=== PATIENT | female | born 1955 | race Caucasian/White ===

== ENCOUNTER 2019-03-22 17:15 | Emergency (ER) | payer BC, MEDICARE, SELFPAY ==
[2019-03-22 17:29] VITALS: BP 179/90; PULSE 58; RESP 16; TEMP 36.7; O2SAT 97; BMI 28.9
--- NOTE | 2019-03-22 18:26 | CTR_ITS ---
PROCEDURE INFORMATION: Exam: CT Abdomen And Pelvis With Contrast Exam date and time: 03/22/2019 6:50 PM Age: 63 years old Clinical indication: Other: Diarrhea; Abdominal pain; Localized; Left; Prior surgery; Surgery type: Hysto; Additional info: L lower abdominal pain/back pain TECHNIQUE: Imaging protocol: Computed tomography of the abdomen and pelvis with intravenous contrast. Total DLP: 792.51 mGy-cm Radiation optimization: All CT scans at this facility use at least one of these dose optimization techniques: automated exposure control; mA and/or kV adjustment per patient size (includes targeted exams where dose is matched to clinical indication); or iterative reconstruction. Contrast material: OMNI 300; Contrast volume: 95 ml; Contrast route: IV; COMPARISON: CT Abdomen/Pelvis Renal [id number] 04/25/2012 5:27 PM FINDINGS: Lungs: There is subpleural atelectasis of the dependent portions of the lungs. Liver: Unremarkable.No mass. Gallbladder and bile ducts: The gallbladder is contracted. Pancreas: Normal. No ductal dilation. Spleen: Normal. No splenomegaly. Adrenals: Normal. No mass. Kidneys and ureters: There is no evidence of hydronephrosis. There is no evidence of renal calcifications. Stomach and bowel: Extensive diverticulosis is present in the distal colon. The wall of the descending and sigmoid colon appears mildly thickened but is also collapsed and the appearance is very similar to the prior exam. This appearance may reflect lack of distention or less likely mild colitis since there is no adjacent inflammatory change or induration of the adjacent fat. No focal diverticulitis. The loops of small bowel have an appropriate appearance. Appendix: A normal appendix is identified. Intraperitoneal space: Unremarkable. No free air. No significant fluid collection. Vasculature: The aorta demonstrates moderate atherosclerotic calcification. Lymph nodes: Unremarkable.No enlarged lymph nodes. Bladder: There is nonspecific bladder wall thickening. This may be related to incomplete distention. Reproductive: Unremarkable as visualized. Bones/joints: Moderate degenerative changes are noted in the spine. No acute bony abnormality. Soft tissues: Unremarkable. CT/CT abdomen pelvis w con* [id number] IMPRESSION: Extensive diverticulosis. The wall of the descending and sigmoid colon appears mildly thickened. This appearance may reflect mild colitis or lack of distention similar to the prior exam. Otherwise, no acute abnormality. Radiation Dose CTDIVOL = (mGy): DLP = 792.51 (mGy-cm)
[2019-03-22 18:42] LABS: Basophils # 0.1 10^3/uL (0.0-0.1); Basophils % 0.9 %; Eosinophils # 0.3 10^3/uL (0.0-0.8); Hematocrit 35.3 % (37.0-47.0); Hemoglobin 11.6 g/dL (11.5-15.3); Lymphocytes % 46.4 %; Mean Corpuscular HGB Conc 32.9 g/dL (30.0-36.0); Mean Corpuscular Hemoglobin 29.8 pg (28.0-34.0); Mean Corpuscular Volume 90.7 fL (81-99); Mean Platelet Volume 10.3 fL (7.4-10.4); Monocytes # 0.4 10^3/uL (0.2-0.9); Monocytes % 6.1 %; Neutrophils # 2.7 10^3/uL (1.8-7.7); Neutrophils % 41.4 %; Nucleated Red Blood Cells % 0 %; Platelet Count 190 10^3/cmm (130-400); Red Blood Count 3.89 10^6/uL (4.1-5.3); Red Cell Distribution Width 12.6 % (12.1-15.1); White Blood Count 6.4 10^3/uL (4.0-10.0)
[2019-03-22 19:01] LABS: Alanine Aminotransferase 11 U/L (0-33); Albumin Level 4.3 g/dL (3.5-5.2); Alkaline Phosphatase 81 IU/L (35-105); Anion Gap 14.8 (5-19); Aspartate Amino Transferase 19 U/L (0-32); Blood Urea Nitrogen 12 mg/dL (8-23); Calcium 9.1 mg/dL (8.5-10.5); Carbon Dioxide 29 mmol/L (22-29); Chloride 101 mmol/L (98-107); Globulin 2.7 g/dL (1.3-4.6); Glucose 123 mg/dL (65-115); Potassium 3.8 mmol/L (3.5-5.1); Sodium 141 mmol/L (136-145); Total Bilirubin 0.2 mg/dL (0.15-1.2)
[2019-03-22 19:32] LABS: Add Urine Microscopic? NO
[2019-03-22] MEDS: iohexol 300 mg/mL 100 mL Btl 95 ML IV (19:39)
[2019-03-22 19:40] LABS: Bilirubin Urine Neg (NEGATIVE); Blood Urine Neg (Negative); Glucose Urine UA Norm (Normal); Ketones Urine Negative (Negative); Leukocyte Esterase Urine Negative (Negative); Nitrate Urine Negative (Negative); Protein Urine Neg (Negative); Specific Gravity, Urine 1.015 (1.005-1.030); Urine Appearance Clear (CLEAR); Urine Color Yellow (Yellow); Urobilinogen Urine Norm (Negative); pH Urine 6.5 (5-7)
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
[2019-03-22 20:50] VITALS: BP 114/65; PULSE 65; RESP 18; O2SAT 98
== END 2019-03-22 20:51 | disposition home or self-care (01) ==
PROVIDERS: Emergency Provider Physician Assistant; Family Provider Nurse Practitioner; PCP Nurse Practitioner
DX: K57.90 Diverticulosis of intestine, part unspecified, without perforation or abscess without bleeding (principal); K52.9 Noninfective gastroenteritis and colitis, unspecified; I10 Essential (primary) hypertension; Z87.891 Personal history of nicotine dependence
CPT/HCPCS: 74177; 80053; 81003; 85025; 99281; 99283; A9270; Q9967

== ENCOUNTER → 2019-04-01 10:39 | Outpatient (BNVA) | payer BC, MEDICARE, SELFPAY | PROVIDERS: Family Provider Nurse Practitioner; PCP Nurse Practitioner; Visit Provider Nurse Practitioner | DX: I10 Essential (primary) hypertension (principal); E03.8 Other specified hypothyroidism | CPT/HCPCS: 80061; 84443 ==

== ENCOUNTER → 2019-08-21 13:41 | Outpatient (BNVA) | payer BC, MEDICARE, SELFPAY | PROVIDERS: Family Provider Nurse Practitioner; PCP Nurse Practitioner; Visit Provider Nurse Practitioner Family | DX: R53.83 Other fatigue (principal); R07.9 Chest pain, unspecified; E78.2 Mixed hyperlipidemia; G47.33 Obstructive sleep apnea (adult) (pediatric); F41.9 Anxiety disorder, unspecified; F32.9 Major depressive disorder, single episode, unspecified; E03.8 Other specified hypothyroidism | CPT/HCPCS: 80053; 82550; 84443; 84484; 85025 ==

== ENCOUNTER 2019-09-03 14:13 | Emergency (ER) | payer BC, MEDICARE, SELFPAY ==
[2019-09-03 14:26] VITALS: BP 141/91; PULSE 69; RESP 16; TEMP 36.8; O2SAT 96; BMI 27.9
[2019-09-03 14:48] VITALS: BP 123/100; PULSE 61; RESP 16; O2SAT 98
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
--- NOTE | 2019-09-03 14:50 | CT_ITS ---
WS: [id number] CT ABDOMEN AND PELVIS WITH CONTRAST HISTORY: RIGHT lower quadrant pain. TECHNIQUE: Imaging performed of the abdomen and pelvis with IV contrast. Single phase imaging of the abdomen. Coronal and sagittal reformats are submitted. All CT scans at [facility] use at least one of these dose optimization techniques: automated exposure control; mA and/or kV adjustment per patient size (includes targeted exams where dose is matched to clinical indication); or iterativ e reconstruction. IV CONTRAST: Omnipaque 300; 95 mL IV. Oral contrast: No DLP: 638.09 mGy.cm COMPARISON: 03/22/2019 Lower thorax: Lung bases are clear. Mild cardiomegaly. Small hiatal hernia. Liver/biliary system: Normal size with no intrahepatic dilatation. Gallbladder: Normal. No gallstones or wall thickening. No pericholecystic fluid. Pancreas: Normal. Spleen: Normal. Adrenal glands: Normal. Right kidney: Normal size kidney. There are multiple small hypodensities scattered throughout the cor albin. No solid mass identified. No obstruction. Left kidney: A few scattered cortical hypodensities similar to the prior study. No obstruction or elena id mass. Aorta: Extensive moderate atherosclerosis. No aneurysm. Lymphadenopathy: None. Free fluid: None. GI tract: The appendix is normal and contains air. No hyperemia or wall thickening. Numerous divertic varinder in the sigmoid and descending colon. There is mild chronic wall thickening without evidence for a cute diverticulitis. No GI tract obstruction. Very mild mucosal thickening involving the hepatic flex ure and transverse colon. Abdominal wall: Unremarkable abdominal wall. No hernia. Pelvis: No free fluid or adenopathy. Urinary bladder is negative. Bones: Mild degenerative disc disease at L2-3. CT/CT abdomen pelvis w con* [id number] IMPRESSION: 1. Normal appendix. 2. Numerous diverticula in the descending and sigmoid colon without evidence f or acute diverticulitis. 3. Suspect very minimal colitis involving the hepatic flexure and transverse c olon. 4. No ascites or adenopathy.
[2019-09-03 14:56] LABS: Bilirubin Urine Neg (NEGATIVE); Blood Urine Neg (Negative); Glucose Urine UA Norm (Normal); Ketones Urine Negative (Negative); Nitrate Urine Negative (Negative); Protein Urine Neg (Negative); Specific Gravity, Urine 1.005 (1.005-1.030); Urine Appearance Clear (CLEAR); Urine Color Yellow (Yellow); pH Urine 7 (5-7)
[2019-09-03 14:57] LABS: Leukocyte Esterase Urine Negative (Negative); Urobilinogen Urine Neg (Negative)
[2019-09-03 14:59] LABS: Add Urine Culture? No; Bacteria Urine TRACE; RBC Urine 0-4 /hpf (0-2); Squamous Epithelial Cell Urine 0-4 (0-5)
[2019-09-03 15:03] LABS: Basophils # 0.1 10^3/uL (0.0-0.1); Basophils % 0.9 %; Eosinophils # 0.1 10^3/uL (0.0-0.8); Eosinophils % 1.8 %; Hematocrit 37.4 % (37.0-47.0); Lymphocytes # 1.8 10^3/uL (0.8-4.8); Mean Corpuscular HGB Conc 32.1 g/dL (30.0-36.0); Mean Corpuscular Hemoglobin 30.7 pg (28.0-34.0); Mean Corpuscular Volume 95.7 fL (81-99); Mean Platelet Volume 10.2 fL (7.4-10.4); Monocytes # 0.3 10^3/uL (0.2-0.9); Monocytes % 5.8 %; Neutrophils # 3.23 10^3/uL (1.8-7.7); Neutrophils % 58.3 %; Nucleated Red Blood Cells % 0 %; Platelet Count 215 10^3/cmm (130-400); Red Blood Count 3.91 10^6/uL (4.1-5.3); White Blood Count 5.5 10^3/uL (4.0-10.0)
[2019-09-03] MEDS: iohexol 300 mg/mL 100 mL Btl IV (15:14)
[2019-09-03 15:20] LABS: Alanine Aminotransferase 13 U/L (0-33); Albumin Level 4.5 g/dL (3.5-5.2); Alkaline Phosphatase 80 IU/L (35-105); Anion Gap 14.9 (5-19); Aspartate Amino Transferase 21 U/L (0-32); Blood Urea Nitrogen 10 mg/dL (8-23); Calcium 8.9 mg/dL (8.5-10.5); Carbon Dioxide 25 mmol/L (22-29); Chloride 103 mmol/L (98-107); Globulin 2.6 g/dL (1.3-4.6); Glucose 145 mg/dL (65-115); Lipase 29 U/L (13-60); Osmolality Calculated 287 mOsm/kg (285-295); Potassium 3.9 mmol/L (3.5-5.1); Sodium 139 mmol/L (136-145); Total Bilirubin 0.2 mg/dL (0.15-1.2); Total Protein 7.1 g/dL (6.6-8.7)
[2019-09-03 16:01] VITALS: BP 137/81; PULSE 54; PULSE 55; RESP 17; O2SAT 96; O2SAT 97
== END 2019-09-03 16:08 | disposition home or self-care (01) ==
PROVIDERS: Emergency Medicine; Emergency Provider Nurse Practitioner Family; PCP Nurse Practitioner
DX: R10.31 Right lower quadrant pain (principal); I10 Essential (primary) hypertension; Z87.891 Personal history of nicotine dependence
CPT/HCPCS: 12345; 74177; 80053; 81001; 83690; 85025; 99282; 99283; Q9967

== ENCOUNTER → 2019-09-10 17:27 | Outpatient (BNVA) | payer BC, MEDICARE, SELFPAY | PROVIDERS: PCP Nurse Practitioner; Visit Provider Nurse Practitioner | DX: R73.9 Hyperglycemia, unspecified (principal); E03.8 Other specified hypothyroidism; G47.00 Insomnia, unspecified; F41.1 Generalized anxiety disorder | CPT/HCPCS: 83036 ==

== ENCOUNTER → 2019-09-26 14:17 | Outpatient (BNVA) | payer BC, MEDICARE, SELFPAY | PROVIDERS: PCP Nurse Practitioner; Visit Provider Internal Medicine | DX: E89.0 Postprocedural hypothyroidism (principal); G47.33 Obstructive sleep apnea (adult) (pediatric); R07.9 Chest pain, unspecified; E78.49 Other hyperlipidemia; R32 Unspecified urinary incontinence; E55.9 Vitamin D deficiency, unspecified; R73.03 Prediabetes | CPT/HCPCS: 99204 ==

== ENCOUNTER → 2019-10-28 14:09 | Outpatient (BNVA) | payer BC, MEDICARE, SELFPAY | PROVIDERS: PCP Nurse Practitioner; Visit Provider Internal Medicine | DX: E55.9 Vitamin D deficiency, unspecified (principal); E78.49 Other hyperlipidemia; E89.0 Postprocedural hypothyroidism; G47.33 Obstructive sleep apnea (adult) (pediatric); R73.03 Prediabetes | CPT/HCPCS: 99214 ==

== ENCOUNTER → 2019-11-04 12:27 | Outpatient (BNVA) | payer BC, MEDICARE, SELFPAY | PROVIDERS: PCP Nurse Practitioner; Visit Provider Nurse Practitioner | DX: M79.7 Fibromyalgia (principal); E55.9 Vitamin D deficiency, unspecified | CPT/HCPCS: 82306; 84439; 84443; 85025 ==

== ENCOUNTER → 2020-01-27 17:47 | Outpatient (BNVA) | payer BC, MEDICARE, SELFPAY | PROVIDERS: PCP Nurse Practitioner; Visit Provider Nurse Practitioner Family | DX: Z20.828 Contact with and (suspected) exposure to other viral communicable diseases (principal) | CPT/HCPCS: 87635 ==

== ENCOUNTER → 2020-02-10 15:40 | Outpatient (BNVA) | payer BC, MEDICARE, SELFPAY | PROVIDERS: PCP Nurse Practitioner; Visit Provider Internal Medicine | DX: E55.9 Vitamin D deficiency, unspecified (principal); E78.49 Other hyperlipidemia; E89.0 Postprocedural hypothyroidism; G47.33 Obstructive sleep apnea (adult) (pediatric); R73.03 Prediabetes | CPT/HCPCS: 99214 ==

== ENCOUNTER → 2020-02-18 12:23 | Outpatient (BNVA) | payer BC, MEDICARE, SELFPAY | PROVIDERS: PCP Nurse Practitioner; Visit Provider Nurse Practitioner | DX: Z20.828 Contact with and (suspected) exposure to other viral communicable diseases (principal) | CPT/HCPCS: 87635 ==

== ENCOUNTER → 2020-03-19 14:55 | Outpatient (BNVA) | payer BC, MEDICARE, SELFPAY | PROVIDERS: PCP Nurse Practitioner; Visit Provider Nurse Practitioner Family | DX: Z20.828 Contact with and (suspected) exposure to other viral communicable diseases (principal); J02.9 Acute pharyngitis, unspecified; J45.909 Unspecified asthma, uncomplicated | CPT/HCPCS: 87071; 87635; 87880 ==

== ENCOUNTER → 2020-05-05 15:48 | Outpatient (BNVA) | payer BC, MEDICARE, SELFPAY | PROVIDERS: PCP Nurse Practitioner; Visit Provider Nurse Practitioner | DX: E55.9 Vitamin D deficiency, unspecified (principal); E78.49 Other hyperlipidemia; E89.0 Postprocedural hypothyroidism; F41.1 Generalized anxiety disorder; H61.21 Impacted cerumen, right ear; R32 Unspecified urinary incontinence; G47.00 Insomnia, unspecified | CPT/HCPCS: 80061; 82306; 83721; 84439; 84443 ==

== ENCOUNTER 2020-06-03 06:00 | Outpatient (RCR) | payer BC, MEDICARE, SELFPAY | END 2020-06-12 23:59 | disposition home or self-care (01) | LOC: TPT 06:00 | PROVIDERS: PCP Nurse Practitioner; Referring Provider Nurse Practitioner Family; Visit Provider Nurse Practitioner Family | DX: M54.2 Cervicalgia (principal); G89.29 Other chronic pain | CPT/HCPCS: 97110; 97140; 97161 ==

== ENCOUNTER 2020-06-13 06:00 | Outpatient (RCR) | payer MEDICARE, BC, SELFPAY | END 2020-07-13 23:59 | disposition home or self-care (01) | LOC: TPT 06:00 | PROVIDERS: PCP Nurse Practitioner; Referring Provider Nurse Practitioner Family; Visit Provider Nurse Practitioner Family | DX: M54.2 Cervicalgia (principal); G89.29 Other chronic pain | CPT/HCPCS: 97110; 97140 ==

== ENCOUNTER → 2020-08-04 15:08 | Outpatient (BNVA) | payer MEDICARE, BC, SELFPAY | PROVIDERS: PCP Nurse Practitioner; Visit Provider Nurse Practitioner | DX: E03.8 Other specified hypothyroidism (principal); I10 Essential (primary) hypertension; J45.20 Mild intermittent asthma, uncomplicated; Z78.0 Asymptomatic menopausal state | CPT/HCPCS: 80053; 80061; 83721; 84439; 84443; 84481; 85025 ==

== ENCOUNTER → 2020-08-07 10:02 | Outpatient (BNVA) | payer MEDICARE, BC, SELFPAY | PROVIDERS: PCP Nurse Practitioner; Visit Provider Nurse Practitioner | DX: Z20.822 Contact with and (suspected) exposure to COVID-19 (principal) | CPT/HCPCS: 87635 ==

== ENCOUNTER 2020-10-10 10:02 | Outpatient (CLI) | payer MEDICARE, BC, SELFPAY ==
[2020-10-10 10:17] VITALS: BP 161/79; PULSE 57; RESP 20; TEMP 36.7; O2SAT 96; BMI 29.2
[2020-10-10 11:15] VITALS: BP 148/76; PULSE 58; RESP 20; TEMP 37.4; O2SAT 95
[2020-10-10 12:12] VITALS: BP 155/78; PULSE 58; RESP 16; TEMP 37.1; O2SAT 92
== END 2020-10-10 12:12 | disposition home or self-care (01) ==
PROVIDERS: PCP Nurse Practitioner; Visit Provider Nurse Practitioner Family
DX: U07.1 COVID-19 (principal)
CPT/HCPCS: 96365

== ENCOUNTER → 2020-12-17 14:05 | Outpatient (BNVA) | payer BC, MEDICARE, SELFPAY | PROVIDERS: PCP Nurse Practitioner; Visit Provider Nurse Practitioner | DX: E03.8 Other specified hypothyroidism (principal); E78.5 Hyperlipidemia, unspecified | CPT/HCPCS: 80053; 80061; 84443 ==

== ENCOUNTER → 2021-04-12 15:28 | Outpatient (BNVA) | payer BC, MEDICARE, SELFPAY | PROVIDERS: PCP Nurse Practitioner; Visit Provider Nurse Practitioner | DX: I10 Essential (primary) hypertension (principal); B00.9 Herpesviral infection, unspecified; L57.8 Other skin changes due to chronic exposure to nonionizing radiation | CPT/HCPCS: 81003 ==

== ENCOUNTER → 2021-10-19 11:59 | Outpatient (BNVA) | payer BC, MEDICARE, SELFPAY | PROVIDERS: PCP Nurse Practitioner; Visit Provider Nurse Practitioner | DX: E55.9 Vitamin D deficiency, unspecified (principal); R53.83 Other fatigue; E03.8 Other specified hypothyroidism; G47.00 Insomnia, unspecified; I10 Essential (primary) hypertension; R32 Unspecified urinary incontinence | CPT/HCPCS: 80053; 82306; 82607; 84443; 85025 ==

== ENCOUNTER → 2022-02-03 09:12 | Outpatient (BNVA) | payer BC, MEDICARE, SELFPAY | PROVIDERS: PCP Nurse Practitioner; Visit Provider Nurse Practitioner | DX: I10 Essential (primary) hypertension (principal) | CPT/HCPCS: 80053; 80061; 84443 ==

== ENCOUNTER → 2022-07-04 14:29 | Outpatient (BNVA) | payer BC, MEDICARE, SELFPAY | PROVIDERS: PCP Nurse Practitioner; Visit Provider Nurse Practitioner | DX: E55.9 Vitamin D deficiency, unspecified (principal); J45.909 Unspecified asthma, uncomplicated; E03.8 Other specified hypothyroidism; I10 Essential (primary) hypertension | CPT/HCPCS: 80053; 80061; 82306; 84443 ==

== ENCOUNTER → 2022-08-24 13:47 | Outpatient (BNVA) | payer BC, MEDICARE, SELFPAY | PROVIDERS: PCP Nurse Practitioner; Visit Provider Nurse Practitioner | DX: E03.8 Other specified hypothyroidism (principal) | CPT/HCPCS: 80053; 84439; 84443; 84481; 85025 ==

== ENCOUNTER → 2022-09-26 16:03 | Outpatient (BNVA) | payer BC, MEDICARE, SELFPAY | PROVIDERS: PCP Nurse Practitioner; Visit Provider Internal Medicine Cardiovascular Disease | DX: I47.1 Supraventricular tachycardia (principal); E03.8 Other specified hypothyroidism; R73.9 Hyperglycemia, unspecified; R94.31 Abnormal electrocardiogram [ECG] [EKG] | CPT/HCPCS: 83036; 84443; 93005 ==

== ENCOUNTER → 2022-10-04 14:58 | Outpatient (BNVA) | payer BC, MEDICARE, SELFPAY | PROVIDERS: PCP Nurse Practitioner; Visit Provider Nurse Practitioner | DX: R05.9 Cough, unspecified (principal) | CPT/HCPCS: 71046 ==

== ENCOUNTER → 2022-11-10 10:56 | Outpatient (BNVA) | payer BC, MEDICARE, SELFPAY | PROVIDERS: PCP Nurse Practitioner; Visit Provider Nurse Practitioner | DX: E03.8 Other specified hypothyroidism (principal) | CPT/HCPCS: 84439; 84443; 84481 ==

== ENCOUNTER → 2022-12-07 13:37 | Outpatient (BNVA) | payer BC, MEDICARE, SELFPAY | PROVIDERS: PCP Nurse Practitioner; Visit Provider Nurse Practitioner | DX: E03.8 Other specified hypothyroidism (principal) | CPT/HCPCS: 84439; 84443; 84481 ==

== ENCOUNTER 2022-12-24 21:26 | Observation (INO) | payer BC, MEDICARE, SELFPAY ==
--- NOTE | 2022-12-24 21:26 | ECG_ITS ---
[facility] Test Date: 2022-12-24 Pat Name: Simran Pendleton Department: Room: Gender: Female Film Masker: : 1955 Requested By: Lester Farmer Order Number: [id number] Angelito MD: Martita Jordan M.D. Measurements Intervals Fleming Rate: 76 P: 53 CT: 160 QRS: 38 QRSD: 89 T: 10 QT: 315 QTc: 354 Interpretive Statements SINUS RHYTHM WITH OCCASIONAL VENTRICULAR PREMATURE COMPLEXES NONSPECIFIC T-WAVE ABNORMALITY Compared to ECG 09/26/2022 16:07:23 Possible ischemia no longer present T-wave abnormality still present Electronically Signed On 12-25-2022 8:28:56 MANAGER OF CREATIVE SERVICES by Martita Jordan M.D. [email or web address]/[id number] f
[2022-12-24 21:27] VITALS: BP 175/103; PULSE 76; RESP 16; TEMP 36.5; O2SAT 95
--- NOTE | 2022-12-24 21:45 | XRR_ITS ---
PROCEDURE INFORMATION: Exam: XR Chest Exam date and time: 12/24/2022 10:05 PM Age: 67 years old Clinical indication: Chest pressure; Patient HX: Sudden onset chest pain; No previous cardiac HX TECHNIQUE: Imaging protocol: Radiologic exam of the chest. Views: 1 view. COMPARISON: CR XR chest 2V* [id number] 10/04/2022 2:59 PM FINDINGS: Lungs: Unremarkable. No consolidation. Pleural spaces: Unremarkable. No pleural effusion. No pneumothorax. Heart/Mediastinum: Unremarkable. No cardiomegaly. Bones/joints: Unremarkable. XR/XR chest 1V portable [id number] IMPRESSION: No acute findings.
[2022-12-24 22:10] LABS: Basophils % 0.7 %; Eosinophils # 0.1 10^3/uL (0.0-0.8); Eosinophils % 1.7 %; Hematocrit 37.8 % (36-47); Lymphocytes # 1.8 10^3/uL (0.8-4.8); Lymphocytes % 30.8 %; Mean Corpuscular HGB Conc 32.5 g/dL (30-55); Mean Corpuscular Hemoglobin 30.2 pg (27-33); Mean Corpuscular Volume 92.9 fl (85-98); Mean Platelet Volume 9.4 fL (7.4-10.4); Monocytes # 0.4 10^3/uL (0.2-0.9); Monocytes % 7.4 %; Neutrophils # 3.53 10^3/uL (1.8-7.7); Neutrophils % 58.9 %; Nucleated Red Blood Cells % 0 %; Platelet Count 196 10^3/cmm (157-399); Red Blood Count 4.07 10^6/uL (3.85-5.65); White Blood Count 5.98 10^3/uL (3.29-11.43)
[2022-12-24] MEDS: ondansetron 2 mg/ML SDV 2 mL 4 MG IVP (22:15)
[2022-12-24] MEDS: lidocaine 2% viscous 15 ML, aluminum-mag hydrox-simethicon 30 ML, sucralfate oral liq 1 GM PO (22:15)
[2022-12-24] MEDS: morphine 4 mg/mL SDV 1 mL IVP (22:15)
[2022-12-24 22:28] LABS: Troponin(5th) Baseline 9 ng/L (0-10)
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
[2022-12-24 22:45] LABS: Alanine Aminotransferase 15 U/L (0-33); Albumin Level 4.3 g/dL (3.5-5.2); Alkaline Phosphatase 87 U/L (35-105); Anion Gap 17.6 (5-19); Aspartate Amino Transferase 16 U/L (0-32); Blood Urea Nitrogen 16 mg/dL (8-23); Calcium 8.5 mg/dL (8.5-10.5); Carbon Dioxide 23 mmol/L (22-29); Chloride 102 mmol/L (98-107); Creatine Phosphokinase 56 U/L (26-192); Globulin 2.2 g/dL (1.3-4.6); Glomerular Filtration Rate 62.3 mL/min (90-130); Glucose 168 mg/dL (65-115); NT Pro B Type Natriuretic Pept 198 pg/mL (0-125); Osmolality Calculated 293 mOsm/kg (285-295); Potassium 3.6 mmol/L (3.5-5.1); Sodium 139 mmol/L (136-145); Total Bilirubin 0.2 mg/dL (0.15-1.2); Total Protein 6.5 g/dL (6.6-8.7)
[2022-12-25] VITALS (28 sets, daily range): BP systolic 111–167; BP diastolic 66–98; PULSE 62–89; RESP 10–25; TEMP 36.5–36.9; O2SAT 94–100
[2022-12-25] MEDS: ketorolac 30 mg/mL INJ IVP (00:08)
[2022-12-25 00:20] LABS: Troponin 5 2HR 34.93 ng/L (0-10)
[2022-12-25 00:25] LABS: Troponin 5 2HR Delta 25.93 ABS# (0-10)
[2022-12-25] MEDS: nitroglycerin 1 gm/inch oint Pkt 1 INCH TOPICAL (00:48)
[2022-12-25] MEDS: clopidogrel 300 mg Tablet PO (00:48)
[2022-12-25] MEDS: enoxaparin 80 mg/0.8 mL Syringe SUBCUT ×2 (01:54→15:00)
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
[2022-12-25] MEDS: famotidine 20 mg/2 mL INJ IVP (03:22)
--- NOTE | 2022-12-25 03:23 | USCV_ITS ---
Simran Pendleton Age: 67 Gender: F : 1955 Exam Date: 12/25/2022 06:22 Ordering Phys: Brendan Sharif MD Technologist: Dusty Woods Exam Location: [facility] Indication: nstemi BP: 133 / 98 HR: 70 Rhythm: Sinus Technical Quality: Adequate MEASUREMENTS (Male / Female) Normal Values 2D ECHO LVOT Diameter 2.0 cm LV Ejection Fraction MOD 2C 74.8 % LV Ejection Fraction 2C AL 75.2 % LA Diameter 3.5 cm LA Width 3.5 cm LA Height 4.1 cm RA Width 2.8 cm RA Height 4.1 cm Aorta at Sinotubular Diameter 2.5 cm M-MODE Aortic Annulus Diameter 2.7 cm LA Ao Ratio MM 1.3 MV E Point Septal Separation 0.6 cm DOPPLER AV Peak Velocity 118.0 cm/s LVOT Peak Velocity 87.0 cm/s AV Area Cont Eq vti 2.2 cm squared AV Area Cont Eq pk 2.3 cm squared MV Peak Velocity 93.0 cm/s MV Area PHT 5.0 cm squared Mitral E to A Ratio 0.8 MV E' Velocity 30.0 cm/s Mitral E to MV E' Ratio 7.9 Mitral E to LV E' Lateral Ratio 8.6 Mitral E to LV E' Septal Ratio 7.5 TR Peak Velocity 149.6 cm/s TR Peak Gradient 9.0 mmHg TR Mean Velocity 105.0 cm/s TR Mean Gradient 4.9 mmHg TR Velocity Time Integral 34.5 cm Right Atrial Pressure 8.0 mmHg Pulmonary Artery Systolic Pressu 17.0 mmHg PV Peak Velocity 90.7 cm/s RV Acceleration Time 0.1 s RV Ejection Time 0.3 s RV AcT/ET 0.5 FINDINGS Left Ventricle Normal left ventricular size, systolic function and wall thickness, with no regional wall motion abnormalities. Normal left ventricular wall thickness. Stage I diastolic dysfunction Right Ventricle The right ventricle is normal in size and function. Right Atrium The right atrium is normal in size. Left Atrium The left atrium is normal in size. Mitral Valve Structurally normal mitral valve without significant stenosis or prolapse. There is no mitral regurgitation. Aortic Valve Structurally normal aortic valve without significant sclerosis or stenosis. There is no aortic regurgitation. Tricuspid Valve Structurally normal tricuspid valve without significant stenosis. There is trace regurgitation. Pulmonary artery systolic pressure is normal. Pulmonic Valve Structurally normal pulmonic valve without significant stenosis. There is no pulmonic regurgitation. Pericardium Normal pericardium without effusion. Aorta Normal ascending aorta dimension. IVC The inferior vena cava appears normal. CONCLUSIONS Tri Smith MD (Electronically Signed) Final Date: 25 December 2022 11:03 S
--- NOTE | 2022-12-25 03:45 | ECG_ITS ---
[facility] Test Date: 2022-12-25 Pat Name: Simran Pendleton Department: Room: 102 Gender: Female Leather Carver: : 1955 Requested By: Lester Farmer Order Number: [id number] Angelito MD: Martita Jordan M.D. Measurements Intervals [place] Rate: 62 P: 14 [place]: 176 QRS: 16 QRSD: 87 T: -34 QT: 433 QTc: 443 Interpretive Statements SINUS RHYTHM MODERATE T-WAVE ABNORMALITY, CONSIDER ANTERIOR ISCHEMIA [-0.1+ mV T-WAVE IN V3/V4] Compared to ECG 12/24/2022 21:26:57 Possible ischemia now present Ventricular premature complex(es) no longer present T-wave abnormality still present Electronically Signed On 12-25-2022 8:33:59 FURNACE COMBUSTION TESTER by Martita Jordan M.D. [id number]
[2022-12-25 04:32] LABS: Troponin 5 6HR 142.5 ng/L (0-10); Troponin 5 6HR Delta 133.5 ng/L (0-12)
[2022-12-25] MEDS: budesonide 0.5 mg/2 mL Neb INHALATION ×2 (08:29→20:24)
[2022-12-25] MEDS: albuterol 2.5 mg/3 mL Neb INHALATION ×4 (08:30→20:24)
--- NOTE | 2022-12-25 08:30 | PC.NURSE ---
pt stated she has left neck pain radiating to her left shoulder pain and left upper chest area. Rated at 8/10 per pain scale. EKG taken. Notified die machine operator.
[2022-12-25] MEDS: isosorbide mononitrate ER 30 mg Tablet PO (09:18)
[2022-12-25] MEDS: aspirin 325 mg Tablet PO (09:18)
[2022-12-25] MEDS: thyroid 60 mg Tablet PO (09:18)
--- NOTE | 2022-12-25 10:03 | ECG_ITS ---
[facility] Test Date: 2022-12-25 Pat Name: Simran Pendleton Department: Room: 102 Gender: Female Graduate Assistant: : 1955 Requested By: Darian Robbins Order Number: [id number] Angelito MD: Martita Jordan M.D. Measurements Intervals [place] Rate: 71 P: 7 [place]: 177 QRS: 18 QRSD: 90 T: 78 QT: 412 QTc: 449 Interpretive Statements SINUS RHYTHM ST DEVIATION AND MODERATE T-WAVE ABNORMALITY, CONSIDER ANTERIOR ISCHEMIA [-0.1+ mV T-WAVE IN V3/V4] INTERPRETATION BASED ON A DEFAULT AGE OF 40 YEARS Compared to ECG 12/25/2022 03:58:10 No significant changes Electronically Signed On 12-26-2022 8:10:04 STORAGE AND BACKUP ADMINISTRATOR by Martita Jordan M.D. [id number] f
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
[2022-12-25] MEDS: nitroglycerin 0.4 mg sublingual Tablet SUBLINGUAL ×5 (11:05→16:59)
--- NOTE | 2022-12-25 11:35 | PC.NURSE ---
chest pain and left shoulder pain is down from 4/10 to 2/10 per pain scale by nitro sl x3 doses. Pt now complains of leg and feet pain from her fibromyalgia and takes hydrocodone for it. Shipping Receiving Manager notified in person of her pain is down to 2 after 3 doses of nitro sl.
[2022-12-25] MEDS: HYDROcodone-acetaminophen 7.5-325 mg Tablet 1 TAB PO (11:45)
--- NOTE | 2022-12-25 12:23 | PC.NURSE ---
per military education coordinator patient can eat soft diet only and order for one time troponin and monitor for further recurrent chest pains.
[2022-12-25 13:28] LABS: Troponin T (5th) Once 185 ng/L (0-10)
--- NOTE | 2022-12-25 13:33 | PC.NURSE ---
Pt denies any chest pain or Left shoulder pain at this time when asked. She stated, none. She was asking for a sweet tea. Educated pt that if she started to have a recurrent chest pain to let is know immediately. Notified ip architect for her one time troponin which is increased to 185.
--- NOTE | 2022-12-25 15:14 | PC.NURSE ---
pt denies any chest pain at this time she said, i'm doing good so far.
--- NOTE | 2022-12-25 16:43 | XACV_ITS ---
Exam Room: 2 Ht: 165 cm Wt: 83 kg BSA: 1.98 m2 Gender: Female : 1955 Any Known Allergies: Other Exam Priority: Routine Procedure(s): Procedure Description: Diagnostic procedure Procedure Description: PCI procedure Procedure Description: Left Heart Catheterization Procedure Description: Left ventriculography Procedure Description: Drug Eluting Coronary Stent Procedure Description: PTCA Procedure Description: Coronary Angiography Diagnostic Cath Status: Urgent Diagnostic Findings * Left main was normal. Left circumflex artery showed 80% stenosis in the midportion. Left anterior descending artery showed 50% diffuse lesion in the midportion. Right coronary artery showed minor luminal irregularities dominant vessel. LV gram revealed normal LV function with EF about 60%. PCI Status: Urgent Interventional Findings * Left circumflex artery lesion was revascularized using 3.5 x 26 mm drug-eluting Angelia with excellent results. Conclusions 1. Patient to continue her dual antiplatelet aspirin and Plavix. Post Op Diagnosis: Description: PCI to the left circumflex artery was performed using EBU 3.5 guiding catheter and cougar wire. 3.5 x 26 drug-eluting stent was placed with good results. Patient received Lovenox about 3 hours prior to the procedure Aggrastat bolus was given. Patient also had a loading dose of Plavix in the emergency room yesterday and received 1 Plavix 75 mg today. Right femoral artery was closed using Angio-Seal device. No complications Ventriculography Ejection Fraction: 60.0 % Pressures Phase:Rest AO : 174 / 79 ( 115 ) @ 12:33:42 PM 187 / 84 ( 117 ) @ 12:33:43 PM 166 / 92 ( 123 ) @ 12:33:43 PM 170 / 60 ( 72 ) @ 12:33:43 PM 216 / 82 ( 134 ) @ 12:33:43 PM LV : 208 / -18 / 15 @ 12:33:43 PM 214 / -16 / 24 @ 12:33:43 PM Clinical Evaluation EBL: 5mL-10mL Procedural Details Pre-Procedure Time Out. Identified patient by full name and date of as verbalized by the patient/guarantor. Does the consent match the physician's order: Yes. Accurate & Complete Informed Consent: Yes. Inpatient/Outpatient History & Physical on Chart: Yes. If H&P is completed, is and addenduem needed: No; If yes, is the addendum complete: N/A. Visualize and Verify Site with Patient/Guarantor: N/A. Relevant Radiology Images available: N/A. Pre-op teaching completed and patient verbalized understanding. The risks, benefits, and alternatives of sedation and/or procedure were discussed by physician. The patient agrees to continue. Procedure started. [facility] Clinical Fraility Score: 3: Managing Well. Limnologist Indications: Worsening Angina. Chest Pain Symptom Assessment: Typical Angina Symptoms. Correct patient, site and procedure confirmed by cath team. Current diagnosis: NSTEMI. PERRLA. Strong, equal hand trade specialist bilaterally. Lungs clear x 5 lobes. IV Site on Arrival: 20 gauge in the left anticubital. IV Fluids: 0.9% NaCl at KVO. 50 mL infused prior to stores laborer. Physician arrived. Physician notified. Pre Procedural Pulses: bilateral radial was 1+. Pre Procedural Pulses: bilateral dorsalis pedis was Doppled. Pre Procedural Pulses: bilateral posterior tibial was Doppled. Oxygen started at 2liters/min via nasal canula. right radial was prepped with chloroprep then draped in the usual sterile fashion. right groin was prepped with chloroprep then draped in the usual sterile fashion. Baseline sample Acquired. HR: 69 BPM. Admit Source: In Patient. Physician scrubbed in. Immediate Pre-Procedure Time Out. Correct Patient: Yes; Correct Procedure: Yes; Correct Site: Yes; Correct Patient Position: Yes; Correct Supplies: Yes; Dried Flammable Prep: Yes; Blood Products Available: No;. Lidocaine 1% infiltrated to the right radial. Ultrasound obtained to assist with radial artery access. An attempt to gain access to the right radial artery was unsuccessful. Manual pressure was held as needed to stop the bleeding. TR band placed. Hemostasis obtained. Unable to obtain radial access. MD attempting to gain access in the Femoral artery. Lidocaine 1% infiltrated to the right groin. Arterial access obtained with micropuncture set. A 5 swiss JL4 catheter in over wire. Multiple views taken of left coronary artery. Catheter removed over the exchange wire. A 5 swiss JR4 catheter in over wire. Multiple views taken of right coronary artery. Catheter removed over the standard wire. PCI Indication: NSTE. 6 swiss XB 3.5 guide catheter was inserted over the wire. [place] guidewire was advanced through the guide catheter to lesion in the mid Circ. Guidewire advanced across lesion. Stent inserted to lesion in the mid Circ. Inflation Number : 1 Jorge Luis Banerjee ANGELIA 3.5X26 BETHANY -Lot Number#[id number] EXP 05-28-2023 was prepped and advanced across the Mid CX. The stent was deployed at 14 LORAINE for 0:13 seconds. Stent balloon out over wire. Results checked. Wire out. Guide catheter out. A 5 swiss Angled Pig catheter in over wire. EDP Sample taken: LV 208/-19,15; HR: 76 BPM; SpO2: 98%. LV gram performed in SPARKS @ 10 mL/second for a total of 30 mL. EDP Sample taken: LV 214/-17,24; HR: 70 BPM; SpO2: 98%. Pullback taken: LV Off; AO Off; Mean: , Peak to Peak: , SEP: ; HR: 72 BPM; SpO2: 98%. A Right femoral angiogram was performed to determine safe placement of closure device. A Angio-Seal VIP (St. Ortega) was successful obtaining hemostatsis at the Right Femoral artery insertion site. LOT # [id number] EXP 05-14-2023. Post Procedure: Pulses reassessed and unchanged. PERRLA. Strong, equal hand trade specialist bilaterally. No VTE prophylaxis required. Medication's Wasted: Heparin = 1000 unit. Medication's Wasted: Other = Fentanyl 25mcg. Medication's Wasted: Nitro = 49.8 mg. Medication's Wasted: Other = Aggrastat 58 mL. Total IV fluids: 67 mL. Complications: None. Estimated blood loss: 5mL-10mL. Responsiveness - Normal response to verbal stimuli; alert and oriented, PERRLA. Airway - Unaffected, no intervention required; spontaneous ventilation. Post-op diagnosis: Severe mid left circumflex stenosis, status post PCI placement of 1 stent. Pino flow 3 pre and post. Circulation: W/N/L, pulses unchanged. Nausea/Vomiting: No. Procedure completed. Patient transferred by bed to 1st floor. An attempt to gain access to the right radial artery was unsuccessful. Manual pressure was held as needed to stop the bleeding. Results checked. Vital chart was stopped. Access Site Site: Right Femoral artery Sheath Size: 6 Fr Hemostasis Method: Angio-Seal VIP ([place]. Ortega) Hemostasis Success: Successful Procedure Medications Start: 5:36 PM Stop: 5:36 PM Medication: Versed Amount: 1 mg Route: I.V. Start: 5:37 PM Stop: 5:37 PM Medication: Fentanyl Amount: 50 mcg Route: I.V. Start: 5:37 PM Stop: 5:37 PM Medication: Benadryl Amount: 50 mg Route: I.V. Start: 6:12 PM Stop: 6:12 PM Medication: Aggrastat 12.5 mg/250 mL Amount: 42 ml Route: I.V. bolus Start: 6:13 PM Stop: 6:13 PM Medication: Versed Amount: 1 mg Route: I.V. Start: 6:14 PM Stop: 6:14 PM Medication: Nitrogylcerin Amount: 200 mcg Route: I.C. Start: 6:20 PM Stop: 6:20 PM Medication: Hydralazine Amount: 10 mg Route: I.V. Start: 6:21 PM Stop: 6:21 PM Medication: Fentanyl Amount: 25 mcg Route: I.V. Start: 6:21 PM Stop: 6:21 PM Medication: Hydralazine Amount: 10 mg Route: I.V. Start: 6:32 PM Stop: 6:32 PM Medication: Plavix Amount: 75 mg I, the attending physician, have reviewed and verified all procedure medications. Yes, all medications given per verbal order History/Risk Factors Hypertension: Yes Dyslipidemia: Yes Peripheral Arterial Disease (PAD): No Myocardial Infarction (VT): No Obesity: No Renal Disease: No Tobacco Use: Former Prior Interventions PCI: No CABG: No Valve Surgery: No Report Signatures Finalized by Tri Smith MD on 12/25/2022 06:41 PM
[2022-12-25] MEDS: acetaminophen 325 mg Tablet 650 MG PO (16:55)
[2022-12-25] MEDS: sodium chloride 0.9% 1,000 ML 50 ML IV (17:12)
--- NOTE | 2022-12-25 17:29 | PC.NURSE ---
taken to landscape laborer
--- NOTE | 2022-12-25 17:29 | PC.NURSE ---
1640 pm- chest tightness and neck pain pt stated she had a neck pain rated at 7/10 per pain scale. offerred her a tylenol which she is ok w/it. nurse came back w/med and she then started of chest tightness. clinical resource director called and telephone orders to call greenskeeper laborer team and give her a nitro SL. pt stated her chest tightness is not as bad as her neck pain right now. 2 doses of Nitro SL given w/c relieve her chest tigtness and took her tylenol. pt stated she just had a breathing treatment for her asthma given by RT.
[2022-12-25] MEDS: morphine 4 mg/mL SDV 1 mL 2 MG IVP ×2 (20:10→23:58)
[2022-12-25] MEDS: quetiapine 100 mg Tablet PO (20:25)
[2022-12-25] MEDS: atorvastatin 40 mg Tablet 80 MG PO (20:25)
[2022-12-25] MEDS: quetiapine 300 mg Tablet PO (20:26)
[2022-12-25] MEDS: duloxetine 30 mg Capsule PO (21:57)
[2022-12-26] VITALS (9 sets, daily range): BP systolic 150–163; BP diastolic 82–100; PULSE 75–86; RESP 14–18; TEMP 36.9; O2SAT 94–97
[2022-12-26] MEDS: morphine 4 mg/mL SDV 1 mL 2 MG IVP (04:12)
[2022-12-26 05:29] LABS: Basophils % 0.7 %; Eosinophils # 0.2 10^3/uL (0.0-0.8); Eosinophils % 2.7 %; Hematocrit 35.2 % (36-47); Lymphocytes # 1.9 10^3/uL (0.8-4.8); Lymphocytes % 34.8 %; Mean Corpuscular HGB Conc 31.8 g/dL (30-55); Mean Corpuscular Hemoglobin 29.9 pg (27-33); Mean Corpuscular Volume 94.1 fl (85-98); Mean Platelet Volume 9.4 fL (7.4-10.4); Monocytes # 0.4 10^3/uL (0.2-0.9); Neutrophils # 2.96 10^3/uL (1.8-7.7); Neutrophils % 53.6 %; Nucleated Red Blood Cells % 0 %; Platelet Count 180 10^3/cmm (157-399); Red Blood Count 3.74 10^6/uL (3.85-5.65); Red Cell Distribution Width 15.7 % (12.1-15.1); White Blood Count 5.52 10^3/uL (3.29-11.43)
[2022-12-26 05:53] LABS: Anion Gap 11.7 (5-19); Blood Urea Nitrogen 9 mg/dL (8-23); Carbon Dioxide 26 mmol/L (22-29); Chloride 108 mmol/L (98-107); Creatinine Clr Calc Pharmacy 71.6155; Glomerular Filtration Rate 71.3 mL/min (90-130); Glucose 102 mg/dL (65-115); Osmolality Calculated 293 mOsm/kg (285-295); Potassium 3.7 mmol/L (3.5-5.1); Sodium 142 mmol/L (136-145)
--- NOTE | 2022-12-26 08:04 | P.PN_ITS ---
Subjective Subjective: Luis Felipe was admitted 2 days ago with chest discomfort. Her troponin increased to 142. There were nonspecific changes on her EKG. She has a history of hypertension. She underwent angiography yesterday where a stent was placed to the mid circumflex. The procedure was uncomplicated. This morning she is slightly confused upon awakening. When I asked her if she was having pain she said yes pointing to her chest. I asked her if this was the same kind of chest pain that she had when she came in and she said she was not having chest pain that it was her left arm where the blood pressure cuff is. Ultimately, she states the chest pain is no longer happening. She states she thinks she just needs to wake up. Vitals/I&O/Wt Last Vital Signs Temp 98.5 F 12/26/22 07:21 Pulse 77 12/26/22 07:21 Resp 14 12/26/22 07:21 BP 150/92 12/26/22 07:21 Pulse Ox 95 12/26/22 07:21 O2 Del Method Room Air 12/26/22 07:21 12/25/22 12/26/22 12/26/22 22:59 06:59 14:59 Intake Total 480 / 840 240 / 1080 Balance 480 / 840 240 / 1080 Weight last 48 hrs Weight 183 lb Physical Exam Narrative: GENERAL: In general she is slightly groggy but otherwise in no distress HEENT: Exam within normal limits. NECK: Supple without jugular vein distention. The carotid upstroke is normal without bruits. BACK: Exam normal. LUNGS: Clear. HEART: Regular rate and rhythm. ABDOMEN: Benign without organomegaly or tenderness. EXTREMITIES: No edema. The right radial artery area is flat, dry without radha shane or bleeding. NEUROLOGIC: Exam normal. SKIN: Unremarkable. Data 12/26/22 05:19 12/26/22 05:19 A&P Assessment and plan (1) Non-ST elevated myocardial infarction (non-STEMI): (2) Chest pain: (3) History of smoking: (4) Obstructive sleep apnea: (5) Fibromyalgia: Plan She may be discharged today. She should go home on aspirin, Plavix, statin. I note she is on verapamil. She states she takes this for hypertension. I would change this over to metoprolol and discontinue the verapamil. I also note that she is on long-acting nitrate which she does not need anymore. She tells me she takes that for high blood pressure. She should see the nurse practitioner in the office in a week to 10 days for radial artery check and chemistry panel. Attestations Medical Necessity Statement*: May be discharged today. Coding Level of Care Code Acute Code for g Fwd Diagnoses Non-ST elevated myocardial infarction (non-STEMI) I21.4 Chest pain R07.9 History of smoking Z87.891 Obstructive sleep apnea G47.33 Fibromyalgia M79.7
[2022-12-26] MEDS: thyroid 60 mg Tablet PO (08:54)
[2022-12-26] MEDS: isosorbide mononitrate ER 30 mg Tablet PO (08:54)
[2022-12-26] MEDS: clopidogrel 75 mg Tablet PO (08:54)
[2022-12-26] MEDS: aspirin 81 mg EC Tablet PO (08:54)
--- NOTE | 2022-12-26 11:16 | P.DS_ITS ---
Discharge Providers Date of Admission: 12/25/22 01:49 Date of Discharge: December 26, 2022 Attending Provider at Admission: Brendan Sharif Attending Provider at Discharge: Kevin Sauer MD Primary Care Provider: ADRIEN Archer Diagnoses at Discharge Discharge Diagnosis (1) Non-ST elevated myocardial infarction (non-STEMI): Status: Acute (2) Chest pain: Status: Acute (3) History of smoking: Status: Chronic (4) Obstructive sleep apnea: Status: Chronic (5) Fibromyalgia: Status: Chronic Reason for Visit Reason for Visit: CHEST PAIN Hospital Course Hospital Course 67-year-old female who was admitted for management evaluation of unstable angina,, cardiology was consulted, underwent coronary angiogram 12/25 stent was placed mid circumflex, no complications after procedure. For hypertension she will get amlodipine 5 mg along with lisinopril 20 mg daily and metoprolol. We will discontinue verapamil. We will add dual antiplatelet therapy and high-dose statins. She will have close follow-up with cardiology clinic. Echo shows preserved ejection fraction with grade 1 diastolic dysfunction. Physical Exam Narrative: Awake and alert Pleasant and cooperative GCS 15 Abdomen soft Currently on room air S1, S2 Discharge Data Studies Completed and Pending Completed Studies During Hospitalization Category Date Time Status TIRE REPAIRER request for service Routine Exams 12/25/22 16:43 Completed XR chest 1V portable [id number] Stat Exams 12/24/22 21:45 Completed CV. echo complete* [id number] Routine Ultrasound 12/25/22 03:23 Completed Pending at discharge Category Date Time Status Basic Metabolic Panel AM LABS Lab 12/27/22 04:00 Ordered Basic Metabolic Panel AM LABS Lab 12/28/22 04:00 Ordered Complete Blood Count w/Auto AM LABS Lab 12/27/22 04:00 Ordered Complete Blood Count w/Auto AM LABS Lab 12/28/22 04:00 Ordered Radiology Impressions Chest X-Ray 12/24/22 21:45 IMPRESSION: No acute findings. Laboratory Results WBC 5.52 10^3/uL (3.29-11.43) 12/26/22 05:19 RBC 3.74 10^6/uL (3.85-5.65) L 12/26/22 05:19 Hgb 11.20 g/dL (11.27-16.99) L 12/26/22 05:19 Hct 35.2 % (36-47) L 12/26/22 05:19 MCV 94.1 fl (85-98) 12/26/22 05:19 MCH 29.9 pg (27-33) 12/26/22 05:19 MCHC 31.8 g/dL (30-55) 12/26/22 05:19 RDW 15.7 % (12.1-15.1) H 12/26/22 05:19 Plt Count 180 10^3/cmm (157-399) 12/26/22 05:19 MPV 9.4 fL (7.4-10.4) 12/26/22 05:19 Neut % (Auto) 53.6 % 12/26/22 05:19 Lymph % (Auto) 34.8 % 12/26/22 05:19 [place] % (Auto) 8.0 % 12/26/22 05:19 Eos % (Auto) 2.7 % 12/26/22 05:19 Baso % (Auto) 0.7 % 12/26/22 05:19 Neut # (Auto) 2.96 10^3/uL (1.8-7.7) 12/26/22 05:19 Lymph # (Auto) 1.9 10^3/uL (0.8-4.8) 12/26/22 05:19 [place] # (Auto) 0.4 10^3/uL (0.2-0.9) 12/26/22 05:19 Eos # (Auto) 0.2 10^3/uL (0.0-0.8) 12/26/22 05:19 Baso # (Auto) 0.0 10^3/uL (0.0-0.1) 12/26/22 05:19 Nucleated RBC % (auto) 0 % 12/26/22 05:19 Nucleated RBCs # 0.0 /100WBC 12/26/22 05:19 Sodium 142 mmol/L (136-145) 12/26/22 05:19 Potassium 3.7 mmol/L (3.5-5.1) 12/26/22 05:19 Chloride 108 mmol/L (98-107) H 12/26/22 05:19 Carbon Dioxide 26 mmol/L (22-29) 12/26/22 05:19 Anion Gap 11.7 (5-19) 12/26/22 05:19 BUN 9 mg/dL (8-23) 12/26/22 05:19 Creatinine 0.8 mg/dL (0.5-0.9) 12/26/22 05:19 GFR Calculation 71.3 mL/min (90-130) L 12/26/22 05:19 Glucose 102 mg/dL (65-115) 12/26/22 05:19 Calculated Osmolality 293 mOsm/kg (285-295) 12/26/22 05:19 Calcium 8.0 mg/dL (8.5-10.5) L 12/26/22 05:19 Total Bilirubin 0.2 mg/dL (0.15-1.2) 12/24/22 22:04 AST 16 U/L (0-32) 12/24/22 22:04 ALT 15 U/L (0-33) 12/24/22 22:04 Alkaline Phosphatase 87 U/L (35-105) 12/24/22 22:04 Creatine Kinase 56 U/L (26-192) 12/24/22 22:04 Troponin T Gen 5 ng/L 185 ng/L (0-10) H* 12/25/22 12:33 Troponin T Baseline 9 ng/L (0-10) 12/24/22 22:04 Troponin T 120 Minute 34.93 ng/L (0-10) H 12/24/22 23:53 Delta Troponin T 25.93 ABS# (0-10) H* 12/24/22 23:53 Troponin T Hi Sens 6Hr 142.5 ng/L (0-10) H 12/25/22 03:45 Troponin T Hi Sens 6Hr Delta 133.5 ng/L (0-12) H* 12/25/22 03:45 NT-Pro-B Natriuret Pep 198 pg/mL (0-125) H 12/24/22 22:04 Total Protein 6.5 g/dL (6.6-8.7) L 12/24/22 22:04 Albumin 4.3 g/dL (3.5-5.2) 12/24/22 22:04 Globulin 2.2 g/dL (1.3-4.6) 12/24/22 22:04 Vitals Last Vital Signs Temp 98.5 F 12/26/22 07:21 Pulse 77 12/26/22 07:21 Resp 14 12/26/22 07:21 BP 150/92 12/26/22 07:21 Pulse Ox 95 12/26/22 07:21 O2 Del Method Room Air 12/26/22 07:21 Discharge Plan Discharge Patient Disposition: Home Condition: Stable Prescriptions: New aspirin 81 mg Tablet,Delayed Release (Dr/Ec) 81 mg PO DAILY Qty: 90 3RF clopidogrel 75 mg Tablet 75 mg PO DAILY Qty: 90 3RF amlodipine 5 mg tablet 5 mg PO DAILY Qty: 30 0RF metoprolol tartrate 25 mg tablet 25 mg PO BID Qty: 60 3RF atorvastatin 40 mg Tablet 80 mg PO BEDTIME Qty: 90 3RF lisinopril 20 mg tablet 20 mg PO DAILY Qty: 120 3RF Continued thyroid (pork) [Clements Thyroid] 60 mg tablet 60 mg PO DAILY Qty: 30 0RF triamcinolone acetonide 0.1 % ointment 1 applic topical TID PRN (Reason: Itching) hydrocodone-acetaminophen 7.5-325 mg tablet 1 tab PO Q8H PRN (Reason: Pain, Moderate) diclofenac sodium [Arthritis Pain (diclofenac)] 1 % gel 2 g topical QID PRN (Reason: Pain) Rx Instructions: apply to single elbow, wrist or hand; for hand includes palm/fingers/back of hand isosorbide mononitrate 30 mg tablet extended release 24 hr 30 mg PO DAILY Qty: 90 1RF albuterol sulfate [ProAir HFA] 90 mcg/actuation HFA aerosol inhaler 2 puff INHALATION Q6H PRN (Reason: shortness of breath or wheezing) 30 Days Qty: 6.7 5RF quetiapine 200 mg tablet 400 mg PO .at bedtime Qty: 180 1RF duloxetine 30 mg capsule,delayed release(DR/EC) 30 mg PO BEDTIME Breyna 80-4.5 mcg/actuation HFA aerosol inhaler 2 puff INHALATION Q12H Discontinued verapamil 120 mg capsule,ext rel. pellets 24 hr 120 mg PO DAILY Discharge Orders: Discharge Order (Routine); Ordered 12/26/22 Ordered By: Kevin Sauer Referrals: Bonnie Amador, RECORD PRESS TENDER-C [Primary Care Provider] - 12/29/22 3:20 am Shruthi Figueroa FNP [Nurse Practitioner] - 01/02/23 8:45 am Discharge Diet: Cardiac Discharge Activity: Increase activity as tolerated Patient Instructions: Chest Pain (DC), Coronary Angioplasty (DC), Opioid Safety, Post Angiogram Home Care Instructions, Pain Management Activity Restrictions/Additional Instructions: For your blood pressure you will get metoprolol, amlodipine and lisinopril, in case her blood pressure is below 110/90 mmHg please do not take all 3 medications, you can continue lisinopril 20 mg daily if blood pressure stays around 110 to 130 mmHg systolic, Discharge Attestations Time Spent in Discharge Care*: greater than 30 min Quality Metrics Clinical Quality Measures [ No reported AMI, CVA or VTE this stay] Coding Level of Care Code Acute Code for g Fwd Diagnoses Non-ST elevated myocardial infarction (non-STEMI) I21.4 Chest pain R07.9 History of smoking Z87.891 Obstructive sleep apnea G47.33 Fibromyalgia M79.7
[2022-12-26] MEDS: albuterol 2.5 mg/3 mL Neb INHALATION (11:24)
--- NOTE | 2022-12-26 12:35 | PC.NURSE ---
Discharge Note Patient discharged to [home] via [w/c to POV] accompanied by [spouse]. Discharge instructions reviewed with patient and/or event representative. Mobile pharmacy medications and/or prescriptions provided. Belongings/home medications returned.
== END 2022-12-26 12:36 | disposition home or self-care (01) ==
LOC: ER 12-25 00:54 → CSU 12-25 02:18
PROVIDERS: Specialist; Admitting Provider Internal Medicine; Emergency Provider Emergency Medicine; PCP Nurse Practitioner; Visit Provider Internal Medicine
DX: I21.4 Non-ST elevation (NSTEMI) myocardial infarction (principal); R07.9 Chest pain, unspecified; Z87.891 Personal history of nicotine dependence; G47.33 Obstructive sleep apnea (adult) (pediatric); M79.7 Fibromyalgia; I10 Essential (primary) hypertension; E78.5 Hyperlipidemia, unspecified; E66.9 Obesity, unspecified; Z68.30 Body mass index [BMI] 30.0-30.9, adult
CPT/HCPCS: 36415; 71045; 80048; 80053; 82550; 83880; 84484; 85025; 93005; 93306; 93458; 94640; 96367; 96372; 96374; 96375; 96376; 99152; 99153; 99285; C1760; C1769; C1874; C1887; C1894; C9600; G0378; J0360; J1200; J1644; J1650; J1885; J2250; J2270; J2405; J3010; J3490; J7030; J7613; J7626; Q9967

== ENCOUNTER → 2023-01-02 16:27 | Outpatient (BNVA) | payer BC, MEDICARE, SELFPAY | PROVIDERS: PCP Nurse Practitioner; Visit Provider Nurse Practitioner Family | DX: I25.10 Atherosclerotic heart disease of native coronary artery without angina pectoris (principal) | CPT/HCPCS: 36415; 80048 ==

== ENCOUNTER 2023-01-31 15:08 | Outpatient (CLI) | payer BC, MEDICARE, SELFPAY ==
--- NOTE | 2023-01-31 15:00 | MM_ITS ---
WS: [id number] BILATERAL 3D TOMOSYNTHESIS DIGITAL SCREENING MAMMOGRAPHY WITH CAD CLINICAL INFORMATION: Z12.31 - Encounter for screening mammogram for malignant ... HISTORY: Screening mammogram. No current complaints. COMPARISON: 2017 TECHNIQUE: Bilateral CC and MLO views. FINDINGS: The breasts are composed of heterogeneous fibroglandular density tissue, which can limit the detectio n of small underlying mass lesions. No suspicious mass, asymmetry, calcifications, or architectural d istortion. No evidence of malignancy. Vascular calcification. Punctate and lucent centered calcificat ions. IMPRESSION: MM/[place] [id number] BI-RADS: 2-Benign FOLLOW UP: 1 Year Follow-up Recommend return to annual screening mammography.
== END 2023-01-31 15:09 | disposition home or self-care (01) ==
LOC: MOBLMAM 15:19
PROVIDERS: PCP Nurse Practitioner; Visit Provider Nurse Practitioner
DX: Z12.31 Encounter for screening mammogram for malignant neoplasm of breast (principal)
CPT/HCPCS: 77063; 77067

== ENCOUNTER 2023-05-01 15:53 | Outpatient (CLI) | payer BC, MEDICARE, SELFPAY ==
[2023-05-01 17:55] LABS: Thyroid Stimulating Hormone 0.25 uIU/mL (0.27-4.20)
[2023-05-01 21:37] LABS: Free T4 Free Thyroxine 1.07 ng/dL (0.82-1.77)
== END 2023-05-01 15:54 | disposition home or self-care (01) ==
LOC: LAB 15:59
PROVIDERS: PCP Nurse Practitioner; Visit Provider Internal Medicine
DX: E03.8 Other specified hypothyroidism (principal)
CPT/HCPCS: 36415; 84439; 84443

== ENCOUNTER 2023-05-11 15:08 | Outpatient (CLI) | payer BC, MEDICARE, SELFPAY ==
[2023-05-11 16:22] LABS: Free T4 Free Thyroxine 1.03 ng/dL (0.82-1.77); Thyroid Stimulating Hormone 0.66 uIU/mL (0.27-4.20)
== END 2023-05-11 15:09 | disposition home or self-care (01) ==
LOC: LAB 15:11
PROVIDERS: PCP Nurse Practitioner; Visit Provider Internal Medicine
DX: E03.8 Other specified hypothyroidism (principal)
CPT/HCPCS: 36415; 84439; 84443

== ENCOUNTER 2023-05-23 15:42 | Outpatient (CLI) | payer BC, MEDICARE, SELFPAY ==
[2023-05-23 21:00] LABS: Free T4 Free Thyroxine 1.12 ng/dL (0.82-1.77); Thyroid Stimulating Hormone 0.39 uIU/mL (0.27-4.20)
[2023-05-25 09:09] LABS: T3 Total 73 ng/dL (76-181)
== END 2023-05-23 15:43 | disposition home or self-care (01) ==
LOC: LAB 15:44
PROVIDERS: PCP Nurse Practitioner; Visit Provider Internal Medicine
DX: E03.8 Other specified hypothyroidism (principal)
CPT/HCPCS: 36415; 84439; 84443; 84480

== ENCOUNTER → 2023-05-29 13:51 | Outpatient (BNVA) | payer BC, MEDICARE, SELFPAY | PROVIDERS: PCP Nurse Practitioner; Visit Provider Nurse Practitioner | DX: E78.2 Mixed hyperlipidemia (principal); J45.20 Mild intermittent asthma, uncomplicated | CPT/HCPCS: 80053; 80061; 83721 ==

== ENCOUNTER → 2023-09-07 16:31 | Outpatient (BNVA) | payer BC, MEDICARE, SELFPAY | PROVIDERS: PCP Nurse Practitioner; Visit Provider Internal Medicine | DX: I10 Essential (primary) hypertension (principal); I25.10 Atherosclerotic heart disease of native coronary artery without angina pectoris; R79.89 Other specified abnormal findings of blood chemistry | CPT/HCPCS: 36415; 80048; 83880; 84439; 84443 ==

== ENCOUNTER 2023-10-03 12:07 | Outpatient (CLI) | payer MEDICARE, BC, SELFPAY ==
--- NOTE | 2023-10-03 12:00 | USCV_ITS ---
Simran Pendleton Age: 68 Gender: F : 1955 Exam Date: 10/03/2023 12:21 Ordering Phys: Rocky Canada M.D ([email or web address]) Technologist: [place] [facility] [place]: cp/sob BP: 144 / 78 HR: 53 Rhythm: Sinus Technical Quality: Adequate MEASUREMENTS (Male / Female) Normal Values 2D ECHO LVOT Diameter 2.0 cm LV Ejection Fraction MOD 4C 55.3 % LV Ejection Fraction MOD 2C 63.2 % LV Ejection Fraction 2C AL 63.5 % LA Diameter 3.7 cm RA Systolic Volume 4C AL 48.6 ml RA Systolic Volume 4C MOD 44.9 ml LA Sys Volume AL 66.4 cm cubed LA Sys Volume Index AL 32.6 cm cubed/m squared Aorta at Sinotubular Diameter 2.5 cm M-MODE LA Ao Ratio MM 1.3 AV Cusp Separation MM 2.0 cm DOPPLER AV Peak Velocity 105.0 cm/s LVOT Peak Velocity 93.0 cm/s AV Area Cont Eq vti 2.6 cm squared AV Area Cont Eq pk 2.8 cm squared MV Peak Velocity 92.0 cm/s MV Area PHT 3.7 cm squared Mitral E to A Ratio 0.8 TV Peak Velocity 178.0 cm/s TR Peak Velocity 232.0 cm/s TR Peak Gradient 21.5 mmHg TV Peak E Velocity 72.0 cm/s Right Atrial Pressure 3.0 mmHg Pulmonary Artery Systolic Pressu 24.5 mmHg PV Peak Velocity 84.5 cm/s FINDINGS Left Ventricle Left ventricle is normal in size. LV systolic function is normal with EF 55 to 60%. No regional wall motion abnormalities are seen. Grade 1 diastolic dysfunction Right Ventricle Normal in size and function Right Atrium Normal in size Left Atrium Dilated Mitral Valve Structurally normal mitral valve. Mild mitral regurgitation. Aortic Valve Structurally normal aortic valve. No significant stenosis. Trace aortic regurgitation. Tricuspid Valve Mild tricuspid regurgitation. Pulmonary artery systolic pressure is normal. Pulmonic Valve Not well visualized Pericardium Normal Aorta Normal in size IVC Appears to be normal CONCLUSIONS LV systolic function is normal with EF of 55-60% Grade 1 diastolic dysfunction Left atrial dilation Mild mitral regurgitation Mild tricuspid regurgitation Trace aortic regurgitation Rocky Canada MD (Electronically Signed) Final Date: 07 October 2023 12:05 S
== END 2023-10-03 12:08 | disposition home or self-care (01) ==
LOC: RAD 12:08
PROVIDERS: PCP Nurse Practitioner; Visit Provider Internal Medicine
DX: I50.30 Unspecified diastolic (congestive) heart failure (principal); I51.7 Cardiomegaly; R07.9 Chest pain, unspecified; R06.02 Shortness of breath
CPT/HCPCS: 93306

== ENCOUNTER → 2023-11-06 14:33 | Outpatient (BNVA) | payer BC, MEDICARE, SELFPAY | PROVIDERS: PCP Nurse Practitioner; Visit Provider Nurse Practitioner | DX: E03.8 Other specified hypothyroidism (principal); I25.10 Atherosclerotic heart disease of native coronary artery without angina pectoris | CPT/HCPCS: 80061; 83721; 84439; 84443; 84480 ==

== ENCOUNTER → 2024-03-07 10:22 | Outpatient (BNVA) | payer MEDICARE, SELFPAY | PROVIDERS: PCP Nurse Practitioner; Visit Provider Internal Medicine | DX: E03.8 Other specified hypothyroidism (principal); I25.10 Atherosclerotic heart disease of native coronary artery without angina pectoris; F51.04 Psychophysiologic insomnia; E78.49 Other hyperlipidemia | CPT/HCPCS: 36415; 80053; 80061; 84439; 84443; 84480; 99214 ==

== ENCOUNTER → 2024-03-11 10:32 | Outpatient (BNVA) | payer MEDICARE, SELFPAY | PROVIDERS: PCP Nurse Practitioner; Visit Provider Nurse Practitioner | DX: R05.9 Cough, unspecified (principal); R32 Unspecified urinary incontinence | CPT/HCPCS: 71046; 80061; 81000; 83721; 84439; 84443; 85025; 87400; 87426 ==

== ENCOUNTER 2024-05-31 09:50 | Outpatient (CLI) | payer MEDICARE, OTHER, SELFPAY ==
[2024-05-31 10:30] LABS: Estmated Average Glucose 111; Hemoglobin A1C 5.5 % (4.0-6.0)
[2024-05-31 10:41] LABS: Alanine Aminotransferase 15 U/L (0-33); Albumin Level 4.3 g/dL (3.5-5.2); Alkaline Phosphatase 81 U/L (35-105); Aspartate Amino Transferase 23 U/L (0-32); Blood Urea Nitrogen 14 mg/dL (8-23); Calcium 8.9 mg/dL (8.5-10.5); Carbon Dioxide 22 mmol/L (22-29); Chloride 105 mmol/L (98-107); Cholesterol 235 mg/dL (0-200); Globulin 2.6 g/dL (1.3-4.6); Glomerular Filtration Rate 82.7 mL/min (90-130); Glucose 109 mg/dL (65-115); HDL Cholesterol 50 mg/dL (60-100); LDL Cholesterol Calculated 112 mg/dL (50-129); Osmolality Calculated 295 mOsm/kg (285-295); Sodium 142 mmol/L (136-145); Total Bilirubin 0.3 mg/dL (0.15-1.2); Total Protein 6.9 g/dL (6.6-8.7); Triglycerides 367 mg/dL (0-150); VLDL Cholestrol Calculation 73 mg/dL (0-30)
[2024-05-31 10:43] LABS: Anion Gap 18.7 (5-19); Potassium 3.7 mmol/L (3.5-5.1)
== END 2024-05-31 09:51 | disposition home or self-care (01) ==
LOC: LAB 09:51
PROVIDERS: PCP Nurse Practitioner; Visit Provider Nurse Practitioner
DX: R73.03 Prediabetes (principal); E78.2 Mixed hyperlipidemia
CPT/HCPCS: 36415; 80053; 80061; 83036

== ENCOUNTER 2024-06-04 15:08 | Outpatient (CLI) | payer MEDICARE, OTHER, SELFPAY ==
--- NOTE | 2024-06-04 15:00 | USCV_ITS ---
Simran Pendleton Age: 69 Gender: F : 1955 Exam Date: 06/04/2024 15:16 Ordering Phys: Rocky Canada M.D ([email or web address]) Technologist: HERO Exam Location: [facility] [place] Indication: HTN BP: 140 / 84 HR: 70 Rhythm: Sinus Technical Quality: Adequate MEASUREMENTS (Male / Female) Normal Values 2D ECHO LV Diastolic Diameter PLAX 5.3 cm 4.2 - 5.9 / 3.9 - 5.3 cm IVS Diastolic Thickness 0.9 cm 0.6 - 1.0 / 0.6 - 0.9 cm IVS Systolic Thickness 1.6 cm LVPW Diastolic Thickness 0.9 cm 0.6 - 1.0 / 0.6 - 0.9 cm LVPW Systolic Thickness 1.0 cm LVOT Diameter 2.0 cm LV Ejection Fraction 2D Teich 69.3 % LV Ejection Fraction MOD 4C 64.3 % LV Ejection Fraction MOD 2C 68.6 % LV Ejection Fraction 2C AL 72.3 % LA Diameter 3.5 cm RA Systolic Volume 4C AL 22.6 ml RA Systolic Volume 4C MOD 21.8 ml LA Sys Volume AL 23.5 cm cubed LA Sys Volume Index AL 11.4 cm cubed/m squared Aorta at Sinotubular Diameter 3.0 cm M-MODE LA Ao Ratio MM 1.1 AV Cusp Separation MM 1.6 cm DOPPLER AV Peak Velocity 139.0 cm/s LVOT Peak Velocity 103.0 cm/s AV Area Cont Eq vti 2.7 cm squared AV Area Cont Eq pk 2.3 cm squared MV Peak Velocity 95.0 cm/s MV Area PHT 3.6 cm squared Mitral E to A Ratio 0.9 TR Peak Velocity 88.0 cm/s TR Peak Gradient 3.1 mmHg TV Peak E Velocity 69.0 cm/s PV Peak Velocity 82.0 cm/s FINDINGS Left Ventricle Technically limited quality echocardiogram because of poor ultrasonic windows. LV systolic function is grossly normal. Right Ventricle Grossly normal Right Atrium Normal in size Left Atrium Normal in size Mitral Valve Grossly normal. Trace mitral regurgitation. Aortic Valve Not well-visualized. No significant stenosis or regurgitation. Tricuspid Valve Insufficient TR jet to calculate RVPS Pulmonic Valve Not well visualized Pericardium Normal Aorta Normal in size IVC Not well visualized CONCLUSIONS Technically limited quality echocardiogram because of poor ultrasonic windows. LV systolic function is grossly normal. Trace mitral regurgitation. Rocky Canada MD (Electronically Signed) Final Date: 16 Jun 2024 15:03 S
== END 2024-06-04 15:09 | disposition home or self-care (01) ==
LOC: RAD 15:08
PROVIDERS: PCP Nurse Practitioner; Visit Provider Internal Medicine
DX: I10 Essential (primary) hypertension (principal)
CPT/HCPCS: 93306

== ENCOUNTER 2024-08-28 16:36 | Outpatient (CLI) | payer MEDICARE, OTHER, SELFPAY ==
--- NOTE | 2024-08-28 16:26 | MR_ITS ---
WS: [id number] MRI LUMBAR SPINE NONCONTRAST HISTORY: RADICULOPATHY COMPARISON: 11/06/2018 TECHNIQUE: Sagittal and axial multisequence imaging is submitted. Mild straightening of the normal cervical lordosis. C4 anterolisthesis by 2 mm. L2 and L3 retrolisthesis. Most significant retrolisthesis at L3 by 4.6 mm. Small amount of reactive marrow edema along the endplates of L3 and L4. No compression fractures. Mild disc space narrowing and desiccation. Conus terminates normally at L1-2 disc level. L1-L2: Mild bilateral facet arthritis and LEFT foraminal stenosis similar to the prior study. Asymmetric facet joint arthropathy, greater on the LEFT. L2-L3: Diffuse annular disc bulging, osteophytic ridging and mild facet arthritis. Mild narrowing of the subarticular recesses and mild bilateral foraminal stenosis. No change. L3-L4: Marked annular disc bulging with ligamentum flavum and facet arthritis. Progression of central stenosis since the prior study. Complete effacement of ventral CSF. There is disc contacting the traversing L4 nerve roots in the subarticular recesses. Moderate central, bilateral subarticular recess and moderate to severe bilateral foraminal stenosis. There is additional disc contact on the exiting L3 nerve roots. L4-L5: Diffuse annular disc bulging with mild ligamentum flavum and facet arthritis. Mild disc contact on the traversing L5 nerve roots. Mild central, bilateral subarticular recess and moderate foraminal stenosis. Additional contact on the exiting L4 nerve roots. L5-S1: Mild annular disc bulging with mild facet and ligamentum flavum hypertrophy. Moderate LEFT and mild RIGHT foraminal stenosis. Greater disc osteophyte contact on the LEFT exiting L5 nerve root. Minimal effacement of ventral CSF. Paravertebral soft tissues are negative. MR/MR lumbar spine wo con* [id number] IMPRESSION: 1. Mild retrolisthesis of L2 and L3. 2. No acute compression fractures. 3. L3-4: Progression of stenosis since the prior examination. There is now mod erate central, bilateral subarticular recess with moderate to severe foraminal stenosis. There is contact on both the L3 and L4 nerve roots by disc and osteop hyte disease. 4. L4-5: Mild central, bilateral subarticular recess and moderate foraminal st enosis. Contact on the exiting L4 nerve roots. 5. L5-S1: Moderate LEFT and mild RIGHT foraminal stenosis. Mild progression si nce the prior study. 6. L2-3: Mild subarticular recess and foraminal stenosis. No change.
== END 2024-08-28 16:37 | disposition home or self-care (01) ==
LOC: RAD 16:37
PROVIDERS: PCP Nurse Practitioner
DX: M54.17 Radiculopathy, lumbosacral region (principal); M47.817 Spondylosis without myelopathy or radiculopathy, lumbosacral region; G89.4 Chronic pain syndrome; M54.2 Cervicalgia; Z79.891 Long term (current) use of opiate analgesic; M43.16 Spondylolisthesis, lumbar region; M48.062 Spinal stenosis, lumbar region with neurogenic claudication; M25.78 Osteophyte, vertebrae; M99.63 Osseous and subluxation stenosis of intervertebral foramina of lumbar region; M54.16 Radiculopathy, lumbar region; M48.07 Spinal stenosis, lumbosacral region
CPT/HCPCS: 72148

== ENCOUNTER 2024-09-01 20:05 | Emergency (ER) | payer MEDICARE, OTHER, SELFPAY ==
--- OUTSIDE RECORDS SUMMARY | 2024-07-22 06:30 | XMS_ITS ---
Author Organization [facility] Address [address] [place] [address] Care Team Providers Care Aerodynamic Consultant Name Role Phone William Treviño Primary Care Provider Kwadwo Bales [phone] REASON FOR VISIT Screening Recall Encounters Encounter Location Date Provider Diagnosis [facility] [address] [place] [address] 07/22/2024 Kwdawo Bales Essential hypertension I10 and Family history of colon cancer in mother Z80.0 Assessments Encounter Date Diagnosis (ICD Code) Assessment Notes Treatment Notes Treatment Clinical Notes Section Notes 07/22/2024 Essential hypertension (ICD-10 - I10) 07/22/2024 Family history of colon cancer in mother (ICD-10 - Z80.0) Plan Of Treatment Next Appt Details Provider Name:Nina shepherd, 09/10/2024 03:00:00 PM, [address] [place], [address], Progress Notes * TOSIN PENDLETONANNAB:1955 ( 69 yo F)Acc No.[id number]:07/22/2024 Progress Notes Patient: MARLINE TOLLIVER Provider: Raheem Bales APRN QUITLINE COUNSELOR-BC :1955 A ge:69 Y S ex:Female Date:07/22/2024 Address:[address] [place] [phone] Pcp:William Treviño Subjective: * Chief Complaints: * S creening Recall Assessment: * Assessment: 1. E ssential hypertension - I10 (Primary) 2 . F amily history of colon cancer in mother - Z80.0 Billing Information: * Visit Code: 03201 Office Visit, Est Pt., Level 4. * Procedure Codes: Care Plan Details* * Electronic signature of FLAKITA Ortega on 09/01/2024 at 08:16 PM CDT Sign off status: Pending * Provider: Raheem Bales APRN QUITLINE COUNSELOR-BC Date: 0 07/22/2024 Generated for Therese navarro/Scott/Willa on: 0 09/01/2024 08:16 PM CDT
--- OUTSIDE RECORDS SUMMARY | 2024-07-31 10:15 | XMS_ITS ---
Author Organization [facility] Address [address] [place] [address] Care Team Providers Care Cancer Program Coordinator Name Role Phone William Treviño Primary Care Provider Kwadwo Bales Unavailable [phone] Nina Ordoñez Unavailable [phone] REASON FOR VISIT Screening Recall Encounters Encounter Location Date Provider Diagnosis [facility] [address] [place] [address] 07/31/2024 Nina Ordoñez Plan Of Treatment Next Appt Details Provider Name:Nina shepherd, 09/10/2024 03:00:00 PM, [address] [place], [address], Progress Notes * TOSIN PENDLETONANNAB:1955 ( 69 yo F)Acc No.[id number]:07/31/2024 Progress Notes Patient: MARLINE TOLLIVER Provider: Jorge Luis Ordoñez APRN :1955 A ge:69 Y S ex:Female Date:07/31/2024 Address:[address] [place], [place] [phone] Pcp:William Treviño Subjective: * Chief Complaints: * S creening Recall Billing Information: * Procedure Codes: Care Plan Details* * Electronic signature of Gerardo Fierro APRN on 09/01/2024 at 08:15 PM CDT Sign off status: Pending * Provider: Jorge Luis Ordoñez APRN Date: 0 07/31/2024 Generated for Therese navarro/Scott/Estuardoitting on: 0 09/01/2024 08:15 PM CDT
--- OUTSIDE RECORDS SUMMARY | 2024-08-27 08:00 | XMS_ITS ---
Author Organization [facility] Address [address] [place] [address] Care Team Providers Care Event Security Officer Name Role Phone William Treviño Primary Care Provider Kwadwo Bales Unavailable [phone] Nina Ordoñez Unavailable [phone] REASON FOR VISIT Screening Recall Medications Medication SIG (Take, Route, Frequency, Duration) Notes Start Date End Date Status Amlodipine *Reorder from [facility] for eRx and Interaction Alerts* Active Ambien *Pick strength-form from [facility] for eRX* Active Garlic *Pick strength-form from [facility] for eRX* Active Vitamin D3 *Pick strength-form from [facility] for eRX* Active Probiotic *Pick strength-form from [facility] for eRX* Active Hydrocodone Bitartrate 30 MG Capsule ER 12 Hour Abuse-Deterrent as directed Orally Active HYDROcodone-Acetamin ophen 7.5-325 MG Tablet 1 tablet as needed Orally every 6 hrs Active Synthroid 112 MCG Tablet 1 tablet in the morning on an empty stomach Orally Once a day Active QUEtiapine Fumarate 25 MG Tablet 2 tablet at bedtime Orally Once a day Active Losartan Potassium 50 MG Tablet 1 tablet Orally Once a day; Duration: 30 day(s) 09/07/2022 Active Nitroglycerin 0.3 MG Tablet Sublingual as directed Sublingual as needed Active MiraLax 17 GM/SCOOP Powder 1 scoop mixed with 8 ounces of fluid Orally Once a day Active Isosorbide Mononitrate 10 MG Tablet 1 tablet Orally Twice a day Active Hydrocil 95 % Packet 1 packet with 8 ounces of liquid as needed Orally Once a day Not-Taking Encounters Encounter Location Date Provider Diagnosis [facility] [address] [place] [address] 08/27/2024 Nina Ordoñez Plan Of Treatment Next Appt Details Provider Name:Nina shepherd, 09/10/2024 03:00:00 PM, [address], [place], [address], Progress Notes * CLAUDE PENDLETONB:1955 ( 69 yo F)Acc No.[id number]:08/27/2024 Progress Notes Patient: MARLINE TOLLIVER Provider: Jorge Luis Ordoñez APRN :1955 A ge:69 Y S ex:Female Date:08/27/2024 Address:[address] [place], [place] [phone] Pcp:William Treviño Subjective: * Chief Complaints: * S creening Recall * Medications: T Martina , Notes to Pharmacist: *[facility] for [facility]*Amlodipine , Notes to Pharmacist: *Reorder from [facility] for eRx and Interaction Alerts*Garlic , Notes to Pharmacist: *[facility]*Hydrocodone Bitartrate 30 MG Capsule ER 12 Hour Abuse-Deterrent as directed Orally HYDROcodone-Acetaminophen 7.5-325 MG Tablet 1 tablet as needed Orally every 6 hrs Isosorbide Mononitrate 10 MG Tablet 1 tablet Orally Twice a day Losartan Potassium 50 MG Tablet 1 tablet Orally Once a day MiraLax 17 GM/SCOOP Powder 1 scoop mixed with 8 ounces of fluid Orally Once a day Nitroglycerin 0.3 MG Tablet Sublingual as directed Sublingual as needed Probiotic , Notes to Pharmacist: *[facility]*QUEtiapine Fumarate 25 MG Tablet 2 tablet at bedtime Orally Once a day Synthroid 112 MCG Tablet 1 tablet in the morning on an empty stomach Orally Once a day Vitamin D3 , Notes to Pharmacist: *[facility]*Taking Ambien , Notes to Pharmacist: *[facility]*Taking Amlodipine , Notes to Pharmacist: *Reorder from [facility] for eRx and Interaction Alerts*Taking Garlic , Notes to Pharmacist: *Pick strength-form from [facility] for eRX*Taking Hydrocodone Bitartrate 30 MG Capsule ER 12 Hour Abuse-Deterrent as directed Orally Taking HYDROcodone-Acetaminophen 7.5-325 MG Tablet 1 tablet as needed Orally every 6 hrs Taking Isosorbide Mononitrate 10 MG Tablet 1 tablet Orally Twice a day Taking Losartan Potassium 50 MG Tablet 1 tablet Orally Once a day Taking MiraLax 17 GM/SCOOP Powder 1 scoop mixed with 8 ounces of fluid Orally Once a day Taking Nitroglycerin 0.3 MG Tablet Sublingual as directed Sublingual as needed Taking Probiotic , Notes to Pharmacist: *Pick strength-form from [facility] for eRX*Taking QUEtiapine Fumarate 25 MG Tablet 2 tablet at bedtime Orally Once a day Taking Synthroid 112 MCG Tablet 1 tablet in the morning on an empty stomach Orally Once a day Taking Vitamin D3 , Notes to Pharmacist: *Pick strength-form from [facility] for eRX*Not-TakingHydrocil 95 % Packet 1 packet with 8 ounces of liquid as needed Orally Once a day Not-Taking Hydrocil 95 % Packet 1 packet with 8 ounces of liquid as needed Orally Once a day Billing Information: * Procedure Codes: Care Plan Details* * Electronic signature of Gerardo Fierro APRN on 09/01/2024 at 08:17 PM CDT Sign off status: Pending * Provider: Jorge Luis Ordoñez APRN Date: 08/27/2024 Generated for Therese navarro/Scott/Willa on: 09/01/2024 08:17 PM CDT
[2024-09-01 20:07] VITALS: BP 157/75; PULSE 62; RESP 16; TEMP 36.7; O2SAT 96; BMI 33.3
--- NOTE | 2024-09-01 20:14 | ECG_ITS ---
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 Measurements Intervals [place] Rate: 55 P: 35 WI: 151 QRS: 17 QRSD: 82 T: -58 QT: 432 QTc: 415 Interpretive Statements SINUS BRADYCARDIA WITH MARKED SINUS ARRHYTHMIA LOW QRS VOLTAGE IN PRECORDIAL LEADS [QRS DEFLECTION < 1.0 mV IN CHEST LEADS] ST DEVIATION AND MODERATE T-WAVE ABNORMALITY, CONSIDER ANTEROLATERAL ISCHEMIA [-0.1+ mV T-WAVE IN V3-V6] Diffuse nonspecific T wave changes Compared to ECG 12/25/2022 10:12:08 Low QRS voltage now present Sinus rhythm no longer present T-wave abnormality still present Possible ischemia still present Electronically Signed On 09-02-2024 17:04:18 CDT by Hansel Alfaro M.D. [email or web address]
--- OUTSIDE RECORDS SUMMARY | 2024-09-01 20:16 | XMS_ITS | Patient Health Record ---
Author Organization [facility] Address [address] [place] [address] Care Team Providers Care Director Of Accounts Payable Name Role Phone William Treviño Primary Care Provider Kwadwo Bales Unavailable [phone] Migration, Provider Unavailable Unavailable Nina Ordoñez Unavailable [phone] Allergies Allergen (clinical drug ingredient) Drug/Non Drug Allergy documented on EMR Reaction Allergy Type Onset Date Status Substance with sulfonamide structure and antibacterial mechanism of action (substance) SULFA (SULFONAMIDE ANTIBIOTICS) (uncoded) Itch Allergy Active venlafaxine Effexor XR Itch, Rash Drug Allergy Act isma metronidazole Flagyl Itch, Rash Drug Allergy Ac tive escitalopram Escitalopram Unknown Drug Allergy A ctive Latex Latex Unknown Allergy Active Penicillin Unknown Drug Allergy Active Substance with sulfonamide structure and antibacterial mechanism of action (substance) Sulfa Antibiotics Unknown Drug Allergy Active tramadol Tramadol Unknown Drug Allergy Active tramadol Tramadol , Drug Allergy Active Reason For Referral No Information Medications Medication SIG (Take, Route, Frequency, Duration) Notes Start Date End Date Status Nitroglycerin 0.3 MG Tablet Sublingual as directed Sublingual as needed Active Amlodipine *Reorder from [facility] for eRx and Interaction Alerts* Active Hydrocodone Bitartrate 30 MG Capsule ER 12 Hour Abuse-Deterrent as directed Orally Active HYDROcodone-Acetamin ophen 7.5-325 MG Tablet 1 tablet as needed Orally every 6 hrs Active Synthroid 112 MCG Tablet 1 tablet in the morning on an empty stomach Orally Once a day Active QUEtiapine Fumarate 25 MG Tablet 2 tablet at bedtime Orally Once a day Active MiraLax 17 GM/SCOOP Powder 1 scoop mixed with 8 ounces of fluid Orally Once a day Active Ambien *Pick strength-form from [facility] for eRX* Active Garlic *Pick strength-form from [facility] for eRX* Active Vitamin D3 *[facility]* Active Losartan Potassium 50 MG Tablet 1 tablet Orally Once a day; Duration: 30 day(s) 09/07/2022 Active Isosorbide Mononitrate 10 MG Tablet 1 tablet Orally Twice a day Active Hydrocil 95 % Packet 1 packet with 8 ounces of liquid as needed Orally Once a day Not-Taking Probiotic *Pick strength-form from [facility] for eRX* Active Immunizations Vaccine Route Administration Date Status Comme nts Influenza (whole), CPT 16892 Inactive Unknown 02/13/2011 Administered Influenza (whole), CPT 24169 Inactive Unknown 03/06/2018 Administered Social History Tobacco Use: Social History Observation Description Date Details (start date - stop date) Former Smoker NA - NA Social History Drugs/Alcohol: Social Info Question Answer Notes Alcohol Screen (Audit-C) Did you have a drink containing alcohol in the past year? No Points 0 Interpretation Negative Drugs Have you used drugs other than those for medical reasons in the past 12 months? No Caffeine Intake: 1-2 cups per day Coffee, Tea Tobacco Use: Social Info Question Answer Notes xTobacco Use/Smoking Are you a former smoker Are you a former smoker How long has it been since you last smoked? > 10 years How long has it been since you last smoked? > 10 years Additional Details Category Social Info Options Details Drugs/Alcohol: Do you smoke marijuana? De nies Do you drink alcohol? No Migrated Social History Migrated Social History Alcoholic beverages? - No, Are you or is there a chance you could be - No, Currently on disability? - No, Drug or substance abuse? - No, Involved in any legal proceedings or lawsuits? - No, Marital Status - , Nonprescription drug use? - No, Participation in detoxification or rehabilitation - No, Smoking - No, Smoking status (MU) - Never smoker, Working currently? - No zzMigrated Social History Migrated Social History Smoking Status:Tobacco smoking consumption unknown (finding) Problems Problem Type SNOMED Code ICD Code Onset Dates Problem Status W/U Status Risk Notes Problem Fibromyalgia (161547946) Fibromyalgia (M79.7) Active confirmed Problem Epigastric pain (49700726) Epigastric pain (R10.13) Active confirmed Problem Irritable bowel syndrome characterized by constipation (606037603) Irritable bowel syndrome with constipation (K58.1) Active confirmed Problem Drug-induced constipation (83762975) Drug induced constipation (K59.03) Active confirmed Problem Essential hypertension (57034848) Essential hypertension (I10) Active confirmed Problem Anxiety (03910306) Anxiety (F41.9) Active confirmed Problem Family History of Cancer of Colon (Situation) (934105153) Family history of colon cancer (Z80.0) Active confirmed Problem Hypothyroidism (44042254) Hypothyroidism (acquired) (E03.9) Active confirmed Problem History of urinary tract infection (5340327569787) History of UTI (Z87.440) Active confirmed Problem Disorder of urinary bladder (43988487) Bladder wall thickening (N32.89) Active confirmed Problem Renal cyst (264107151) Bilateral renal cysts (N28.1) Active confirmed Problem Bladder mass (362788021) Bladder mass (N32.89) Active confirmed Problem Chronic depression (787472992) Chronic depression (F32.A) Active confirmed Problem Primary osteoarthritis (020734918) Primary osteoarthritis involving multiple joints (M15.9) Active confirmed Encounters Encounter Location Date Provider Diagnosis Migrated_Facility 0 0 12/09/2023 Provider Migration Migrated_Facility 0 0 12/10/2023 Provider Migration Plan Of Treatment Next Appt Details Provider Name:Nina Sirena shepherd, 09/10/2024 03:00:00 PM, [address] [place], [address], Insurance Providers Payer Name Payer Address Payer Phone Subscriber Number Group Number Insured Name Patient Relationship to Insured Coverage Start Date Coverage End Date [place] [address] [place] [phone] [id number] MARLINE PENDLETON Self - patient is the insured [employer] Supplemental Benefits [address] [place] [phone] will bring cards MARLINE PENDLETON Self - patient is the insured Medical (General) History Medical History History ICD Code both legs crushed and reconstructed Problem:Anxiety (finding) , Status :: Ac tive undefined Problem:Chronic depression (disorder) , Status :: Active Problem:Diverticular disease (disorder) , Status :: Active Problem:Fibromyalgia (disorder) , Status :: Active Problem:History of - Deep Ve in Thrombosis (context-dependent category) , Status :: Active Problem:Hyperlipidemia (disorder) , Stat us :: Active Problem:Hypertensive disorde r, systemic arterial (disorder) , Status :: Active Problem:Hypothyroidism (disorder) , Stat us :: Active Problem:Irritable colon (disorder) , Sta tus :: Active Problem:Osteoarthritis (disorder) , Stat us :: Active Problem:Sleep apnea (finding) , Status : : Active Surgical History Surgery Date(Month/Year) hysterectomy thyroidectomy, complete hysterectomy thyroidectomy left knee replacement legs both knees replaced right knee replacement Knee replacement surgery Leg surgery Hospitalization History Reason Date(Month/Year) [facility] For abdominal pain and vomit ing 10/2022
--- OUTSIDE RECORDS SUMMARY | 2024-09-01 20:16 | XMS_ITS | Encounter Summary ---
Author Organization [employer] [facility] Address [address] [place] [address] Care Team Providers Care Equipment Operator [employer] Name Role Phone Bonnie Amador NP Primary Care Provider [phone] Encounter Details Date Type Department Care Team (Late st Contact Info) Description 02/04/2008 Outpatient Historical [facility] John Peck (Arthur)MD [address] [place] [address] Thoracic or Lumbosacral Neuritis or Radiculitis, Unspecified Social History Tobacco Use Types Packs/Day Years Used Date Smoking Tobacco: Former Cigarettes Q uit: 02/13/1979 Alcohol Use Standard Drinks/Week Comments No 0 (1 standard drink = 0.6 oz pur e alcohol) Comments No Sex and Gender Information Value Date Recorded Sex Assigned at Not on file Legal Sex Female 3:29 AM [employer] PRODUCT DEVELOPMENT MANAGER Gender Identity Not on file Sexual Orientation Not on file documented as of this encounter Plan of Treatment Not on file documented as of this encounter Visit Diagnoses Diagnosis Thoracic or lumbosacral neuritis or radiculitis, unspecified documented in this encounter Care Teams Equipment Operator [employer] Relationship Specialty Start Date End Date Bonnie Amador NP [address] [place] [phone] PCP - General NURSE PRACTITIONER 04/24/17 documented as of this encounter
--- OUTSIDE RECORDS SUMMARY | 2024-09-01 20:16 | XMS_ITS | Encounter Summary ---
Author Organization [email or web address] Address [address] [place] [address] Care Team Providers Care Form Raiser Name Role Phone Bonnie Amador EXECUTIVE ADVISOR Primary Care Provider [phone] Encounter Details Date Type Department Care Team (Late st Contact Info) Description 01/24/2008 Emergency [facility] Er, Authorized P NO ADDRESS ON FILE Sudhakar Dickey MD [facility] [place] [address] Social History Tobacco Use Types Packs/Day Years Used Date Smoking Tobacco: Former Cigarettes Q uit: 02/13/1979 Alcohol Use Standard Drinks/Week Comments No 0 (1 standard drink = 0.6 oz pur e alcohol) Comments No Sex and Gender Information Value Date Recorded Sex Assigned at Not on file Legal Sex Female 3:29 AM BUSINESS PLANNING DIRECTOR Gender Identity Not on file Sexual Orientation Not on file documented as of this encounter Plan of Treatment Not on file documented as of this encounter Procedures Procedure Name Priority Date/Time Associated Diagnosis Comments XR CHEST PA AND LATERAL 2 VW Stat 01/24/2008 7:05 PM BUSINESS PLANNING DIRECTOR TROPONIN (W/REFLEX CKMB/CK) Stat 01/24/2008 6:36 PM BUSINESS PLANNING DIRECTOR CBC WITH DIFFERENTIAL Stat 01/24/2008 6:36 PM BUSINESS PLANNING DIRECTOR TSH Stat 01/24/2008 6:36 PM BUSINESS PLANNING DIRECTOR COMPREHENSIVE METABOLIC PANEL Stat 01/24/2008 6:36 PM BUSINESS PLANNING DIRECTOR documented in this encounter Results * XR CHEST PA AND LATERAL (01/24/2008 7:05 PM BUSINESS PLANNING DIRECTOR) Anatomical Region Laterality Modality Chest Other 01/24/2008 7:05 PM BUSINESS PLANNING DIRECTOR Narrative 01/24/2008 7:27 PM BUSINESS PLANNING DIRECTOR [address] [address] Admit Date: 01/24/2008 SIMRAN PENDLETON Sex: F Admit Prov: ER, AUTHORIZED P Date: 1955 Primary Care Prov: FERDINAND REGAN CMRN: [id number] [id number] IM[facility] Ordering Prov: N/A Accession Number: [id number] Interpretation Exam: Chest x-ray PA and lateral. History: A chest pain. The heart, mediastinum and great vessels are within normal limits. Lungs are clear. The bony thorax is intact. Impression: Negative chest.. . Dictated by: GREG QUEEN 01/24/2008 19:25 Electronically signed by: GREG QUEEN 01/24/2008 19:25 Procedure Note Greg Queen - 01/24/[address] [address] Admit Date: 01/24/2008 DEVANTOSIN LORAA Can Sex: F Admit Prov: ER, AUTHORIZED P Date: 1955 Primary Care Prov: FERDINAND REGAN ABDUL CMRN: [id number] [facility] SS[facility] [id number] IMAGING SERVICES Ordering Prov: N/A Interpretation Exam: Chest x-ray PA and lateral. History: A chest pain. The heart, mediastinum and great vessels are within normal limits.Lungs are clear. The bony thorax is intact. Impression: Negative chest.. . Dictated by: GREG QUEEN 01/24/2008 19:25 Electronically signed by: GREG QUEEN 01/24/2008 19:25 us Sudhakar Dickey MD DIAGNOSTIC IMAGING ORDERABLES Fi nal Result * (ABNORMAL) COMPREHENSIVE METABOLIC PANEL (01/24/2008 6:36 PM BUSINESS PLANNING DIRECTOR) CREATININE 0.65 0.51 - 0.95 mg/dL [facility] SODIUM 140 135 - 145 mmol/L [facility] ALT 40(H) 0 - 31 U/L [facility] ALKALINE PHOSPHATASE 115(H) 35 - 104 U/L [facility] BILIRUBIN TOTAL 0.3 0.2 - 1.0 mg/dL [facility] CO2 25 22 - 30 mmol/L [facility] TOTAL PROTEIN 7.3 6.3 - 8.6 g/dL [facility] POTASSIUM 4.0 3.5 - 4.9 mmol/L [facility] GLUCOSE 120(H) 65 - 99 mg/dL [facility] AST 33(H) 12 - 32 U/L [facility] BUN 11 6 - 20 mg/dL [facility] CALCIUM 9.2 8.6 - 10.2 mg/dL [facility] CHLORIDE 105 96 - 108 mmol/L [facility] ALBUMIN 4.5 3.4 - 4.8 g/dL [facility] GFR, >60 >=60 mL/min/1. 7 sq meter [facility] GFR >60 >=60 mL/min/1. 7 sq meter [facility] Comment: Modification of Diet in Renal Disease (MDRD) study formula. Estimated GFR rate interpretative information for both Americans and non- Americans is available on the [facility] Intranet at: [email or web address] Select: Lab Policies and Procedures Select: Reference Ranges - GFR Blood specimen (specimen) 01/24/2008 6:36 PM BUSINESS PLANNING DIRECTOR 01/24/2008 6:45 PM BUSINESS PLANNING DIRECTOR Sudhakar Dickey MD CHEMISTRY ORDERABLES Edited Performing Organization Address [facility] Phone Number INTERFACE SYSTEM Refer to clinic/hospital department [facility] CLIA# [id number] [address] [place] [address] * TROPONIN (W/REFLEX CKMB/CK) (01/24/2008 6:36 PM BUSINESS PLANNING DIRECTOR) Pathologist [facility] TROPONIN T <0.01 <=0.03 ng/mL [facility] TROPONIN T INTERP Negative [facility] Blood specimen (specimen) 01/24/2008 6:36 PM BUSINESS PLANNING DIRECTOR 01/24/2008 6:45 PM BUSINESS PLANNING DIRECTOR Sudhakar Dickey MD CHEMISTRY ORDERABLES Edited Performing Organization Address [facility] de Phone Number INTERFACE SYSTEM Refer to clinic/hospital department [facility] CLIA# [id number] [address] [place] [address] * CBC WITH DIFFERENTIAL (01/24/2008 6:36 PM BUSINESS PLANNING DIRECTOR) Pathologist [facility] MCV 88.4 82.0 - 99.0 fL [facility] PLATELETS 253 140 - 350 K/uL [facility] HEMOGLOBIN 13.7 11.8 - 14.8 g/dL [facility] RDW 13.2 11.5 - 14.5 % [facility] WBC 5.4 4.0 - 9.8 K/uL [facility] MCH 30.1 27.2 - 32.6 pg [facility] MPV 10.4 9.3 - 12.4 fL [facility] HEMATOCRIT 40.2 35.5 - 44.0 % [facility] RDW-STDEV 42.6 37.1 - 48.7 fL [facility] RBC 4.55 3.90 - 4.90 M/uL [facility] MCHC 34.1 31.5 - 35.5 % [facility] LYMPHOCYTE ABSOLUTE 2.39 0.70 - 4.50 K/uL [facility] BASOPHILS 0 0 - 2 % [facility] BASOPHILS ABSOLUTE 0.02 0.00 - 0.20 K/uL [facility] MONOCYTES 7 3 - 13 % [facility] MONOCYTE ABSOLUTE 0.37 0.10 - 1.30 K/uL [facility] NEUTROPHILS 46 45 - 70 % [facility] NEUTROPHIL ABSOLUTE 2.50 1.90 - 7.00 K/uL [facility] EOSINOPHILS 3 0 - 7 % [facility] EOSINOPHIL ABSOLUTE 0.15 0.00 - 0.70 K/uL [facility] LYMPHOCYTES 44 16 - 45 % [facility] Blood specimen (specimen) 01/24/2008 6:36 PM BUSINESS PLANNING DIRECTOR 01/24/2008 6:45 PM BUSINESS PLANNING DIRECTOR us Sudhakar Dickey MD HEMATOLOGY ORDERABLES Edited INTERFACE SYSTEM Refer to clinic/hospital department [facility] CLIA# [id number] [address] [place] [address] * TSH (01/24/2008 6:36 PM BUSINESS PLANNING DIRECTOR) TSH 0.39 0.27 - 4.20 uU/mL [facility] Blood specimen (specimen) 01/24/2008 6:36 PM BUSINESS PLANNING DIRECTOR 01/24/2008 6:45 PM BUSINESS PLANNING DIRECTOR Sudhakar Dickey MD CHEMISTRY ORDERABLES Final Resul t INTERFACE SYSTEM Refer to clinic/hospital department [facility] CLIA# [id number] [address] [place] [address] documented in this encounter Visit Diagnoses Not on filedocumented in this encounter Care Teams Form Raiser Relationship Specialty Start Date End Date Bonnie Amador, KIM [address] [place] [phone] PCP - General NURSE PRACTITIONER 04/24/17 documented as of this encounter
--- OUTSIDE RECORDS SUMMARY | 2024-09-01 20:16 | XMS_ITS | Encounter Summary ---
Author Organization [employer] [facility] Address [address] [place] [address] Care Team Providers Care Foreign Car Mechanic Name Role Phone Bonnie Amador ACUTE SPECIALIST Primary Care Provider [phone]- [phone] Encounter Details Date Type Department Care Team (Late st Contact Info) Description 01/09/2008 Emergency [facility] Er, Authorized P NO ADDRESS ON FILE William Florez MD NO ADDRESS ON FILE Social History Tobacco Use Types Packs/Day Years Used Date Smoking Tobacco: Former Cigarettes Q uit: 02/13/1979 Alcohol Use Standard Drinks/Week Comments No 0 (1 standard drink = 0.6 oz pur e alcohol) Comments No Sex and Gender Information Value Date Recorded Sex Assigned at Not on file Legal Sex Female 3:29 AM TENNIS RACKET REPAIRER Gender Identity Not on file Sexual Orientation Not on file documented as of this encounter Plan of Treatment Not on file documented as of this encounter Procedures Procedure Name Priority Date/Time Associated Diagnosis Comments CBC WITH DIFFERENTIAL Stat 01/09/2008 6:05 PM TENNIS RACKET REPAIRER XR CHEST PA AND LATERAL 2 VW Routine 01/09/2008 6:05 PM TENNIS RACKET REPAIRER D-DIMER Stat 01/09/2008 6:05 PM TENNIS RACKET REPAIRER COMPREHENSIVE METABOLIC PANEL Stat 01/09/2008 6:05 PM TENNIS RACKET REPAIRER documented in this encounter Results * D-DIMER (01/09/2008 6:05 PM TENNIS RACKET REPAIRER) D-DIMER QUANT 0.30 <=0.42 ug/mL [facility] Comment: DVT Screen reference range <0.45 ug/mL FEU D. Dimer Interpretation: The reference range is not clearly established in uncomplicated pregnancies. Values above the upper limit of the reference range are common from the 31st to 40th week of . High negative predictive values for DVT have been reported with the current methodology, as part of a comprehensive medical examination, including risk stratification. Blood specimen (specimen) 01/09/2008 6:05 PM TENNIS RACKET REPAIRER 01/09/2008 6:18 PM TENNIS RACKET REPAIRER us William Florez MD HEMATOLOGY ORDERABLES F inal Result INTERFACE SYSTEM Refer to clinic/hospital department [facility] CLIA# [id number] [address] [place], [place] [address] * (ABNORMAL) COMPREHENSIVE METABOLIC PANEL (01/09/2008 6:05 PM TENNIS RACKET REPAIRER) CALCIUM 9.4 8.6 - 10.2 mg/dL [facility] ALBUMIN 4.8 3.4 - 4.8 g/dL [facility] CHLORIDE 101 96 - 108 mmol/L [facility] CREATININE 0.67 0.51 - 0.95 mg/dL [facility] ALT 30 0 - 31 U/L [facility] SODIUM 139 135 - 145 mmol/L [facility] ALKALINE PHOSPHATASE 112(H) 35 - 104 U/L [facility] CO2 25 22 - 30 mmol/L [facility] BILIRUBIN TOTAL 0.3 0.2 - 1.0 mg/dL [facility] POTASSIUM 3.7 3.5 - 4.9 mmol/L [facility] TOTAL PROTEIN 7.6 6.3 - 8.6 g/dL [facility] GLUCOSE 110(H) 65 - 99 mg/dL [facility] AST 29 12 - 32 U/L [facility] BUN 14 6 - 20 mg/dL [facility] GFR, >60 >=60 mL/min/1. 7 sq meter [facility] GFR >60 >=60 mL/min/1. 7 sq meter [facility] Comment: Modification of Diet in Renal Disease (MDRD) study formula. Estimated GFR rate interpretative information for both Americans and non- Americans is available on the [facility] Intranet at: [email or web address] Select: Lab Policies and Procedures Select: Reference Ranges - GFR Blood specimen (specimen) 01/09/2008 6:05 PM TENNIS RACKET REPAIRER 01/09/2008 6:18 PM TENNIS RACKET REPAIRER William Florez MD CHEMISTRY ORDERABLES Ed ited INTERFACE SYSTEM Refer to clinic/hospital department [facility] CLIA# [id number] [address] [facility] [place] [address] * CBC WITH DIFFERENTIAL (01/09/2008 6:05 PM TENNIS RACKET REPAIRER) WBC 6.4 4.0 - 9.8 K/uL [facility] MCH 30.1 27.2 - 32.6 pg [facility] MPV 10.9 9.3 - 12.4 fL [facility] HEMATOCRIT 40.9 35.5 - 44.0 % [facility] RDW-STDEV 43.6 37.1 - 48.7 fL [facility] RBC 4.65 3.90 - 4.90 M/uL [facility] MCHC 34.2 31.5 - 35.5 % [facility] MCV 88.0 82.0 - 99.0 fL [facility] PLATELETS 202 140 - 350 K/uL [facility] HEMOGLOBIN 14.0 11.8 - 14.8 g/dL [facility] RDW 13.7 11.5 - 14.5 % [facility] NEUTROPHIL ABSOLUTE 3.29 1.90 - 7.00 K/uL [facility] EOSINOPHILS 2 0 - 7 % [facility] EOSINOPHIL ABSOLUTE 0.14 0.00 - 0.70 K/uL [facility] LYMPHOCYTES 38 16 - 45 % [facility] LYMPHOCYTE ABSOLUTE 2.43 0.70 - 4.50 K/uL [facility] BASOPHILS 0 0 - 2 % [facility] BASOPHILS ABSOLUTE 0.02 0.00 - 0.20 K/uL [facility] MONOCYTES 8 3 - 13 % [facility] MONOCYTE ABSOLUTE 0.53 0.10 - 1.30 K/uL [facility] NEUTROPHILS 51 45 - 70 % [facility] Blood specimen (specimen) 01/09/2008 6:05 PM TENNIS RACKET REPAIRER 01/09/2008 6:18 PM TENNIS RACKET REPAIRER us William Florez MD HEMATOLOGY ORDERABLES E dited Performing Organization Address City/State/[facility] Co de Phone Number INTERFACE SYSTEM Refer to clinic/hospital department [facility] CLIA# [id number] [address] [place] [address] * XR CHEST PA AND LATERAL (01/09/2008 6:05 PM TENNIS RACKET REPAIRER) Anatomical Region Laterality Modality Chest Other 01/09/2008 6:05 PM TENNIS RACKET REPAIRER Narrative 01/09/2008 6:19 PM TENNIS RACKET REPAIRER [facility] [address] [place] [address] Admit Date: 01/09/2008 SIMRAN PENDLETON Sex: F Admit Prov: ER, AUTHORIZED P Date: 1955 Primary Care Prov: FERDINAND REGAN CMRN: [id number] [id number] IM[facility]ING [facility] Ordering Prov: N/A Accession Number: [id number] Interpretation Exam: Chest x-ray PA and lateral. History: Chest pressure. The heart, mediastinum and great vessels are within normal limits. Lungs are clear. The bony thorax is intact. Impression: Negative chest.. . Dictated by: RAN QUEEN 01/09/2008 18:17 Electronically signed by: RAN QUEEN 01/09/2008 18:17 Procedure Note Ran Queen - 01/09/[address] [address] Admit Date: 01/09/2008 DEVAN SIMRAN G Sex: F Admit Prov: ER, AUTHORIZED P Date: 1955 Primary Care Prov: FERDINAND REGAN CMRN: [id number] [facility]: [facility]: [address] [place] [address] IMAGING SERVICES Ordering Prov: N/A Interpretation Exam: Chest x-ray PA and lateral. History: Chest pressure. The heart, mediastinum and great vessels are within normal limits.Lungs are clear. The bony thorax is intact. Impression: Negative chest.. . Dictated by: RAN QUEEN 01/09/2008 18:17 Electronically signed by: RAN QUEEN 01/09/2008 18:17 Wililam Florez MD DIAGNOSTIC IMAGING VERITO CARRANZA Final Result documented in this encounter Visit Diagnoses Not on filedocumented in this encounter Care Teams Foreign Car Mechanic Relationship Specialty Start Date End Date Bonnie Amador NP [address] [place] [phone] PCP - General NURSE PRACTITIONER 04/24/17 documented as of this encounter
--- OUTSIDE RECORDS SUMMARY | 2024-09-01 20:16 | XMS_ITS | Clinical Summary ---
Author Organization [facility] Address [address] [place] [address] Care Team Providers Care Supervisor Electric Motor Testing Name Role Phone Bonnie Amador APPRENTICE PAINTER HAND Primary Care Provider [phone] Allergies Active Allergy Reactions Criticality Noted Date Comments Escitalopram Nausea and Vomiting Low 11/15/2007 Penicillins Rash Low 10/09/2016 Sulfa (Sulfonamide Antibiotics) Rash Low 03/2007 Tramadol Anaphylaxis High 10/09/2016 Medications AMBIEN 10 mg Oral Tab Take 10 mg by mouth nightly as needed for Insomnia. Active NORVASC 10 mg Oral Tab Take 10 mg by mouth daily. Active LEVOTHYROXINE 112 mcg Oral Tab Take 112 mcg by mouth daily. Active ESTROGENS CONJ-MEPROBAMAT E 200 mg Oral Tab Take by mouth. Activ e PREMARIN 0.625 mg/g Vaginal Crea Insert 0.5 Gram vaginally daily at bedtime. Active LORAZEPAM 1 mg Oral Tab Take 1 mg by mouth every 6 hours as needed. Active CLONAZEPAM 2 mg Oral Tab Take 2 mg by mouth daily. Active LORTAB 7.5 7.5-500 mg Oral Tab Take 1 Tab by mouth every 4 hours as needed for Pain. Active NEURONTIN 100 mg Oral Cap Take 100 mg by mouth 1 time daily as needed. Active metoprolol tartrate (LOPRESSOR) 50 mg tablet Take 50 mg by mouth daily. Active HYDROcodone-marita taminophen (NORCO) 10-325 mg Tablet Take 1 Tablet by mouth every 4 hours as needed. Active Active Problems Problem Noted Date Diagnosed Date IBS (irritable bowel syndrome) 11/18/2007 Abdominal pain, other specified site 11/18/2007 Hypertension 11/18/2007 Hypothyroidism 11/18/2007 Anxiety state 11/18/2007 Fibromyalgia syndrome 11/18/2007 Arthralgia 11/18/2007 Family History Medical History Relation Name Comments Hypertension Father Stroke Father brain stem stro ke. Cancer Mother colon cancer. Healthy Son psoriasis, sarc oidosis. Relation Name Status Comments Brother 1 Alive Brother 2 Alive Father Mother Alive Sister 1 Alive Sister 2 Alive Son Alive Social History Tobacco Use Types Packs/Day Years Used Date Smoking Tobacco: Never Smokeless Tobacco: Never Alcohol Use Standard Drinks/Week Comments No 0 (1 standard drink = 0.6 oz pur e alcohol) Comments No Sex and Gender Information Value Date Recorded Sex Assigned at Not on file Legal Sex Female 3:29 AM TECHNICAL PUBLICATIONS MANAGER Gender Identity Not on file Sexual Orientation Not on file Last Filed Vital Signs Vital Sign Reading Time Taken Comments Blood Pressure 152/74 04/24/2017 9:25 PM CDT Pulse 78 11/15/2007 4:28 PM CDT Temperature 36.8 C (98.2 F) 04/24/2017 9:25 PM CDT Respiratory Rate 16 04/24/2017 9:25 PM CDT Oxygen Saturation - - Inhaled Oxygen Concentration - - Weight 81.6 kg (180 lb) 04/24/2017 4:35 PM CDT Height 165.1 cm (5' 5 ) 04/24/2017 4:35 PM CDT Body Mass Index 29.95 04/24/2017 4:35 PM CDT Plan of Treatment Health Maintenance Due Date Last Done Comments DTAP/TDAP/TD VACCINES (1 - Tdap) 1973 FIT-DNA Q 3 years 1999 FIT/FOBT Q 1 year 1999 Flex Sig/CT Colonography Q 5 years 1999 PNEUMOCOCCAL VACCINE 50+ YEARS (1 of 1 - PCV) 04/03/19 05 ZOSTER VACCINE (1 of 2) 2004 BREAST CANCER SCREENING 07/15/2008 07/16/2007 OSTEOPOROSIS SCREENING 11/14/2008 11/14/2006 Pre-Diabetes and Diabetes Screening 11/29/201011/29 COLORECTAL SCREENING 11/15/2015 11/14/2005 Colorectal Cancer Screening 11/15/2015 INFLUENZA VACCINE (#1) 2024 RSV VACCINE (60+ or ) (1 - 1-dose 75+ series) 2029 Procedures Procedure Name Priority Date/Time Associated Diagnosis Comments HEMOGLOBIN A1C Routine 11/30/2007 5:04 PM CDT from Last 3 Months or Most Recently Relevant to Health Maintenance Results * HEMOGLOBIN A1C (11/30/2007 5:04 PM CDT) HEMOGLOBIN A1C 5.8 4.1 - 6.1 % of Hgb [facility] GLUCOSE, MEAN BLOOD 129 mg/dL [facility] Blood specimen (specimen) 11/30/2007 5:04 PM CDT 11/30/2007 9:03 PM CDT Adelaide Jaramillo MD CHEMISTRY ORDERABLES Fin al Result INTERFACE SYSTEM Refer to clinic/hospital department [facility] CLIA# [id number] [address] [place] [address] from Last 3 Months or Most Recently Relevant to Health Maintenance Insurance [facility] BLUE ACCESS/TRUE BLUE PPO Care Teams Supervisor Electric Motor Testing Relationship Specialty Start Date End Date Bonnie Amador NP [address] [place] [phone] PCP - General NURSE PRACTITIONER 04/24/17
--- OUTSIDE RECORDS SUMMARY | 2024-09-01 20:16 | XMS_ITS | Encounter Summary ---
Author Organization [facility] Address [address] [place] [address] Care Team Providers Care Social Work Manager Name Role Phone Bonnie Amador TAKE UP SUPERVISOR Primary Care Provider [phone] Encounter Details Date Type Department Care Team (Late st Contact Info) Description 02/20/2008 Outpatient Historical [facility] John Peck (Tad), [address] [place] [phone] Unspecified Backache Social History Tobacco Use Types Packs/Day Years Used Date Smoking Tobacco: Former Cigarettes Q uit: 02/13/1979 Alcohol Use Standard Drinks/Week Comments No 0 (1 standard drink = 0.6 oz pur e alcohol) Comments No Sex and Gender Information Value Date Recorded Sex Assigned at Not on file Legal Sex Female 3:29 AM TRAVEL CONSULTANT Gender Identity Not on file Sexual Orientation Not on file documented as of this encounter Plan of Treatment Not on file documented as of this encounter Visit Diagnoses Diagnosis Backache, unspecified documented in this encounter Care Teams Social Work Manager Relationship Specialty Start Date End Date Bonnie Amador NP [address] [place] [phone] PCP - General NURSE PRACTITIONER 04/24/17 documented as of this encounter
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
--- OUTSIDE RECORDS SUMMARY | 2024-09-01 20:16 | XMS_ITS | Encounter Summary ---
Author Organization [facility] Address [address] [place] [address] Care Team Providers Care Technical Operations Specialist Name Role Phone Bonnie Amador CARROTER Primary Care Provider [phone] Encounter Details Date Type Department Care Team (Late st Contact Info) Description 01/03/2008 Outpatient Historical [facility] John Peck (Tad), [address] [place] [id number] Thoracic or Lumbosacral Neuritis or Radiculitis, Unspecified Social History Tobacco Use Types Packs/Day Years Used Date Smoking Tobacco: Former Cigarettes Q uit: 02/13/1979 Alcohol Use Standard Drinks/Week Comments No 0 (1 standard drink = 0.6 oz pur e alcohol) Comments No Sex and Gender Information Value Date Recorded Sex Assigned at Not on file Legal Sex Female 3:29 AM INTERNET MANAGER Gender Identity Not on file Sexual Orientation Not on file documented as of this encounter Plan of Treatment Not on file documented as of this encounter Procedures Procedure Name Priority Date/Time Associated Diagnosis Comments XR CERVICAL SPINE 4 OR 5 VIEWS Routine 01/03/2008 3:08 PM INTERNET MANAGER documented in this encounter Results * XR CERVICAL SPINE MIN 4+ VW (01/03/2008 3:08 PM INTERNET MANAGER) Anatomical Region Laterality Modality Spine Other 01/03/2008 3:08 PM INTERNET MANAGER Narrative 01/03/2008 5:04 PM INTERNET MANAGER [facility] [address] [place], [place] [address] Admit Date: 01/03/2008 SIMRAN PENDLETON Sex: F Admit Prov: JOHN PECK Date: 1955 Primary Care Prov: FERDINAND REGAN CMRN: [id number] [facility] [address] [place] [address] IMAGING SERVICES Ordering Prov: N/A Accession Number: [id number] Interpretation EXAMINATION: CERVICAL SPINE, 5 VIEWS, 01/03/08 Clinical History: Neck pain. Findings: Examination of the cervical spine fails to demonstrate evidence of fracture or dislocation. Anterior projecting osteophyte is present in the inferior C6 endplate. There is facet sclerosis at the left C5-C6 facet. Impression: Mild degenerative changes within the cervical spine. . Dictated by: Raheem LINO 01/03/2008 16:52 Electronically signed by: Raheem LINO 01/03/2008 17:03 Transcribed: 01/03/2008 16:59 LE Procedure Note Juancarlos Lino MD - 01/03/[address] [place], [place] [address] Admit Date: 01/03/2008 SIMRAN PENDLETON Sex: F Admit Prov: JOHN PECK Date: 1955 Primary Care Prov: FERDINAND REGAN CMRN: [id number] [facility] [id number] IMAGING SERVICES Ordering Prov: N/A Interpretation EXAMINATION: CERVICAL SPINE, 5 VIEWS, 01/03/08 Clinical History: Neck pain. Findings: Examination of the cervical spine fails to demonstrateevidence of fracture or dislocation. Anterior projecting osteophyte is presentin the inferior C6 endplate. There is facet sclerosis at the left C5-U8qymvp. Impression: Mild degenerative changes within the cervical spine. . Dictated by: Raheem LINO 01/03/2008 16:52 Electronically signed by: Raheem LINO 01/03/2008 17:03 Transcribed: 01/03/2008 16:59 LE us John North (Tad) [facility] ORDERAB LES Final Result documented in this encounter Visit Diagnoses Diagnosis Thoracic or lumbosacral neuritis or radiculitis, unspecified documented in this encounter Care Teams Technical Operations Specialist Relationship Specialty Start Date End Date Bonnie Amador, CARROTER [address] [place] [phone] PCP - General NURSE PRACTITIONER 04/24/17 documented as of this encounter
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
--- OUTSIDE RECORDS SUMMARY | 2024-09-01 20:16 | XMS_ITS | Encounter Summary ---
Author Organization [employer] [facility] Address [address] [place] [address] Care Team Providers Care Senior Electronics Design Engineer Name Role Phone Bonnie Amador PASSENGER CAR CONDUCTOR Primary Care Provider [phone] Encounter Details Date Type Department Care Team (Late st Contact Info) Description 01/04/2008 Outpatient Historical [facility] Adelaide Jaramillo MD [address] [place] [phone] Functional Diarrhea Social History Tobacco Use Types Packs/Day Years Used Date Smoking Tobacco: Former Cigarettes Q uit: 02/13/1979 Alcohol Use Standard Drinks/Week Comments No 0 (1 standard drink = 0.6 oz pur e alcohol) Comments No Sex and Gender Information Value Date Recorded Sex Assigned at Not on file Legal Sex Female 3:29 AM PRODUCT FINISHER Gender Identity Not on file Sexual Orientation Not on file documented as of this encounter Plan of Treatment Not on file documented as of this encounter Procedures Procedure Name Priority Date/Time Associated Diagnosis Comments STOOL CULTURE (LA,SHIG,CAMPY,ECO1 57) Routine 01/04/2008 10:57 AM PRODUCT FINISHER C. DIFFICILE DETECTION Routine 01/04/2008 10:57 AM PRODUCT FINISHER FECAL LEUKOCYTES STAIN Routine 01/04/2008 10:57 AM PRODUCT FINISHER OVA AND PARASITE SCREEN Routine 01/04/2008 10:57 AM PRODUCT FINISHER documented in this encounter Results * CLOSTRIDIUM DIFFICILE TOXIN (01/04/2008 10:57 AM PRODUCT FINISHER) FINAL REPORT NO Clostridium difficile Toxin A or B detected by EIA. A negative result does not rule out C. difficile associated diarrhea or colitis. [facility] Stool specimen (specimen) 01/04/2008 10:57 AM PRODUCT FINISHER 01/04/2008 3:00 PM PRODUCT FINISHER Adelaide Jaramillo MD MICROBIOLOGY - GENERAL O RDERABLES Final Result Performing Organization Address [facility] de Phone Number INTERFACE SYSTEM Refer to clinic/hospital department [facility] CLIA# [id number] [address] [place] [address] * OVA AND PARASITE SCREEN (01/04/2008 10:57 AM PRODUCT FINISHER) PRELIMINARY REPORT Pending [facility] FINAL REPORT Concentration : No ova or parasites seen. Trichrome: No ova or parasites seen. [facility] Stool specimen (specimen) 01/04/2008 10:57 AM PRODUCT FINISHER 01/04/2008 3:00 PM PRODUCT FINISHER Narrative INTERFACE SYSTEM - 01/07/2008 3:37 PM PRODUCT FINISHER Performed by [facility] [address] Performed by [facility] [address] Adelaide Jaramillo MD MICROBIOLOGY - GENERAL O RDERABLES Final Result Performing Organization Address City/[facility] Co de Phone Number INTERFACE SYSTEM Refer to clinic/hospital department [facility] CLIA# [id number] [address] [place] [address] * FECAL LEUKOCYTES STAIN (01/04/2008 10:57 AM PRODUCT FINISHER) FINAL REPORT No WBC's seen. [facility] Stool specimen (specimen) 01/04/2008 10:57 AM PRODUCT FINISHER 01/04/2008 3:00 PM PRODUCT FINISHER Adelaide Jaramillo MD MICROBIOLOGY - GENERAL O RDERABLES Final Result Performing Organization Address [facility] Phone Number INTERFACE SYSTEM Refer to clinic/hospital department [facility] CLIA# [id number] [address] [place] [address] * STOOL CULTURE (LA,SHIG,CAMPY,XHU373) (01/04/2008 10:57 AM PRODUCT FINISHER) PRELIMINARY REPORT No Salmonella isolated. No Shigella isolated. No Escherichia coli serogroup O157:H7 isolated. [facility] FINAL REPORT No Salmonella isolated. No Shigella isolated. No Escherichia coli serogroup O157:H7 isolated. No Camplylobacter isolated. [facility] Stool specimen (specimen) 01/04/2008 10:57 AM PRODUCT FINISHER 01/04/2008 3:00 PM PRODUCT FINISHER Adelaide Jaramlilo MD MICROBIOLOGY - GENERAL O RDERABLES Final Result Performing Organization Address [facility] Phone Number INTERFACE SYSTEM Refer to clinic/hospital department [facility] CLIA# [id number] [address] [place] [address] documented in this encounter Visit Diagnoses Diagnosis Functional diarrhea documented in this encounter Care Teams Senior Electronics Design Engineer Relationship Specialty Start Date End Date Bonnie Amador NP [address] [place] [phone] PCP - General NURSE PRACTITIONER 04/24/17 documented as of this encounter
--- OUTSIDE RECORDS SUMMARY | 2024-09-01 20:16 | XMS_ITS | Patient Health Record ---
Author Organization [facility] Address [address] [place] [address] Care Team Providers Care Veterinary Manager Name Role Phone Bonnie Amador APRN Primary Care Provider Leonor GEOVANNA Reed Unavailable [phone] Allergies Allergen (clinical drug ingredient) Drug/Non Drug Allergy documented on EMR Reaction Allergy Type Onset Date Status nitrofurantoin, macrocrystals / nitrofurantoin, monohydrate Macrobid Unknown Drug Allergy Active escitalopram Escitalopram Unknown Drug Allergy A ctive Latex Latex Unknown Allergy Active Penicillin Unknown Drug Allergy Active Substance with sulfonamide structure and antibacterial mechanism of action (substance) Sulfa Antibiotics Unknown Drug Allergy Active tramadol Tramadol , Drug Allergy Active Results Component Value Reference Range Notes Gx - Recurrent Persistent Co mplicated UTI Reviewed date:05/06/2024 02:20:55 PM Interpretation: Performing Lab:, [id number] Notes/Report: PatientName: : Gender: PatientRelation: PatientAddress: , , , InsuranceName: InsuranceCode: Test Result: Guidance, Voided Urine, UTI Surgical, Test Result: PATHOGENIC DNA DETECTED#A*F UTIAbnormalFlag: Guidance, Voided Urine, UTI Surgical, UTIAbnormalFlag: A CLIENT EDUCATION TRACKING Reviewed date:11/22/2023 02:26:57 PM Interpretation: Performing Lab:Russ BARRERA-[id number] Morteza Mitchell, [id number] Petey Inman MD Notes/Report: FASTING: NO CLIENT EDUCATION TRACKING The Requisition we received did not include a Meetup account number. To prevent delays in testing and processing of your orders please provide the following information with every order submitted: [facility] account number and account name Client address Client phone and fax number NPI number of ordering physician along with the physician name. Urinalysis, Routine Reviewed date:11/20/2023 03:55:04 PM Interpretation: Performing Lab: Notes/Report: Urine-Color dk yellow Appearance sl cloudy Glucose - Bilirubin - Ketones - Specific Towanda 1.020 Occult Blood - pH 6.0 Urine Protein - Urobilinogen,Semi-Qn - Nitrite, Urine - WBC Esterase - CULTURE, URINE, ROUTINE (395 ) Reviewed date:11/23/2023 09:33:00 AM Interpretation: Performing Lab:Russ BARRERA-[id number] Morteza Mitchell, [id number] Petey Inman MD Notes/Report: FASTING: NO CULTURE, URINE, ROUTINE SEE NOTE CULTURE, URINE, ROUTINE Micro Number: [id number] Test Status: Final Specimen Source: Not given Specimen Quality: Adequate Result: Less than 10,000 CFU/mL of single Gram positive organism isolated. No further testing will be performed. If clinically indicated, recollection using a method to minimize contamination, with prompt transfer to Urine Culture Transport Tube, is recommended. NO COLLECTION DATE RECEIVED. WE HAVE USED THE DATE THE SPECIMEN WAS RECEIVED BY THIS LABORATORY THE COLLECTION DATE. IF THIS IS INCORRECT, PLEASE CONTACT CLIENT SERVICES. PHONE NUMBER: [phone] Urinalysis, Routine Reviewed date:10/30/2023 03:27:49 PM Interpretation: Performing Lab: Notes/Report: Urine-Color yellow Appearance clear Glucose - Bilirubin - Ketones - Specific Towanda 1.010 Occult Blood - pH 6.0 Urine Protein - Urobilinogen,Semi-Qn - Nitrite, Urine - WBC Esterase 1+ CULTURE, URINE, ROUTINE (395 ) Reviewed date:11/02/2023 05:15:09 PM Interpretation: Performing Lab:Russ BARRERA-[id number] Morteza Mitchell, [id number] Petey Inman MD Notes/Report: FASTING: NO CULTURE, URINE, ROUTINE SEE NOTE CULTURE, URINE, ROUTINE Micro Number: [id number] Test Status: Final Specimen Source: Not given Specimen Quality: Adequate CEFEPIME S <=0.12 CEFTAZIDIME S <=1 CEFTRIAXONE S <=0.25 CIPROFLOXACIN I 0.5 GENTAMICIN S <=1 IMIPENEM S <=0.25 LEVOFLOXACIN I 1 MEROPENEM S <=0.25 NITROFURANTOIN S 32 PIP/TAZOBACTAM S <=4 TRIMETHOPRIM/SULFA S <=20 S = Susceptible I = Intermediate R = Resistant NS = Not susceptible SDD = Susceptible Dose Dependent * = Not Tested NR = Not Reported NN = See Therapy Comments THERAPY COMMENTS Note 1: For infections other than uncomplicated UTI caused by E. coli, K. pneumoniae or P. mirabilis: Cefazolin is resistant if LONNY > or = 8 mcg/mL. (Distinguishing susceptible versus intermediate for isolates with LONNY < or = 4 mcg/mL requires additional testing.) Note 2: For uncomplicated UTI caused by E. coli, K. pneumoniae or P. mirabilis: Cefazolin is susceptible if LONNY <32 mcg/mL and predicts susceptible to the oral agents cefaclor, cefdinir, cefpodoxime, cefprozil, cefuroxime, cephalexin and loracarbef. NO COLLECTION DATE RECEIVED. WE HAVE USED THE DATE THE SPECIMEN WAS RECEIVED BY THIS LABORATORY THE COLLECTION DATE. IF THIS IS INCORRECT, PLEASE CONTACT CLIENT SERVICES. PHONE NUMBER: [phone] Result: 50,000-100,000 CFU/mL of Escherichia coli E.coli INT LONNY AMOX/CLAVULANATE S 4 AMP/SULBACTAM I 16 CEFAZOLIN NR <=4 2 Urinalysis, Routine Reviewed date:12/26/2023 02:51:31 PM Interpretation: Performing Lab: Notes/Report: Urine-Color willis Appearance clear Glucose - Bilirubin - Ketones - Specific Towanda 1.025 Occult Blood - pH 6.0 Urine Protein - Urobilinogen,Semi-Qn - Nitrite, Urine - WBC Esterase - Urinalysis Gross Exam - CLIENT EDUCATION TRACKING Reviewed date:11/02/2023 09:42:06 AM Interpretation: Performing Lab:Russ BARRERA-[id number] Morteza Mitchell, [id number] Petey Inman MD Notes/Report: FASTING: NO CLIENT EDUCATION TRACKING The Requisition we received did not include a Meetup account number. To prevent delays in testing and processing of your orders please provide the following information with every order submitted: [facility] account number and account name Client address Client phone and fax number NPI number of ordering physician along with the physician name. Urinalysis, Routine Reviewed date:05/03/2024 09:53:31 AM Interpretation: Performing Lab: Notes/Report: Urine-Color yellow Appearance clear Glucose - Bilirubin - Ketones - Specific Towanda 1.025 Occult Blood +- pH 6.0 Urine Protein - Urobilinogen,Semi-Qn - Nitrite, Urine - WBC Esterase - Reason For Referral Reason Referral to OPH for pelvic pressure after hysterectomy, possible prolapse Diagnosis 1 S/P hysterectomy (Z9 0.710) Diagnosis 2 Pelvic pressure in f emale (R10.2) Referral Organization [facility] Referring Provider First Name GEOVANNA Referring Provider Last Name ANAM [facility] Provider [facility]erred Provider Specialty [facility] Referral Priority Routine Medications Medication SIG (Take, Route, Frequency, Duration) Notes Start Date End Date Status Lisinopril Not-Takin g Thompson Thyroid Not-T aking Aspir-81 Active oxyBUTYnin Chloride ER 10 MG 1 tablet Orally Once a day Not-Taking Myrbetriq 50 mg TAKE ONE TABLET BY MOUTH DAILY for 30 Active Plavix Active Hydrocil 95 % 1 packet with 8 ounces of liquid as needed Orally Once a day Not-Taking Repatha 140 MG/ML 1 mL Subcutaneous Active Atorvastatin Calcium Not-Taking Entresto Active Hydrocodone Bitartrate 30 MG as directed Orally *Pick strength-form from [employer] for eRX* Not-Taking QUEtiapine Fumarate 25 MG 2 tablet at bedtime Orally Once a day Active Nitroglycerin 0.3 MG as directed Sublingual as needed Active HYDROcodone-Acetamin ophen 7.5-325 MG 1 tablet as needed Orally every 6 hrs Active Isosorbide Mononitrate 10 MG 1 tablet Orally Twice a day Not-Taking Losartan Potassium 50 MG 1 tablet Orally Once a day for 30 day(s) 09/07/2022 Active Synthroid 112 MCG 1 tablet in the morning on an empty stomach Orally Once a day Not-Taking Estradiol 0.1 MG/GM 1g (pea sized amount) Vaginal 3x per week at bedime x 8 weeks, then weekly for maintenance for 90 days 12/26/2023 Active Immunizations Vaccine Route Administration Date Status Comme nts Influenza (whole), CPT 89917 Inactive Unknown 02/13/2011 Administered Influenza (whole), CPT 02987 Inactive Unknown 03/06/2018 Administered Social History Tobacco Use: Social History Observation Description Date Details (start date - stop date) Never Smoker NA - NA Tobacco Use/Smoking Question Answer Notes Tobacco use: nonsmoker Problems Problem Type SNOMED Code ICD Code Onset Dates Problem Status W/U Status Risk Notes Problem Overactive bladder (560377953) Overactive bladder (N32.81) Active confirmed Problem 763789215528012 Drug induced constipation (K59.03) Active confirmed Problem 750331439 Family history of colon cancer (Z80.0) Active confirmed Problem History of hysterectomy (720890553) S/P hysterectomy (Z90.710) Active confirmed Problem Chronic cystitis (12832976) Chronic cystitis (N30.20) Active confirmed Problem 425769027 Bilateral renal cysts (N28.1) Active confirmed Problem Chronic interstitial cystitis (57187798373147) Chronic interstitial cystitis (N30.10) Active confirmed Problem 3775656591960 History of UTI (Z87.440) Active confirmed Problem 670304269 Bladder wall thickening (N32.89) Active confirmed Problem 075649683 Bladder mass (N32.89) Active confirmed Vital Signs Heart Rate 67 /min 12/26/2023 Blood pressure diastolic 84 mm Hg 12/26/2023 Height-cm 165.1 cm 12/26/2023 Weight-kg 86.18 kg 12/26/2023 Height 65 in 12/26/2023 Blood pressure systolic 133 mm Hg 12/26/2023 Weight 190 lbs 12/26/2023 BMI 31.61 kg/m2 12/26/2023 Procedures Procedure Date Ordered Date Performed Result Body Sit e Bladder Scan 10/30/2023 10/30/2023 N/A Bladder Scan 11/20/2023 11/20/2023 N/A Bladder Scan 12/26/2023 12/26/2023 PVR 24ml Bladder Scan 05/03/2024 05/03/2024 N/A Encounters Encounter Location Date Provider Diagnosis [facility] [place] [address] [place] [address] 10/30/2023 GEOVANNA MENDIETA Chronic cystitis N30 .20 ; Dysuria R30.0 ; Low back pain M54.50 ; Urinary frequency R35.0 ; Urinary urgency R39.15 ; Overactive bladder N32.81 ; Chronic constipation K59.09 ; History of UTI Z87.440 ; Bladder wall thickening N32.89 and Bilateral renal cysts N28.1 [facility], [facility] [address] [facility] [address] [place] [address] 11/20/2023 GEOVANNA IAMTONY Chronic cystitis N30 .20 ; Overactive bladder N32.81 ; Urinary frequency R35.0 ; Urinary urgency R39.15 ; Chronic constipation K59.09 ; Suprapubic tenderness R10.819 ; Low back pain M54.50 ; Bilateral renal cysts N28.1 and History of UTI Z87.440 [facility], [facility] [address] [place] [address] 12/26/2023 GEOVANNA MENDIETA Chronic cystitis N30 .20 ; Vaginal dryness N89.8 ; Pelvic pressure in female R10.2 ; S/P hysterectomy Z90.710 ; Overactive bladder N32.81 ; Urinary frequency R35.0 ; Urinary urgency R39.15 ; Chronic constipation K59.09 and History of UTI Z87.440 [facility], [facility] [address] [place] [address] 05/03/2024 GEOVANNA MENDIETA Chronic cystitis N30 .20 ; Dysuria R30.0 ; Chills R68.83 ; Microscopic hematuria R31.29 ; Pelvic pressure in female R10.2 ; S/P hysterectomy Z90.710 and History of UTI Z87.440 [facility], [facility] [address] [place] [address] 11/02/2023 GEOVANNA MENDIETA [facility], [facility] [address] [place] [address] 11/23/2023 GEOVANNA MENDIETA [facility] [address] [place] [address] 12/06/2023 GEOVANNA MENDIETA [facility], [facility] [address] [place] [address] 05/07/2024 GEOVANNA MENDIETA [facility], [facility] [address] [place] [address] 05/30/2024 GEOVANNA MENDIETA Assessments Encounter Date Diagnosis (ICD Code) Assessment Notes Treatment Notes Treatment Clinical Notes Section Notes 12/26/2023 Chronic cystitis (ICD-10 - N30.20) 12/26/2023 Vaginal dryness (ICD-10 - N89.8) 11/20/2023 Overactive bladder (ICD-10 - N32.81) 11/20/2023 Chronic cystitis (ICD-10 - N30.20) 10/30/2023 Dysuria (ICD-10 - R30.0) 10/30/2023 Chronic cystitis (ICD-10 - N30.20) 05/03/2024 Dysuria (ICD-10 - R30.0) 05/03/2024 Chronic cystitis (ICD-10 - N30.20) 05/03/2024 Chills (ICD-10 - R68.83) 10/30/2023 Low back pain (ICD-10 - M54.50) 11/20/2023 Urinary frequency (ICD-10 - R35.0) 12/26/2023 Pelvic pressure in female (ICD-10 - R10.2) 12/26/2023 S/P hysterectomy (ICD-10 - Z90.710) 11/20/2023 Urinary urgency (ICD-10 - R39.15) 10/30/2023 Urinary frequency (ICD-10 - R35.0) 05/03/2024 Microscopic hematuria (ICD-10 - R31.29) 05/03/2024 Pelvic pressure in female (ICD-10 - R10.2) 10/30/2023 Urinary urgency (ICD-10 - R39.15) 11/20/2023 Chronic constipation (ICD-10 - K59.09) 12/26/2023 Overactive bladder (ICD-10 - N32.81) 12/26/2023 Urinary frequency (ICD-10 - R35.0) 11/20/2023 Suprapubic tenderness (ICD-10 - R10.819) 10/30/2023 Overactive bladder (ICD-10 - N32.81) 05/03/2024 S/P hysterectomy (ICD-10 - Z90.710) 05/03/2024 History of UTI (ICD-10 - Z87.440) 10/30/2023 Chronic constipation (ICD-10 - K59.09) 12/26/2023 Urinary urgency (ICD-10 - R39.15) 11/20/2023 Low back pain (ICD-10 - M54.50) 12/26/2023 Chronic constipation (ICD-10 - K59.09) 11/20/2023 Bilateral renal cysts (ICD-10 - N28.1) 10/30/2023 History of UTI (ICD-10 - Z87.440) 10/30/2023 Bladder wall thickening (ICD-10 - N32.89) 11/20/2023 History of UTI (ICD-10 - Z87.440) 12/26/2023 History of UTI (ICD-10 - Z87.440) 10/30/2023 Bilateral renal cysts (ICD-10 - N28.1) 10/30/2023 Other UA with 1+ leukocytes. Sent for culture, call with results and treat as indicated. She had some improvement on Gemtesa, but unsure of insurance coverage. I will give her samples of Myrbetriq today. She will take 25 mg daily x 1 week then increase to 50 mg. Administration side effect profile reviewed. Rx sent to pharmacy to assess for insurance coverage. Recommend that she start something other than magnesium for constipation as she is only having bowel movements every 2 to 3 days. We discussed how this can contribute to her recurrent infections and worsen her OAB. Patient agreeable. She will return to clinic in 4 to 6 weeks for symptom reassessment with UA/PVR. All questions that were asked were answered. Patient satisfied plan of care. 11/20/2023 Other UA clear, PVR 0 ml. She reports low back pain and SP tenderness. Send urine for culture to ensure resolution of previous infection vs. need for additional treatment. Continue Myrbetriq. RTC in 6 months with UA/PVR, or sooner PRN. All questions that were asked were answered. Patient satisfied with plan of care. 12/26/2023 Other UA is clear, PV R 25ml. We have discussed that atrophic vaginal tissue can cause chronic dysuria. Recommend trialing vaginal estrogen. Administration and s/e profile reviewed. Rx sent in. She is having pelvic pressure and feeling like something is falling. She is s/p hysterectomy. She has not seen BUSINESS REPRESENTATIVE in sometime. Recommend referral for pelvic exam to rule out prolapse, as this can worsen her bladder irritation and make OAB symptoms worse. Also recommended increasing water and avoiding bladder irritants. Handout given. She will RTC as scheduled for follow up, or PRN if needed. All questions that were asked were answered. Patient satisfied with plan of care. 05/03/2024 Other UA with microsc opic hematuria. She reports dysuria and chills. Send for PCR. I will start her on Cipro prophylactically over the weekend. She did not get scheduled for BUSINESS REPRESENTATIVE appt, we will follow up on this. RTC in 3 months with UA/PVR, or PRN sooner. Plan Of Treatment Pending Test Test Name Order Date Colonoscopy, High Risk Screening-[id number] 0 09/07/2022 CULTURE, URINE, ROUTINE (395) 10/30/2023 Next Appt Details Provider Name:GEOVANNA MENDIETA, 0 09/10/2024 03:40:00 PM, [address] [place], [address], Insurance Providers Payer Name Payer Address Payer Phone Subscriber Number Group Number Insured Name Patient Relationship to Insured Coverage Start Date Coverage End Date [place] [address] [address] [place], [place] [id number] DEVAN, MARLINE Self - patient is the insured C[employer] Medicare Supplement [address] [place]ÍNEZ DECKER [id number] TOSIN PENDLETONA Self - patient is the insured Medical [...] apnea (finding) , Status : : Active Heart attack Surgical History Surgery Date(Month/Year) thyroidectomy, complete hysterectomy left knee replacement right knee replacement cardiac stent placement Hospitalization History Reason Date(Month/Year) heart attack surgery
--- OUTSIDE RECORDS SUMMARY | 2024-09-01 20:16 | XMS_ITS | Clinical Summary ---
Author Organization [facility] Address [address] [address] Phone Care Team Providers Care Clean Room Operator Name Role Phone Bonnie Amador NP Primary Care Provider [phone] Allergies Active Allergy Reactions Criticality Noted Date Comments Penicillins Rash Low 10/09/2016 Sulfa (Sulfonamide Antibiotics) Hives High 09/14 Tramadol Anaphylaxis High 10/09/2016 Medications HYDROcodone-acet aminophen (NORCO) 10-325 mg Tablet Take 1 Tablet by mouth every 4 hours as needed for Pain, Moderate. Active metoprolol tartrate (LOPRESSOR) 50 mg tablet Take 50 mg by mouth daily. Active ISOSORBIDE MONONITRATE ORAL Take by mouth. Active OXYBUTYNIN CHLORIDE (DITROPAN ORAL) Take by mouth 3 times daily as needed. Active CRANBERRY FRUIT EXTRACT (CRANBERRY CONCENTRATE ORAL) Take by mouth. Active zolpidem (AMBIEN) 10 mg tablet Take 10 mg by mouth nightly as needed for Insomnia. Active metroNIDAZOLE (FLAGYL) 500 mg tablet Take 1 Tablet (500 mg) by mouth 4 times daily. 30 Tablet 04/24/2017 Active ciprofloxacin HCl (CIPRO) 750 mg tablet Take 1 Tablet (750 mg) by mouth 2 times daily. 15 Tablet 04/24/2017 Active Social History Tobacco Use Types Packs/Day Years Used Date Smoking Tobacco: Never Smokeless Tobacco: Never Alcohol Use Standard Drinks/Week Comments No 0 (1 standard drink = 0.6 oz pur e alcohol) Comments No Sex and Gender Information Value Date Recorded Sex Assigned at Not on file Legal Sex Female 8:59 PM CDT Gender Identity Not on file Sexual Orientation Not on file Last Filed Vital Signs Vital Sign Reading Time Taken Comments Blood Pressure 152/74 04/24/2017 9:25 PM CDT Pulse - - Temperature 36.8 C (98.2 F) 04/24/2017 9:25 PM CDT Respiratory Rate 16 04/24/2017 9:25 PM CDT Oxygen Saturation 97% 04/24/2017 9:25 PM CDT Inhaled Oxygen Concentration - - Weight 81.6 kg (180 lb) 04/24/2017 4:35 PM CDT Height 165.1 cm (5' 5 ) 04/24/2017 4:35 PM CDT Body Mass Index 29.95 04/24/2017 4:35 PM CDT Plan of Treatment Health Maintenance Due Date Last Done Comments DTAP/TDAP/TD VACCINES (1 - Tdap) 1973 BREAST CANCER SCREENING 1994 COLORECTAL SCREENING 1999 Colorectal Cancer Screening 1999 FIT-DNA Q 3 years 1999 FIT/FOBT Q 1 year 1999 Flex Sig/CT Colonography Q 5 years 1999 PNEUMOCOCCAL VACCINE 50+ YEARS (1 of 1 - PCV) 04/03/19 05 ZOSTER VACCINE (1 of 2) 2004 OSTEOPOROSIS SCREENING 2019 INFLUENZA VACCINE (#1) 2024 RSV VACCINE (60+ or ) (1 - 1-dose 75+ series) 2029 Insurance BS Care Teams Clean Room Operator Relationship Specialty Start Date End Date Bonnie Amador NP PCP - General NURSE PRACTITIONER 04/24/17
--- OUTSIDE RECORDS SUMMARY | 2024-09-01 20:17 | XMS_ITS | Encounter Summary ---
Author Organization [facility] Address [address] [place] [address] Care Team Providers Care Paver Installer Name Role Phone Bonnie Amador TEAM SPORTS SALES ASSOCIATE Primary Care Provider [phone]- [phone] Encounter Details Date Type Department Care Team (Late st Contact Info) Description 11/23/2007 Outpatient Historical [facility] Mariya Monique MD [address] [facility] [address] [place] [address] Abdominal Pain Social History Tobacco Use Types Packs/Day Years Used Date Smoking Tobacco: Former Cigarettes Q uit: 02/13/1979 Alcohol Use Standard Drinks/Week Comments No 0 (1 standard drink = 0.6 oz pur e alcohol) Comments No Sex and Gender Information Value Date Recorded Sex Assigned at Not on file Legal Sex Female 3:29 AM EXAMINATION SUPERVISOR Gender Identity Not on file Sexual Orientation Not on file documented as of this encounter Plan of Treatment Not on file documented as of this encounter Procedures Procedure Name Priority Date/Time Associated Diagnosis Comments NM GASTRIC EMPTYING Timed Study 11/23/2007 8:28 AM CDT documented in this encounter Results * NM GASTRIC EMPTYING (11/23/2007 8:28 AM CDT) Anatomical Region Laterality Modality Abdomen Other 11/23/2007 8:28 AM CDT Narrative 11/23/2007 12:32 PM CDT [facility] [address] [place], [place] [address] Admit Date: 11/23/2007 SIMRAN PENDLETON Sex: F Admit Prov: MARIYA MONIQUE Date: 1955 [facility] Prov: [facility] LAWNN: [id number] [id number] [facility] Ordering Prov: N/A Accession Number: [id number] Interpretation Gastric emptying study History: 52-year-old female with abdominal pain for the last year. 8 pounds weight loss over 2 months. Evaluate for gastroparesis. Procedure: 0.5 mCi 99m technetium sulfur colloid labeled to eggs and served as an egg sandwich with 300 cc 's of water. Findings: Gastric emptying is 13 % at 30 minutes, 22 % at 1 hour, 40 % at 2 hours, 93 % at 3 hours Impressions: Abnormal gastric emptying study with an estimated T-1/2 of 130 minutes (normal value less than 120 minutes). Findings suggestive of mild gastroparesis. . Dictated by: RACHNA LAZCANO 11/23/2007 12:30 Electronically signed by: RACHNA LAZCANO 11/23/2007 12:31 Procedure Note Rachna Lazcano MD - 11/23/[address] [address] Admit Date: 11/23/2007 SIMRAN PENDLETON Sex: F Admit Prov: MARIYA MONIQUE Date: 1955 Primary Care Prov: CMRN: [id number] [id number] [facility] Ordering Prov: N/A Interpretation Gastric emptying study History: 52-year-old female with abdominal pain for the last year. 8pounds weight loss over 2 months. Evaluate for gastroparesis. Procedure: 0.5 mCi 99m technetium sulfur colloid labeled to eggs andserved as an egg sandwich with 300 cc 's of water. Findings: Gastric emptying is 13 % at 30 minutes, 22 % at 1 hour, 40% at 2 hours, 93 % at 3 hours Impressions: Abnormal gastric emptying study with an estimated T-1/2of 130 minutes (normal value less than 120 minutes). Findings suggestive ofmild gastroparesis. . Dictated by: RACHNA LAZACNO 11/23/2007 12:30 Electronically signed by: RACHNA LAZCANO 11/23/2007 12:31 us Mariya Monique MD NM ORDERABLES Final Resu lt documented in this encounter Visit Diagnoses Diagnosis Abdominal pain documented in this encounter Care Teams Paver Installer Relationship Specialty Start Date End Date Bonnie Amador NP [address] [place] [phone] PCP - General NURSE PRACTITIONER 04/24/17 documented as of this encounter
--- OUTSIDE RECORDS SUMMARY | 2024-09-01 20:17 | XMS_ITS | Encounter Summary ---
Author Organization [facility] Address [address] [place] [address] Care Team Providers Care Beekeeper Name Role Phone Bonnie Amador MUSEUM HOST/HOSTESS Primary Care Provider [phone]- [phone] Encounter Details Date Type Department Care Team (Latest Contact Info) Description 11/16/2007 Outpatient Historical [facility] CARDIOPULMONARY Tristian Reed MD [address] [address] Unspecified Pre-Operative Examination Social History Tobacco Use Types Packs/Day Years Used Date Smoking Tobacco: Former Cigarettes Q uit: 02/13/1979 Alcohol Use Standard Drinks/Week Comments No 0 (1 standard drink = 0.6 oz pur e alcohol) Comments No Sex and Gender Information Value Date Recorded Sex Assigned at Not on file Legal Sex Female 3:29 AM LIGHTING SPECIALIST Gender Identity Not on file Sexual Orientation Not on file documented as of this encounter Plan of Treatment Not on file documented as of this encounter Visit Diagnoses Diagnosis Preoperative examination, unspecified documented in this encounter Care Teams Beekeeper Relationship Specialty Start Date End Date Bonnie Amador NP [address] [place] [phone] PCP - General NURSE PRACTITIONER 04/24/17 documented as of this encounter
--- OUTSIDE RECORDS SUMMARY | 2024-09-01 20:17 | XMS_ITS | Encounter Summary ---
Author Organization [facility] Address [address] [place] [address] Care Team Providers Care Ecd Name Role Phone Bonnie Amador PLATE TAKE OUT WORKER Primary Care Provider +1- [phone] Encounter Details Date Type Department Care Team (Late st Contact Info) Description 11/07/2007 Outpatient Historical HIS [facility] JACK Perez, Adelaide Storm MD [address] [address] Nausea with Vomiting Social History Tobacco Use Types Packs/Day Years Used Date Smoking Tobacco: Never Assessed Comments Unknown Sex and Gender Information Value Date Recorded Sex Assigned at Not on file Legal Sex Female 3:29 AM EDUCATIONAL SPECIALIST Gender Identity Not on file Sexual Orientation Not on file documented as of this encounter Plan of Treatment Not on file documented as of this encounter Procedures Procedure Name Priority Date/Time Associated Diagnosis Comments CBC WITH DIFFERENTIAL Stat 11/07/2007 5:02 PM CDT C-REACTIVE PROTEIN Stat 11/07/2007 5: 02 PM CDT LIPASE Stat 11/07/2007 5:02 PM CDT COMPREHENSIVE METABOLIC PANEL Stat 11/07/2007 5:02 PM CDT documented in this encounter Results * (ABNORMAL) COMPREHENSIVE METABOLIC PANEL (11/07/2007 5:02 PM CDT) ALKALINE PHOSPHATASE 91 35 - 104 U/L [facility] BILIRUBIN TOTAL 0.3 0.2 - 1.0 mg/dL [facility] CO2 26 22 - 30 mmol/L [facility] TOTAL PROTEIN 7.4 6.3 - 8.6 g/dL [facility] POTASSIUM 4.2 3.5 - 4.9 mmol/L [facility] GLUCOSE 100(H) 65 - 99 mg/dL [facility] AST 25 12 - 32 U/L [facility] BUN 8 6 - 20 mg/dL [facility] CALCIUM 9.2 8.6 - 10.2 mg/dL [facility] CHLORIDE 106 96 - 108 mmol/L [facility] ALBUMIN 4.6 3.4 - 4.8 g/dL [facility] CREATININE 0.80 0.51 - 0.95 mg/dL [facility] SODIUM 143 135 - 145 mmol/L [facility] ALT 23 0 - 31 U/L [facility] GFR, >60 >=60 mL/min/1. 7 sq meter [facility] GFR >60 >=60 mL/min/1. 7 sq meter [facility] Comment: Modification of Diet in Renal Disease (MDRD) study formula. Estimated GFR rate interpretative information for both Americans and non- Americans is available on the [facility] Intranet at: [email or web address] Select: Lab Policies and Procedures Select: Reference Ranges - GFR Blood specimen (specimen) 11/07/2007 5:02 PM CDT 11/07/2007 5:08 PM CDT Adelaide Perez MD CHEMISTRY ORDERABLES [facility] Organization Address City/State/ZIP Co de Phone Number INTERFACE SYSTEM Refer to clinic/hospital department [facility] CLIA# [id number] [address] [place] [address] * LIPASE (11/07/2007 5:02 PM CDT) LIPASE 32 13 - 60 U/L [facility] Blood specimen (specimen) 11/07/2007 5:02 PM CDT 11/07/2007 5:08 PM CDT Adelaide Perez MD CHEMISTRY ORDERABLES Fin al Result Performing Organization Address [facility] de Phone Number INTERFACE SYSTEM Refer to clinic/hospital department [facility] CLIA# [id number] [address] [place] [address] * C-REACTIVE PROTEIN (11/07/2007 5:02 PM CDT) CRP 0.2 0.0 - 0.8 mg/dL [facility] Blood specimen (specimen) 11/07/2007 5:02 PM CDT 11/07/2007 5:08 PM CDT Adelaide Perez MD CHEMISTRY ORDERABLES Fin al Result Performing Organization Address City/[facility] de Phone Number INTERFACE SYSTEM Refer to clinic/hospital department [facility] CLIA# [id number] [address] [place] [address] * CBC WITH DIFFERENTIAL (11/07/2007 5:02 PM CDT) WBC 6.6 4.0 - 9.8 K/uL [facility] MCH 30.2 27.2 - 32.6 pg [facility] MPV 10.8 9.3 - 12.4 fL [facility] HEMATOCRIT 41.3 35.5 - 44.0 % [facility] RDW-STDEV 41.5 37.1 - 48.7 fL [facility] RBC 4.64 3.90 - 4.90 M/uL [facility] MCHC 33.9 31.5 - 35.5 % [facility] MCV 89.0 82.0 - 99.0 fL [facility] PLATELETS 210 140 - 350 K/uL [facility] HEMOGLOBIN 14.0 11.8 - 14.8 g/dL [facility] RDW 13.0 11.5 - 14.5 % [facility] BASOPHILS 0 0 - 2 % [facility] BASOPHILS ABSOLUTE 0.02 0.00 - 0.20 K/uL [facility] MONOCYTES 6 3 - 13 % [facility] MONOCYTE ABSOLUTE 0.38 0.10 - 1.30 K/uL [facility] NEUTROPHILS 58 45 - 70 % [facility] NEUTROPHIL ABSOLUTE 3.85 1.90 - 7.00 K/uL [facility] EOSINOPHILS 2 0 - 7 % [facility] EOSINOPHIL ABSOLUTE 0.13 0.00 - 0.70 K/uL [facility] LYMPHOCYTES 34 16 - 45 % [facility] LYMPHOCYTE ABSOLUTE 2.25 0.70 - 4.50 K/uL [facility] Blood specimen (specimen) 11/07/2007 5:02 PM CDT 11/07/2007 5:07 PM CDT Narrative INTERFACE SYSTEM - 11/07/2007 6:[address] perez 11/07/07 6:13 PM dl verbal results to dr perez 11/07/07 6:16 PM dl us Adelaide Perez MD HEMATOLOGY ORDERABLES Ed ited INTERFACE SYSTEM Refer to clinic/hospital department [facility] CLIA# [id number] [address] [facility] [place] [address] documented in this encounter Visit Diagnoses Diagnosis Nausea with vomiting documented in this encounter Care Teams Ecd Relationship Specialty Start Date End Date Bonnie Amador NP [address] [place] [phone] PCP - General NURSE PRACTITIONER 04/24/17 documented as of this encounter
--- OUTSIDE RECORDS SUMMARY | 2024-09-01 20:17 | XMS_ITS | Encounter Summary ---
Author Organization [facility] Address [address] [place] [address] Care Team Providers Care Electroplating Laborer Name Role Phone Bonnie Amador WHEEL PRESSER Primary Care Provider [phone]- [phone] Encounter Details Date Type Department Care Team (Late st Contact Info) Description 11/08/2007 Outpatient Historical [facility] Adelaide Jaramillo MD [address] [place] [phone] Nausea with Vomiting Social History Tobacco Use Types Packs/Day Years Used Date Smoking Tobacco: Never Assessed Comments Unknown Sex and Gender Information Value Date Recorded Sex Assigned at Not on file Legal Sex Female 3:29 AM HOG HANDLER Gender Identity Not on file Sexual Orientation Not on file documented as of this encounter Plan of Treatment Pending Results Name Type Priority Associated Diagnoses Date /Time CLOSTRIDIUM DIFFICILE TOXIN Microbiology Routine 11/08/2007 3:44 PM CDT STOOL CULTURE (LA,SHIG,CAMPY,ECY530 ) Microbiology Routine 11/08/2007 3:44 PM CDT GIARDIA ANTIGEN Microbiology Routine 008 3:44 PM CDT STOOL CULTURE (LA,SHIG,CAMPY,MGN843 ) Microbiology Routine 11/08/2007 3:44 PM CDT documented as of this encounter Procedures Procedure Name Priority Date/Time Associated Diagnosis Comments STOOL CULTURE (LA,SHIG,CAMPY,ECO1 57) Routine 11/08/2007 3:44 PM CDT STOOL CULTURE (LA,SHIG,CAMPY,ECO1 57) Routine 11/08/2007 3:44 PM CDT STOOL CULTURE (LA,SHIG,CAMPY,ECO1 57) Routine 11/08/2007 3:44 PM CDT GLIADIN ABS IGG/IGA Routine 11/08/2007 3 :44 PM CDT C. DIFFICILE DETECTION Routine 11/08/2007 3:44 PM CDT ROTAVIRUS ANTIGEN Routine 11/08/2007 3:4 4 PM CDT FECAL LEUKOCYTES STAIN Routine 11/08/2007 3:44 PM CDT GIARDIA ANTIGEN Routine 11/08/2007 3:44 PM CDT GIARDIA ANTIGEN Routine 11/08/2007 3:44 PM CDT OVA AND PARASITE SCREEN Routine 11/08/2007 3:44 PM CDT documented in this encounter Results * STOOL CULTURE (LA,SHIG,CAMPY,FZB088) (11/08/2007 3:44 PM CDT) FINAL REPORT No Salmonella isolated. No Shigella isolated. No Escherichia coli serogroup O157:H7 isolated. No Camplylobacter isolated. [facility] Stool specimen (specimen) 11/08/2007 3:44 PM CDT 11/08/2007 6:06 PM CDT Adelaide Jaramillo MD MICROBIOLOGY - GENERAL O RDERABLES Final Result INTERFACE SYSTEM Refer to clinic/hospital department [facility] CLIA# [id number] [facility] [address] [address] * CLOSTRIDIUM DIFFICILE TOXIN (11/08/2007 3:44 PM CDT) FINAL REPORT NO Clostridium difficile Toxin A or B detected by EIA. A negative result does not rule out C. difficile associated diarrhea or colitis. [facility] Stool specimen (specimen) 11/08/2007 3:44 PM CDT 11/08/2007 6:06 PM CDT Adelaide Jaramillo MD MICROBIOLOGY - GENERAL O RDERABLES Final Result Performing Organization Address [facility] de Phone Number INTERFACE SYSTEM Refer to clinic/hospital department [facility] CLIA# [id number] [address] [place] [address] * GIARDIA ANTIGEN (11/08/2007 3:44 PM CDT) FINAL REPORT Giardia Antigen: Negative by EIA. -- Note: A negative does not rule out infection. [facility] Stool specimen (specimen) 11/08/2007 3:44 PM CDT 11/08/2007 6:06 PM CDT Adelaide Jaramillo MD MICRO - GEN ORDERABLES C OM Final Result Performing Organization Address [facility] de Phone Number INTERFACE SYSTEM Refer to clinic/hospital department [facility] CLIA# [id number] [address] [place] [address] * GLIADIN ABS IGG/IGA (11/08/2007 3:44 PM CDT) GLIADIN IGA AB 5 <11 U/mL [facility] Comment: Reference Range: <11 U/mL Negative 11-17 U/mL Equivocal >17 U/mL Positive Lab test performed by: [facility] [address] [place] [address] SHANELL LOCKE MD GLIADIN IGG AB <3 <11 U/mL [facility] Comment: Reference Range: <11 U/mL Negative 11-17 U/mL Equivocal >17 U/mL Positive Blood specimen (specimen) 11/08/2007 3:44 PM CDT 11/08/2007 5:27 PM CDT Adelaide Jaramillo MD CHEMISTRY ORDERABLES Fin al Result Performing Organization Address [facility] de Phone Number INTERFACE SYSTEM Refer to clinic/hospital department [facility] CLIA# [id number] [address] [place] [address] * ROTAVIRUS ANTIGEN (11/08/2007 3:44 PM CDT) FINAL REPORT Rotavirus Antigen: Negative by ICT assay. -- Note: A negative does not rule out infection. [facility] Stool specimen (specimen) 11/08/2007 3:44 PM CDT 11/08/2007 6:06 PM CDT Adelaide Jaramillo MD BODY FLUIDS AND STOOLS F inal Result Performing Organization Address [facility] de Phone Number INTERFACE SYSTEM Refer to clinic/hospital department [facility] CLIA# [id number] [address] [place] [address] * OVA AND PARASITE SCREEN (11/08/2007 3:44 PM CDT) PRELIMINARY REPORT Pending [facility] FINAL REPORT Concentration : No ova or parasites seen. Trichrome: No ova or parasites seen. [facility] Stool specimen (specimen) 11/08/2007 3:44 PM CDT 11/08/2007 6:06 PM CDT Narrative INTERFACE SYSTEM - 11/16/2007 12:08 PM CDT Performed by [employer] [address] Performed by [employer] [address] Adelaide Jaramillo MD MICROBIOLOGY - GENERAL O RDERABLES Final Result Performing Organization Address [facility] de Phone Number INTERFACE SYSTEM Refer to clinic/hospital department [facility] CLIA# [id number] [address] [address] * FECAL LEUKOCYTES STAIN (11/08/2007 3:44 PM CDT) FINAL REPORT No WBC's seen. [facility] Stool specimen (specimen) 11/08/2007 3:44 PM CDT 11/08/2007 6:06 PM CDT Adelaide Jaramillo MD MICROBIOLOGY - GENERAL O RDERABLES Final Result INTERFACE SYSTEM Refer to clinic/hospital department [facility] CLIA# [id number] [address] [address] documented in this encounter Visit Diagnoses Diagnosis Nausea with vomiting documented in this encounter Care Teams Electroplating Laborer Relationship Specialty Start Date End Date Bonnie Amador NP [address] [place] [phone] PCP - General NURSE PRACTITIONER 04/24/17 documented as of this encounter
--- OUTSIDE RECORDS SUMMARY | 2024-09-01 20:17 | XMS_ITS | Encounter Summary ---
Author Organization [employer] Address [address] [place] [address] Care Team Providers Care Director Business Development Name Role Phone Bonnie Amador BATCH TRUCKER Primary Care Provider [phone]- [phone] Encounter Details Date Type Department Care Team (Late st Contact Info) Description 11/24/2007 Emergency [facility] Er, Authorized P NO ADDRESS ON FILE Sudhakar Dickey MD [facility] [place] [address] Social History Tobacco Use Types Packs/Day Years Used Date Smoking Tobacco: Former Cigarettes Q uit: 02/13/1979 Alcohol Use Standard Drinks/Week Comments No 0 (1 standard drink = 0.6 oz pur e alcohol) Comments No Sex and Gender Information Value Date Recorded Sex Assigned at Not on file Legal Sex Female 3:29 AM VICE PRESIDENT OF CUSTOMER SERVICE Gender Identity Not on file Sexual Orientation Not on file documented as of this encounter Plan of Treatment Not on file documented as of this encounter Procedures Procedure Name Priority Date/Time Associated Diagnosis Comments URINE CULTURE Stat 11/24/2007 3:35 AM CDT POC URINALYSIS DIPSTICK NON AUTOMATED Routine 11/24/2007 3:10 AM CDT documented in this encounter Results * URINE CULTURE (11/24/2007 3:35 AM CDT) PRELIMINARY REPORT Pending [facility] FINAL REPORT No growth 24 hours [facility] 11/24/2007 3:35 AM CDT 11/24/2007 6:37 AM CDT us Sudhakar Dickey MD MICROBIOLOGY - GENERAL ORDERABLE S Final Result Performing Organization Address [facility] de Phone Number INTERFACE SYSTEM Refer to clinic/hospital department [facility] CLIA# [id number] [address] [place] [address] * (ABNORMAL) POC URINALYSIS DIPSTICK NON AUTOMATED (11/24/2007 3:10 AM CDT) LEUKOCYTE ESTERASE UA Trace(A) Negative [facility] UROBILINOGEN UA Normal <=1 mg/dL [facility] SPECIFIC GRAVITY UA 1.025 1.001 - 1.030 [facility] GLUCOSE UA Negative Negative [facility] COLOR UA Yellow [facility] NITRITE UA Negative Negative [facility] BILIRUBIN UA Negative Negative [facility] PH UA 5.0 5.0 - 8.0 [facility] KETONES UA Negative Negative [facility] CLARITY UA Clear [facility] BLOOD UA Negative Negative [facility] PROTEIN UA Negative Negative [facility] Urine specimen (specimen) 11/24/2007 3:10 AM CDT 11/24/2007 3:10 AM CDT us Authorized P Er POINT OF CARE TESTING Final Resu lt Performing Organization Address City/[facility] Co de Phone Number INTERFACE SYSTEM Refer to clinic/hospital department [facility] CLIA# [id number] [address] [place] [address] documented in this encounter Visit Diagnoses Not on filedocumented in this encounter Care Teams Director Business Development Relationship Specialty Start Date End Date Bonnie Amador NP [address] [place] [phone] PCP - General NURSE PRACTITIONER 04/24/17 documented as of this encounter
--- OUTSIDE RECORDS SUMMARY | 2024-09-01 20:17 | XMS_ITS | Encounter Summary ---
Author Organization [employer] [facility] Address [address] [place] [address] Care Team Providers Care Senior Capital Markets Specialist Name Role Phone Marjorie, Bonnie Banerjee CUSTOMER SUPPORT SPECIALIST Primary Care Provider [phone]- [phone] Encounter Details Date Type Department Care Team (Late st Contact Info) Description 11/19/2007 Outpatient Historical [facility] Greg Nuñez MD [address] [place] [address] Abdominal Pain, Epigastric Social History Tobacco Use Types Packs/Day Years Used Date Smoking Tobacco: Former Cigarettes Q uit: 02/13/1979 Alcohol Use Standard Drinks/Week Comments No 0 (1 standard drink = 0.6 oz pur e alcohol) Comments No Sex and Gender Information Value Date Recorded Sex Assigned at Not on file Legal Sex Female 3:29 AM JOURNEYMAN WELDER Gender Identity Not on file Sexual Orientation Not on file documented as of this encounter Plan of Treatment Not on file documented as of this encounter Procedures Procedure Name Priority Date/Time Associated Diagnosis Comments PATHOLOGY Routine 11/19/2007 3:34 PM CDT documented in this encounter Results * PATHOLOGY (11/19/2007 3:34 PM CDT) FINAL REPORT [facility] [address] [place], [place] [address] Patient: SIMRAN PENDLETON : 1955 Procedure Date: 11/19/2007 Accession Date: 11/19/2007 Case No: [id number] Ordering Dr: GREG NUÑEZ Case types AW, BW, FW, NW and SH are performed by [facility], [place], [place] SURGICAL PATHOLOGY & NON-GYNECOLOGIC CYTOPATHOLOGY REPORT DIAGNOSIS SMALL INTESTINE, BIOPSY: - FOCAL MILD INCREASE IN INTRAEPITHELIAL LYMPHOCYTES (SEE MICROSCOPIC DESCRIPTION). STOMACH, BIOPSY: - ACTIVE CHRONIC GASTRITIS WITH NUMEROUS H. PYLORI ORGANISMS. LARGE INTESTINE, RANDOM, BIOPSY: - NO PATHOLOGIC DIAGNOSIS. Specimen Description: (1) Small bowel biopsy; (2) gastric biopsy; (3) random colon biopsy. Operative Procedure: Colonoscopy EGD. Patient Information/History/Di agnosis: (1) Small bowel Bx. Rule out sprue (chronic diarrhea and/or Fe-deficiency anemia). (2) Gastritis. Rule out H. pylori infection. (3) Chronic diarrhea. Please look for collagenous colitis, microscopic colitis. Gross: The specimen is received in three containers, each labeled Simran Pendleton. Received in the first container labeled small bowel are two pieces of griffin tissue, each measuring 0.2 cm in greatest dimension. The entire specimen is submitted in cassette A1. Received in the second container labeled gastric are two pieces of griffin tissue, measuring 0.1 and 0.2 cm in greatest dimension. The entire specimen is submitted in cassette B1. Received in the third container labeled random colon biopsy are four pieces of griffin tissue, ranging from 0.1 to 0.2 cm in greatest dimension. The entire specimen is submitted in cassette C1. [facility] 11.19.2007 06:07 pm Microscopic: The slides are labeled [id number], Simran Pendleton. Sections of the small bowel biopsy show two pieces of small intestinal mucosa with preservation of villous architecture. There is a patchy, mild increase in intraepithelial lymphocytes including the tips of a few villi. This is not accompanied by an overall increase in chronic inflammation, nor is it striking or diffuse. There is no active inflammation, and no granulomas or erosions are seen. This is a nonspecific finding and while it may be seen in a number of conditions including celiac sprue, autoimmune diseases, drug reactions, resolving infection, and Crohn's disease; it also is seen in patients with H. pylori infection. Sections of the gastric biopsy show antral mucosa with moderate lamina propria chronic inflammation including several lymphoid aggregates. Foci of acute inflammation with gland infiltration and damage are noted. A few probable H. pylori organisms are noted within the stringy mucus within gland lumens and on the surface epithelium. H. pylori immunohistochemical stain demonstrates the presence of numerous H. pylori organisms. Sections of the random colon biopsy show colonic mucosa with no active inflammation, and no increase in intraepithelial lymphocytes, no thickened subepithelial collagen band, and no chronic crypt architectural changes. Note on use of immunocytochemistry reagents: This test was developed and its performance characteristic determined by [facility], Department of Laboratory Medicine. It has not been cleared or approved by the U.S. Food and Drug Administration. The FDA has determined that such clearance or approval is not necessary. The test is used for clinical purpose. It should not be regarded as investigational or for research. This laboratory is certified to perform high complexity clinical testing. [facility] 11.20.2007 02:23 pm Staging Form: No. ELECTRONIC SIGNATURE FOR ANN THOMSON MD- 11/20/07 05:10 pm INTERFACE SYSTEM 11/19/2007 3:34 PM CDT Greg Nuñez MD PATHOLOGY/CYTOLOGY VERITO CARRANZA Final Result INTERFACE SYSTEM Refer to clinic/hospital department documented in this encounter Visit Diagnoses Diagnosis Abdominal pain, epigastric documented in this encounter Care Teams Senior Capital Markets Specialist Relationship Specialty Start Date End Date Bonnie Amador NP [address] [place] [phone] PCP - General NURSE PRACTITIONER 04/24/17 documented as of this encounter
--- OUTSIDE RECORDS SUMMARY | 2024-09-01 20:17 | XMS_ITS | Encounter Summary ---
Author Organization [employer] Address [address] [place] [address] Care Team Providers Care Chemical Process Operator Name Role Phone Bonnie Amador EXTRUSION DIE REPAIRER Primary Care Provider [phone]- [phone] Encounter Details Date Type Department Care Team (Latest Contact Info) Description 11/15/2007 Outpatient Historical [facility], [address] J Luis White MD [address] [address] Abdominal Pain, Other Specified Site Social History Tobacco Use Types Packs/Day Years Used Date Smoking Tobacco: Former Cigarettes Q uit: 02/13/1979 Alcohol Use Standard Drinks/Week Comments No 0 (1 standard drink = 0.6 oz pur e alcohol) Comments No Sex and Gender Information Value Date Recorded Sex Assigned at Not on file Legal Sex Female 3:29 AM HALL MONITOR Gender Identity Not on file Sexual Orientation Not on file documented as of this encounter Plan of Treatment Not on file documented as of this encounter Visit Diagnoses Diagnosis Abdominal pain, other specified site documented in this encounter Care Teams Chemical Process Operator Relationship Specialty Start Date End Date Bonnie Amador NP [address] [place] [phone] PCP - General NURSE PRACTITIONER 04/24/17 documented as of this encounter
--- OUTSIDE RECORDS SUMMARY | 2024-09-01 20:17 | XMS_ITS | Encounter Summary ---
Author Organization [facility] Address [address] [place] [address] Care Team Providers Care Athletic Field Custodian Name Role Phone Bonnie Amador FLORAL ARTIST Primary Care Provider [phone] Encounter Details Date Type Department Care Team (Late st Contact Info) Description 01/07/2008 Outpatient Historical [facility] John Peck (Tad), [address] [place] [phone] Thoracic or Lumbosacral Neuritis or Radiculitis, Unspecified Social History Tobacco Use Types Packs/Day Years Used Date Smoking Tobacco: Former Cigarettes Q uit: 02/13/1979 Alcohol Use Standard Drinks/Week Comments No 0 (1 standard drink = 0.6 oz pur e alcohol) Comments No Sex and Gender Information Value Date Recorded Sex Assigned at Not on file Legal Sex Female 3:29 AM BUDGET CONSULTANT Gender Identity Not on file Sexual Orientation Not on file documented as of this encounter Plan of Treatment Not on file documented as of this encounter Procedures Procedure Name Priority Date/Time Associated Diagnosis Comments MRI LUMBAR WO CONTRAST Routine 01/07/2008 1:48 PM BUDGET CONSULTANT documented in this encounter Results * MRI LUMBAR WO CONTRAST (01/07/2008 1:48 PM BUDGET CONSULTANT) Anatomical Region Laterality Modality Spine Other 01/07/2008 1:48 PM BUDGET CONSULTANT Narrative 01/07/2008 3:36 PM BUDGET CONSULTANT [address] [address] Admit Date: 01/07/2008 SIMRAN PENDLETON Sex: F Admit Prov: JOHN PECK Date: 1955 Primary Care Prov: FERDINAND REGAN CMRN: [id number] [id number] Ordering Prov: N/A Accession Number: [id number] Interpretation MR LUMBAR SPINE WITHOUT CONTRAST.01/07/08 Clinical History: Low back pain. Procedure: Standard MR images of the lumbar spine were obtained without IV contrast. Findings: Examination of the lumbar spine fails to demonstrate evidence of fracture, dislocation, or subluxation. There is no large herniated nucleus pulposus. Small anteriorly projecting osteophyte is present from the inferior L2 and L3 end plates. Neuroforamina are widely patent. There is mild facet hypertrophy at L4-L5 and L5-S1. Sacroiliac joints are aligned and intact. IMPRESSION: Mild degenerative changes. No evidence of fracture or herniated nucleus pulposus. . Dictated by: Raheem LINO 01/07/2008 15:16 Electronically signed by: Raheem LINO 01/07/2008 15:34 Transcribed: 01/07/2008 15:25 Procedure Note Juancarlos Lino MD - 01/07/2008 [facility] [address] [facility] [address] [place], [place] [address] Admit Date: 01/07/2008 SIMRAN PENDLETON Sex: F Admit Prov: JOHN PECK Date: 1955 Primary Care Prov: FERDINAND REGAN CMRN: [id number] [id number] IM[facility] Ordering Prov: N/A Interpretation MR LUMBAR SPINE WITHOUT CONTRAST.01/07/08 Clinical History: Low back pain. Procedure: Standard MR images of the lumbar spine were obtainedwithout IV contrast. Findings: Examination of the lumbar spine fails to demonstrateevidence of fracture, dislocation, or subluxation. There is no large herniatednucleus pulposus. Small anteriorly projecting osteophyte is present from the inferiorL2 and L3 end plates. Neuroforamina are widely patent. There is mild facet hypertrophy atL4-L5 and L5-S1. Sacroiliac joints are aligned and intact. IMPRESSION: Mild degenerative changes. No evidence of fracture orherniated nucleus pulposus. . Dictated by: Raheem LINO 01/07/2008 15:16 Electronically signed by: Raheem LINO 01/07/2008 15:34 Transcribed: 01/07/2008 15:25 John [place] ([place]) [employer] GARCIA MR ORDERABLES Final Resu lt documented in this encounter Visit Diagnoses Diagnosis Thoracic or lumbosacral neuritis or radiculitis, unspecified documented in this encounter Care Teams Athletic Field Custodian Relationship Specialty Start Date End Date Bonnie Amador NP [address] [place] [phone] PCP - General NURSE PRACTITIONER 04/24/17 documented as of this encounter
--- OUTSIDE RECORDS SUMMARY | 2024-09-01 20:17 | XMS_ITS | Encounter Summary ---
Author Organization [employer] [facility] Address [address] [place] [address] Care Team Providers Care Splicer Helper Name Role Phone Bonnie Amador REGIONAL COORDINATOR Primary Care Provider [phone]- [phone] Encounter Details Date Type Department Care Team (Late st Contact Info) Description 11/30/2007 Outpatient Historical [facility] Adelaide Jaramillo MD [address] [place] [phone] Gastroparesis Social History Tobacco Use Types Packs/Day Years Used Date Smoking Tobacco: Former Cigarettes Q uit: 02/13/1979 Alcohol Use Standard Drinks/Week Comments No 0 (1 standard drink = 0.6 oz pur e alcohol) Comments No Sex and Gender Information Value Date Recorded Sex Assigned at Not on file Legal Sex Female 3:29 AM 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 HELICOPTER Gender Identity Not on file Sexual Orientation Not on file documented as of this encounter Plan of Treatment Not on file documented as of this encounter Procedures Procedure Name Priority Date/Time Associated Diagnosis Comments SCLERODERMA ANTIBODY SCL 70 Routine 11/30/2007 5:04 PM CDT HU ANTIBODY Routine 11/30/2007 5:04 PM CDT PROTEIN ELECTROPHORESIS W/REFLEX,URINE Routine 11/30/2007 5:04 PM CDT ROES SCREEN W/REFLEX Routine 11/30/2007 5 :04 PM CDT PROTEIN ELECTROPHORESIS W/REFLEX,SERUM Routine 11/30/2007 5:04 PM CDT HEMOGLOBIN A1C Routine 11/30/2007 5:04 PM CDT XR CHEST PA AND LATERAL 2 VW Routine 11/30/2007 4:55 PM CDT documented in this encounter Results * PROTEIN ELECTROPHORESIS, SERUM (11/30/2007 5:04 PM CDT) PROTEIN TOTAL, SPE 7.5 6.0 - 8.3 g/dL [facility] ALPHA 2 GLOBULIN SPE 0.89 0.50 - 1.01 g/dL [facility] ALBUMIN SPE 4.55 3.60 - 5.00 g/dL [facility] SPE INTERP Normal electrophoretic pattern. [facility] BETA GLOBULIN 0.98 0.60 - 1.05 g/dL [facility] ELECTROPHORESIS INTERP BY: Shavonne Lemus MD [facility] ALPHA 1 GLOBULIN SPE 0.17 0.12 - 0.30 g/dL [facility] GAMMA GLOBULIN 0.91 0.60 - 1.33 g/dL [facility] Blood specimen (specimen) 11/30/2007 5:04 PM CDT 11/30/2007 9:03 PM CDT Adelaide Jaramillo MD CHEMISTRY ORDERABLES Leon phylicia INTERFACE SYSTEM Refer to clinic/hospital department [facility] CLIA# [id number] [address] [facility] [place] [place] [address] * (ABNORMAL) PROTEIN ELECTROPHORESIS, URINE (11/30/2007 5:04 PM CDT) CREATININE, URINE 221 29 - 226 [facility] Comment:Reference Range vari es with fluid intake and diet. PROTEIN TOTAL, URINE 28(H) 0 - 20 mg/dL [facility] PROTEIN/CREATI NINE RATIO, UPE 0.13 0.00 - 0.19 mg/mg creatinine [facility] UPE INTERPRETED BY: Shavonne Lemus MD [facility] UPE INTERP Pattern indicates predominantly glomerular proteinuria. [facility] Urine specimen (specimen) 11/30/2007 5:04 PM CDT 11/30/2007 9:03 PM CDT Adelaide Jaramillo MD URINE ORDERABLES Edited INTERFACE SYSTEM Refer to clinic/hospital department [facility] CLIA# [id number] [address] [place] [address] * HU ANTIBODY (11/30/2007 5:04 PM CDT) HU AB NEGATIVE [facility] Comment: Reference Range: NEGATIVE Neuronal nuclear (Hu) antibody is present in patients with various neurological symptoms including two paraneoplastic syndromes: sensory neuropathy (PSN) and encephalomyelitis (PEM). The presence of Hu antibody strongly suggests underlying small cell lung carcinoma (SCLC). Hu antibody is identified by IFA and confirmed by Western Blot. A negative result does not exclude the possibility of a SCLC or other malignant tumor. This test was developed and its performance characteristics have been determined by [facility]. It has not been cleared or approved by the U.S. Food and Drug Administration. The FDA has determined that such clearance or approval is not necessary. Performance characteristics refer to the analytical performance of the test. Lab test performed by: Umami/Higgle [id number] SystemsSEVIER VALLEY HOSPITALAN [place] [address] Tashi ULLOA MD HU ANTIBODY WB Not Performed [facility] Comment: Reference Range: NEGATIVE TNP-Supplemental testing not performed. Lab test performed by: Umami/Higgle [id number] SystemsTHE [facility]TH[facility]IC SPECIALTY HOSPITALJUDY JIMENEZ [address] Tashi ULLOA MD HU AB TITER Not Performed Titer [facility] Comment: Reference Range: LESS THAN 1:40 TNP-Screening test negative. Titer not performed. Lab test performed by: Umami/ALEMAN [id number] [place] [address] Tashi ULLOA MD Blood specimen (specimen) 11/30/2007 5:04 PM CDT 11/30/2007 9:03 PM CDT Adelaide Jaramillo MD CHEMISTRY ORDERABLES Leon phylicia Performing Organization Address [facility] Phone Number INTERFACE SYSTEM Refer to clinic/hospital department [facility] CLIA# [id number] [address] [place] [address] * SCLERODERMA ANTIBODY SCL 70 (11/30/2007 5:04 PM CDT) [facility] SCLERODERMA AB SCL 70 <1.0 NEG <1.0 NEG Index [facility] Comment: Lab test performed by: Umami KACI [address] [place] [address] EDUARDO UGALDE MD Blood specimen (specimen) 11/30/2007 5:04 PM CDT 11/30/2007 9:03 PM CDT Adelaide Jaramillo MD CHEMISTRY ORDERABLES Fin al Result Performing Organization Address [facility] de Phone Number INTERFACE SYSTEM Refer to clinic/hospital department [facility] CLIA# [id number] [address] [place] [address] * HEMOGLOBIN A1C (11/30/2007 5:04 PM CDT) [facility] HEMOGLOBIN A1C 5.8 4.1 - 6.1 % of Hgb [facility] GLUCOSE, MEAN BLOOD 129 mg/dL [facility] Blood specimen (specimen) 11/30/2007 5:04 PM CDT 11/30/2007 9:03 PM CDT Adelaide Jaramillo MD CHEMISTRY ORDERABLES Fin al Result Performing Organization Address [facility] de Phone Number INTERFACE SYSTEM Refer to clinic/hospital department [facility] CLIA# [id number] [address] [place] [address] * ROSE (11/30/2007 5:04 PM CDT) [facility] ROSE SCREEN NEGATIVE NEGATIVE [facility] Comment: Lab test performed by: Umami KACI [address] [place] [address] EDUARDO UGALDE MD Blood specimen (specimen) 11/30/2007 5:04 PM CDT 11/30/2007 9:03 PM CDT Adelaide Jaramillo MD CHEMISTRY ORDERABLES Fin al Result Performing Organization Address [facility] de Phone Number INTERFACE SYSTEM Refer to clinic/hospital department [facility] CLIA# [id number] [address] [place] [address] * XR CHEST PA AND LATERAL (11/30/2007 4:55 PM CDT) Anatomical Region Laterality Modality Chest Other 11/30/2007 4:55 PM CDT Narrative 11/30/2007 7:43 PM CDT [facility] [address] [place], [place] [address] Admit Date: 11/30/2007 SIMRAN HARTMAN Sex: F Admit Prov: Shavonne JARAMILLO Date: 1955 Primary Care Prov: FAUSTINAANAYELI FERDINANDRaheem PERDOMO CMRN: [id number] Room: [facility] SSN: [id number] IMAGING SERVICES Ordering Prov: N/A Accession Number: [id number] Interpretation CHEST, PA AND LATERAL 11/30/2007 History: Gastroparesis Findings: No infiltrate, pleural effusion or pneumothorax is present. Heart size, mediastinum and pulmonary vascularity are normal. Impression: No active pulmonary disease. . Dictated by: RODNEY CLEMENT 11/30/2007 17:04 Electronically signed by: RODNEY CLEMENT 11/30/2007 19:42 Transcribed: 11/30/2007 17:05 AMK Procedure Note Rodney Clement MD - 11/30/2007 [facility] [address] [place], [place] [address] Admit Date: 11/30/2007 DEVAN SIMRAN G Sex: F Admit Prov: Shavonne JARAMILLO Date: 1955 Primary Care Prov: SHEREEN FERDINANDRaheem PERDOMO CMRN: [id number] Room: [facility] SSN: [address] [place] [address] IMAGING SERVICES Ordering Prov: N/A Interpretation CHEST, PA AND LATERAL 11/30/2007 History: Gastroparesis Findings: No infiltrate, pleural effusion or pneumothorax is present.Heart size, mediastinum and pulmonary vascularity are normal. Impression: No active pulmonary disease. . Dictated by: RODNEY CLEMENT 11/30/2007 17:04 Electronically signed by: RODNEY CLEMENT 11/30/2007 19:42 Transcribed: 11/30/2007 17:05 AMK Adelaide Jaramillo MD DIAGNOSTIC IMAGING ORDER KTAIE Final Result documented in this encounter Visit Diagnoses Diagnosis Gastroparesis documented in this encounter Care Teams Splicer Helper Relationship Specialty Start Date End Date Bonnie Amador NP [address] [place] [phone] PCP - General NURSE PRACTITIONER 04/24/17 documented as of this encounter
--- OUTSIDE RECORDS SUMMARY | 2024-09-01 20:17 | XMS_ITS | Encounter Summary ---
Author Organization [facility] Address 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 [place], [place] [address] Admit Date: 11/05/2007 SIMRAN PENDLETON Sex: F Admit Prov: TRISTIAN REED Date: 1955 Primary Care Prov: TRISTIAN REED CMRN: [id number] Room: [facility]: [address] [place] [address] IMAGING SERVICES Ordering Prov: N/A Accession Number: [id number] Interpretation CT ABDOMEN AND PELVIS WITH AND WITHOUT IV CONTRAST 11/05/2007 History: Hematuria. Findings: Precontrast images of the kidneys fail to reveal evidence for radiopaque stones in either kidney or ureter. Following the intravenous administration of contrast media, there is prompt function bilaterally. There is a small cyst in the upper pole of the right kidney. There is no mass, obstruction or inflammation. Collecting systems and ureters are normal in course and caliber. No filling defects are seen. Urinary bladder is unremarkable. The liver is of normal size without focal defect or biliary dilatation. The spleen is within normal limits. There is no pancreatic mass or inflammation. There is no lymphadenopathy. There is no pelvic mass or fluid collection. Impression: Normal study. . Dictated by: KAYDEN BAILEY 11/05/2007 16:07 Electronically signed by: KAYDEN BAILEY 11/06/2007 08:38 Transcribed: 11/05/2007 18:06 SJ Procedure Note Kayden Bailey MD - 11/06/[address] [address] Admit Date: 11/05/2007 SIMRAN PENDLETON Sex: F Admit Prov: TRISTIAN REED Date: 1955 Primary Care Prov: TRISTIAN REED CMRN: [id number] [id number] [facility] Ordering Prov: N/A Interpretation CT ABDOMEN AND PELVIS WITH AND WITHOUT IV CONTRAST 11/05/2007 History: Hematuria. Findings: Precontrast images of the kidneys fail to reveal evidencefor radiopaque stones in either kidney or ureter. Following theintravenous administration of contrast media, there is prompt functionbilaterally. There is a small cyst in the upper pole of the right kidney. There isno mass, obstruction or inflammation. Collecting systems and uretersare normal in course and caliber. No filling defects are seen. Urinarybladder is unremarkable. The liver is of normal size without focal defect or biliarydilatation. The spleen is within normal limits. There is no pancreatic mass or inflammation. There is no lymphadenopathy. There is no pelvic mass orfluid collection. Impression: Normal study. . Dictated by: KAYDEN BAILEY 11/05/2007 16:07 Electronically signed by: KAYDEN BAILEY 11/06/2007 08:38 Transcribed: 11/05/2007 18:06 SJ us Tristian Reed MD CT ORDERABLES Final Resul t * POC CREATININE (11/05/2007 2:55 PM CDT) CREATININE POC 0.9 0.6 - 1.3 mg/dL [facility] GFR, >60 >=60 mL/min/1.7 sq meter [facility] GFR >60 >=60 mL/min/1.7 sq meter [facility] Capillary blood specimen (specimen) 11/05/2007 2:55 PM CDT 11/05/2007 2:55 PM CDT us Tristian Reed MD POINT OF CARE TESTING Edite d INTERFACE SYSTEM Refer to clinic/hospital department [facility] CLIA# [id number] [address] [facility] [place] [address] documented in this encounter Visit Diagnoses Diagnosis Hematuria documented in this encounter Care Teams Arbor End Mainspring Former Relationship Specialty Start Date End Date Bonnie Amador NP [address] [place] [phone] PCP - General NURSE PRACTITIONER 04/24/17 documented as of this encounter
--- NOTE | 2024-09-01 20:38 | CTR_ITS ---
PROCEDURE INFORMATION: Exam: CT Abdomen And Pelvis With Contrast Exam date and time: 09/01/2024 9:29 PM Age: 69 years old Clinical indication: Nausea and vomiting; Abdominal pain; Localized; Right; Prior surgery; Surgery date: 6+ months; Surgery type: Full hysterectomy; C/O RT sided abd pain with n/v; Additional info: N/v R flank pain radiating to rlq TECHNIQUE: Imaging protocol: Computed tomography of the abdomen and pelvis with contrast. Radiation optimization: All CT scans at this facility use at least one of these dose optimization techniques: automated exposure control; mA and/or kV adjustment per patient size (includes targeted exams where dose is matched to clinical indication); or iterative reconstruction. Contrast material: OMNI 350; Contrast volume: 100 ml; Contrast route: INTRAVENOUS (IV); COMPARISON: CT abdomen pelvis w con* [id number] 09/03/2019 3:07 PM RADIATION DOSE METRICS: Total DLP (mGy-cm): 781.66 FINDINGS: Liver: Normal. No mass. Gallbladder and biliary ducts: Normal. No calcified stones. No ductal dilation. Pancreas: Normal. No ductal dilation. Spleen: Normal. No splenomegaly. Adrenal glands: Normal. No mass. Kidneys and ureters: Normal. No hydronephrosis. Stomach and bowel: Prominent the stomach and small bowel, please correlate for a gastroenteritis. Constipation. Diverticulosis without diverticulitis. Appendix: No evidence of appendicitis. Intraperitoneal space: Unremarkable. No free air. No significant fluid collection. Vasculature: Mesenteric, aortic and renal artery atherosclerotic calcifications. Lymph nodes: Unremarkable. No enlarged lymph nodes. Urinary bladder: Unremarkable as visualized. Reproductive: Unremarkable as visualized. Bones/joints: Unremarkable. No acute fracture. Soft tissues: Unremarkable. CT/CT abdomen pelvis w con* [id number] IMPRESSION: 1. Prominent the stomach and small bowel, please correlate for a gastroenteritis. 2. Constipation. 3. Mesenteric, aortic and renal artery atherosclerotic calcifications. 4. Diverticulosis without diverticulitis.
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
[2024-09-01] MEDS: acetaminophen 1,000 MG/100 ML PIGGYBACK 400 MG IV (20:58)
[2024-09-01] MEDS: ondansetron 2 mg/ML SDV 2 mL 4 MG IVP (20:58)
[2024-09-01 21:06] LABS: Hematocrit 38.1 % (36-47); Hemoglobin 12.80 g/dL (11.27-16.99); Mean Corpuscular HGB Conc 33.6 g/dL (30-55); Mean Corpuscular Hemoglobin 31.7 pg (27-33); Mean Corpuscular Volume 94.3 fl (85-98); Nucleated Red Blood Cells % 0 %; Platelet Count 191 10^3/cmm (157-399); Red Blood Count 4.04 10^6/uL (3.85-5.65); White Blood Count 5.28 10^3/uL (3.29-11.43)
[2024-09-01 21:22] LABS: Alanine Aminotransferase 11 U/L (0-33); Albumin Level 4.1 g/dL (3.5-5.2); Alkaline Phosphatase 82 U/L (35-105); Anion Gap 18.7 (5-19); Aspartate Amino Transferase 19 U/L (0-32); Blood Urea Nitrogen 11 mg/dL (8-23); Calcium 8.9 mg/dL (8.5-10.5); Carbon Dioxide 23 mmol/L (22-29); Chloride 103 mmol/L (98-107); Creatinine Clr Calc Pharmacy 72.8123; Globulin 2.8 g/dL (1.3-4.6); Glucose 132 mg/dL (65-115); Osmolality Calculated 293 mOsm/kg (285-295); Potassium 3.7 mmol/L (3.5-5.1); Sodium 141 mmol/L (136-145); Total Protein 6.9 g/dL (6.6-8.7)
[2024-09-01] MEDS: iohexol 350 mg/mL 500 mL Btl (per mL) IV (21:30)
[2024-09-01 22:31] LABS: Glucose Urine UA Negative (Normal); Nitrate Urine Negative (Negative)
[2024-09-01 23:13] LABS: Add Urine Microscopic? YES
[2024-09-01 23:17] LABS: Specific Gravity, Urine 1.045 (1.005-1.030)
[2024-09-02 01:05] VITALS: BP 147/61; PULSE 60; RESP 17; O2SAT 95
== END 2024-09-02 01:06 | disposition home or self-care (01) ==
PROVIDERS: Emergency Provider Student in an Organized Health Care Education/Training Program; PCP Nurse Practitioner
DX: M54.50 Low back pain, unspecified (principal); R11.2 Nausea with vomiting, unspecified
CPT/HCPCS: 74177; 80053; 81001; 85025; 93005; 96374; 96375; 99285; J0131; J2405; J7030

== ENCOUNTER → 2024-09-05 15:31 | Outpatient (BNVA) | payer MEDICARE, OTHER, SELFPAY | PROVIDERS: PCP Nurse Practitioner; Visit Provider Internal Medicine | DX: R07.9 Chest pain, unspecified (principal); M79.604 Pain in right leg; M79.605 Pain in left leg; I10 Essential (primary) hypertension; I47.19 Other supraventricular tachycardia; E78.2 Mixed hyperlipidemia; G47.33 Obstructive sleep apnea (adult) (pediatric); E03.8 Other specified hypothyroidism; I25.10 Atherosclerotic heart disease of native coronary artery without angina pectoris | CPT/HCPCS: 99214 ==

== ENCOUNTER 2024-10-03 15:27 | Outpatient (CLI) | payer MEDICARE, OTHER, SELFPAY ==
--- NOTE | 2024-10-03 15:20 | MM_ITS ---
WS: [id number] BILATERAL SCREENING DIGITAL TOMOSYNTHESIS MAMMOGRAM WITH CAD HISTORY: SCREENING COMPARISON: 01/31/2023, 02/24/2016 Bilateral CC and MLO views with tomosynthesis and synthetic mammography submitted. Computer aided detection analyzed. Breast composition: The breasts are extremely dense, which lowers the sensitivity of mammography. No suspicious masses, microcalcifications or architectural distortion. There is a focal area of distortion seen best on the LEFT MLO projection in the posterior superior breast. Asymmetry has been present since 2022 with no interval change. No associated mass. Benign calcifications in each breast. MM/MM scr tomosynthesis [id number] IMPRESSION: BI-RADS: 2 - Benign FOLLOW UP: 1 Year Follow-up
== END 2024-10-03 15:28 | disposition home or self-care (01) ==
LOC: MOBLMAM 15:29
PROVIDERS: PCP Nurse Practitioner; Visit Provider Nurse Practitioner
DX: Z12.31 Encounter for screening mammogram for malignant neoplasm of breast (principal); R92.343 Mammographic extreme density, bilateral breasts; R92.1 Mammographic calcification found on diagnostic imaging of breast
CPT/HCPCS: 77063; 77067

== ENCOUNTER → 2024-10-09 15:51 | Outpatient (BNVA) | payer MEDICARE, OTHER, SELFPAY | PROVIDERS: PCP Nurse Practitioner; Visit Provider Nurse Practitioner | DX: E03.8 Other specified hypothyroidism (principal); E78.49 Other hyperlipidemia; E11.9 Type 2 diabetes mellitus without complications | CPT/HCPCS: 80061; 83721; 84439; 84443; 84480 ==

== ENCOUNTER → 2024-10-23 12:59 | Outpatient (BNVA) | payer MEDICARE, SELFPAY | PROVIDERS: PCP Nurse Practitioner; Visit Provider Internal Medicine | DX: E03.8 Other specified hypothyroidism (principal); I25.10 Atherosclerotic heart disease of native coronary artery without angina pectoris; F51.04 Psychophysiologic insomnia; E78.49 Other hyperlipidemia; E11.9 Type 2 diabetes mellitus without complications | CPT/HCPCS: 99214 ==

== ENCOUNTER → 2024-10-24 12:49 | Outpatient (BNVA) | payer MEDICARE, SELFPAY | PROVIDERS: PCP Nurse Practitioner; Referring Provider Pain Medicine Interventional Pain Medicine; Visit Provider Specialist | DX: G89.4 Chronic pain syndrome (principal); M47.9 Spondylosis, unspecified; M54.10 Radiculopathy, site unspecified; M79.604 Pain in right leg; R20.0 Anesthesia of skin; R20.2 Paresthesia of skin | CPT/HCPCS: 95909 ==

== ENCOUNTER → 2024-10-28 11:37 | Outpatient (BNVA) | payer MEDICARE, SELFPAY | PROVIDERS: PCP Nurse Practitioner; Visit Provider Internal Medicine | DX: Z01.818 Encounter for other preprocedural examination (principal); R35.0 Frequency of micturition; R00.1 Bradycardia, unspecified; R94.31 Abnormal electrocardiogram [ECG] [EKG] | CPT/HCPCS: 93005 ==

== ENCOUNTER 2024-11-18 09:17 | Outpatient (CLI) | payer MEDICARE, SELFPAY ==
--- NOTE | 2024-11-18 09:36 | ECG_ITS ---
[email or web address] Date: 2024-11-18 Pat Name: Simran Pendleton Department: Room: Gender: Female Wealth Management Director: : 1955 Requested By: Rocky Canada Order Number: [id number] Angelito MD: Rocky Canada M.D. Interpretive Statements LEXISCAN SESTAMIBI STRESS TEST Procedure: At the baseline, the blood pressure was 161/81 mmHg with a heart rate of 62 bpm. The electrocardiogram showed normal sinus rhythm, normal axis with normal ST and T's. The Lexiscan was infused over a period of 20 seconds. A total of 0.4 mg of Lexiscan was infused. The stress phase was continued for a total of 5 minutes. Heart rate was at the end of stress phase was 72 bpm and a blood pressure of 183/82 mmHg. The EKG at the peak infusion revealed normal sinus rhythm with no significant ST-T wave changes. Sestamibi was injected 20 seconds after the Lexiscan infusion. Blood pressure at the end of recovery phase was 184/89 mmHg with a heart rate of 78 bpm. Conclusion: 1. Normal EKG response to Lexiscan infusion 2. No Lexiscan induced chest pain or cardiac arrhythmia. 3. Normal blood pressure and heart rate response. 4. Sestamibi/sestamibi perfusion scan pending; see separate report. Electronically Signed On 12-01-2024 10:05:40 CDT by Rocky Canada M.D. [email or web address]
--- NOTE | 2024-11-18 09:36 | NMCV_ITS ---
NM carolyn perf SPECT r/s* [id number] Simran Pendleton Age: 69 Gender: F : 1955 Exam Date: 11/18/2024 10:25 Ordering Phys: Rocky Canada M.D ([email or web address]) Technologist: LORI Miner Exam Location: [facility] Indications: cp STRESS TEST Please see [facility] stress [facility] IMAGE PROTOCOL Rest/Stress 1 Lexiscan Day Radiopharmaceutical Dose (mCi) Administration Site Administered by Rest: Tc-99m 10.2 IV LORI Miner Sestamibi Stress:Tc-99m 32.6 IV LORI Hannah Sestamibi Rest: 18-Nov-2024 60 Discovery 630 Stress: 18-Nov-2024 30 Discovery 630 0.4mg Lexiscan. Images obtained in supine and prone position. SPECT RESULTS Technical Quality: Good Raw Data Analysis: Normal Image Corrections: No attenuation or motion correction applied Summed Stress Score: 7 Summed Rest Score: 0 Summed Difference Score: 7 PERFUSION FINDINGS There is a medium sized area of reversible perfusion defect seen in apical wall. This is consistent with medium sized area of ischemia in LAD territory. Small sized of partially reversible perfusion defect seen in the apical lateral and apical inferior lutz. FUNCTIONAL RESULTS (calculated via Gated SPECT) Stress Image LV EF (%): 72 Stress EDV (mL):76 TID: 0.8 Stress ESV (mL):21 FUNCTIONAL FINDINGS: There is normal left ventricular systolic function. IMPRESSIONS 1. Abnormal myocardial perfusion imaging with medium sized area of ischemia seen in the LAD territory. 2. Small area of prior infarct with small to medium sized area of kit-infarct ischemia seen in circumflex artery territory/ RCA territory. 3. LV systolic function is normal Rocky Canada MD (Electronically Signed) Final Date: 18 November 2024 12:27 S
[2024-11-18 09:37] VITALS: BMI 32.4
[2024-11-18 11:23] VITALS: BP 184/89; PULSE 71
== END 2024-11-18 09:18 | disposition home or self-care (01) ==
LOC: CDL 09:21
PROVIDERS: PCP Nurse Practitioner; Visit Provider Internal Medicine
DX: R07.9 Chest pain, unspecified (principal); R06.02 Shortness of breath; R93.1 Abnormal findings on diagnostic imaging of heart and coronary circulation
CPT/HCPCS: 36415; 78452; 93017; 96374; A9500; J2785

== ENCOUNTER 2024-11-29 09:33 | Outpatient (CLI) | payer MEDICARE, OTHER, SELFPAY ==
[2024-11-29] VITALS (45 sets, daily range): BP systolic 109–152; BP diastolic 53–88; PULSE 45–65; RESP 12–24; O2SAT 75–100; BMI 32.4
--- NOTE | 2024-11-29 10:00 | XACV_ITS ---
Exam Room: 2 Ht: 165 cm Wt: 88 kg BSA: 2.05 m2 Gender: Female : 1955 Any Known Allergies: Other Exam Priority: Routine Procedure(s): Procedure Description: Diagnostic procedure Procedure Description: PCI procedure Procedure Description: Drug Eluting Coronary Stent Procedure Description: PTCA Procedure Description: Miscellaneous Procedure Description: Angio-Seal Procedure Description: ACT Procedure Description: Coronary Angiography Procedure Description: Pressure Wire Diagnostic Cath Status: Elective Diagnostic Findings * INDICATION: Worsening angina/abnormal stress test. * Left Main has no significant disease. * Circumflex has patent prior stent. * Mid Left Anterior Descending: Severe 80% stenosis, [place]: 3 flow. * Mid Right Coronary Artery: Moderate 40-50% stenosis, [place]: 3 flow. * Coronary angiography shows right dominance. PCI Status: Elective PCI Indication: Other Interventional Findings * Procedure detail: JR4 guide catheter was used to engage the RCA. We performed IFR which was nonischemic with a value of 0.99. We then turned our attention to severe mid LAD stenosis. XB 3.5 guide catheter was used to engage the left main artery. We predilated the mid LAD stenosis with 2.5 x 15 mm semicompliant balloon. This was followed by placement of 2.5 x 30 mm resolute [place] drug-eluting stent. We postdilated the stent with 2.5 x 15 mm NC balloon. At this time final angiogram was performed that showed excellent stent expansion and no residual stenosis. Guidewire and guide catheter were removed. Patient left the Gui Developer in a stable condition. * Mid Left Anterior Descendin% stenosis treated with a AB TREK 2.50X15 RX BALLOON, OTILIA R ANGELIA 2.5X30 BETHANY, and OTILIA PANTOJA EUPHORA RX [id number] BALLOON. 0% residual stenosis, [place]: 3 flow. Conclusions 1. Severe mid LAD stenosis s/p PCI with 1 stent. Moderate mid RCA stenosis, iFR is non-ischemic. 2. Mid Left Anterior Descending was treated with a Balloon, Drug Eluting Stent, and Balloon. Recommendations * Dual antiplatelet therapy with aspirin and plavix for atleast 1 year. * Outpatient cardiology follow up in 4 weeks. Interventional RX Recommendation: PCI w/o planned CABG Diagnostic RX Recommendation: PCI w/o planned CABG Anticoagulation: Heparin Pressures Phase:Rest AO : 115 / 67 ( 88 ) @ 12:06:00 PM 136 / 73 ( 98 ) @ 12:18:00 PM 131 / 74 ( 97 ) @ 12:24:00 PM 162 / 88 ( 120 ) @ 12:31:00 PM 154 / 85 ( 114 ) @ 12:42:00 PM Clinical Evaluation EBL: 5mL-10mL Procedural Details Procedure Consent Obtained. Pre-Procedure Time Out. Identified patient by full name and date of as verbalized by the patient/guarantor. Does the consent match the physician's order: Yes. Accurate & Complete Informed Consent: Yes. Inpatient/Outpatient History & Physical on Chart: Yes. If H&P is completed, is and addenduem needed: No; If yes, is the addendum complete: N/A. Visualize and Verify Site with Patient/Guarantor: N/A. Relevant Radiology Images available: Yes. Pre-op teaching completed and patient verbalized understanding. The risks, benefits, and alternatives of sedation and/or procedure were discussed by physician. The patient agrees to continue. Procedure started. Current Diagnosis : Chest Pain. [facility] Clinical Fraility Score: 5: Mildly Frail. Gui Developer Indications: Worsening Angina. Chest Pain Symptom Assessment: Typical Angina Symptoms. Correct patient, site and procedure confirmed by cath team. Current diagnosis: Chest Pain. IV Site on Arrival: 20 gauge in the right anticubital. IV Fluids: 0.9% NaCl at KVO. 0 mL infused prior to construction craft laborer. Pre Procedural Pulses: right dorsalis pedis was 2+. Pre Procedural Pulses: left dorsalis pedis was Doppled. Pre Procedural Pulses: right posterior tibial was 2+. Pre Procedural Pulses: left posterior tibial was 1+. Pre Procedural Pulses: bilateral radial was 1+. Oxygen started at 2liters/min via nasal canula. bilateral groins was prepped with chloroprep then draped in the usual sterile fashion. Baseline sample Acquired. HR: 46 BPM. Physician arrived. Physician scrubbed in. Immediate Pre-Procedure Time Out. Correct Patient: Yes; Correct Procedure: Yes; Correct Site: Yes; Correct Patient Position: Yes; Correct Supplies: Yes; Dried Flammable Prep: Yes; Blood Products Available: N/A;. Lidocaine 1% infiltrated to the right groin. Arterial access obtained with micropuncture set. A 5 kenyan JL4 catheter in over wire. Multiple views taken of left coronary artery. Catheter removed over the standard wire. A 5 kenyan JR4 catheter in over wire. Multiple views taken of right coronary artery. Catheter removed over the standard wire. 6 kenyan JR 4 guide catheter was inserted over the wire. Melba Pyle RT(R) was relieved by Sydnee Celestin RN, FLOWERS SALESPERSON as monitoring person. iFR guidewire was advanced through the guide catheter to lesion in the mid RCA. iFR of the Mid RCA = 0.99. iFR wire out. 6 kenyan XB 3.5 guide catheter was inserted over the wire. Runthrough guidewire was advanced through the guide catheter to lesion in the mid LAD. Inflation number : 1 A AB TREK 2.50X15 RX BALLOON was prepped and advanced across the Mid LAD , then inflated to 8 LORAINE for 0:13 seconds. Inflation number: 2 The AB TREK 2.50X15 RX BALLOON was reinflated across the Mid LAD, to 10 LORAINE for 0:08 seconds. Balloon out. Results checked. Inflation Number : 3 A MDT R ANGELIA 2.5X30 BETHANY -Lot Number# [id number] Exp. 20 was prepped and advanced across the Mid LAD. The stent was deployed at 12 LORAINE for 0:17 seconds. Stent balloon out over wire. Results checked. Inflation number : 4 A MDT NC EUPHORA RX [id number] BALLOON was prepped and advanced across the Mid LAD , then inflated to 14 LORAINE for 0:18 seconds. Inflation number: 5 The MDT NC EUPHORA RX 2.16V33SW BALLOON was reinflated across the Mid LAD, to 14 LORAINE for 0:08 seconds. Balloon out. Wire out to reshape. Runthrough guidewire was advanced through the guide catheter lesion in the diaganol. AB Mini Trek 2.0mm x 12mm balloon in, unable to cross, removed. Wire out. ACT drawn. Results out of range HI. Guide catheter out OTW. A Right femoral angiogram was performed to determine safe placement of closure device. A Angio-Seal VIP (St. Ortega) was successful obtaining hemostatsis at the Right Femoral artery insertion site. Lot # [id number] Exp. 07.20.03. Post Procedure: Pulses reassessed and unchanged. PERRLA. Strong, equal hand addiction treatment counselor bilaterally. No VTE prophylaxis required. Medication's Wasted: Heparin = 2000 units. Medication's Wasted: Other = Fentanyl 50mcg. Total IV fluids: 65 mL. PCI Indication: CAD (without ischemic symptoms). Post-op diagnosis: Normal iFR of Mid RCA, BETHANY to Mid LAD x 1. Complications: none. Estimated blood loss: 5mL-10mL. Responsiveness - Normal response to verbal stimuli; alert and oriented, PERRLA. Airway - Unaffected, no intervention required; spontaneous ventilation. Circulation: W/N/L, pulses unchanged. Nausea/Vomiting: No. Procedure completed. Patient transferred by bed to ICU. Vital chart was stopped. Access Site Site: Right Femoral artery Sheath Size: 6 Fr Hemostasis Method: Angio-Seal VIP (St. Ortega) Hemostasis Success: Successful Procedure Medications Start: 11:01 AM Stop: 11: AM Medication: Versed Amount: 1 mg Route: I.V. Start: 11:02 AM Stop: 11:02 AM Medication: Fentanyl Amount: 25 mcg Route: I.V. Start: 11:05 AM Stop: 11:05 AM Medication: Versed Amount: 1 mg Route: I.V. Start: 11:08 AM Stop: :08 AM Medication: Heparin Amount: 7000 units Route: I.V. Start: 11:20 AM Stop: :20 AM Medication: Heparin Amount: 1000 units Route: I.V. Start: 11:20 AM Stop: 11:20 AM Medication: Versed Amount: 1 mg Route: I.V. Start: 11:20 AM Stop: :20 AM Medication: Fentanyl Amount: 25 mcg Route: I.V. Start: 11:34 AM Stop: 11:34 AM Medication: Versed Amount: 1 mg Route: I.V. Start: 11:01 AM Stop: 11:01 AM Medication: Fentanyl Amount: 50 mcg Route: I.V. Start: 11:38 AM Stop: 11:38 AM Medication: Fentanyl Amount: 25 mcg Route: I.V. Start: 11:45 AM Stop: 11:45 AM Medication: Heparin Amount: 1000 units Route: I.V. Start: 11:48 AM Stop: 11:48 AM Medication: Fentanyl Amount: 25 mcg Route: I.V. Start: 11:55 AM Stop: 11:55 AM Medication: Plavix Amount: 600 mg Route: P.O. I, the attending physician, have reviewed and verified all procedure medications. Yes, all medications given per verbal order History/Risk Factors Hypertension: Yes Dyslipidemia: Yes Peripheral Arterial Disease (PAD): No Myocardial Infarction (CA): Yes Obesity: No Renal Disease: No Tobacco Use: Never Prior Interventions PCI: Yes CABG: No Valve Surgery: No Date of PCI: 12/25/2022 Report Signatures Finalized by Rocky Canada MD on 12/01/2024 09:35 AM
[2024-11-29 10:09] LABS: Hematocrit 36.0 % (36-47); Hemoglobin 12.20 g/dL (11.27-16.99); Mean Corpuscular HGB Conc 33.9 g/dL (30-55); Mean Corpuscular Hemoglobin 31.7 pg (27-33); Mean Corpuscular Volume 93.5 fl (85-98); Nucleated Red Blood Cells % 0 %; Platelet Count 210 10^3/cmm (157-399); Red Blood Count 3.85 10^6/uL (3.85-5.65); White Blood Count 6.39 10^3/uL (3.29-11.43)
[2024-11-29 10:25] LABS: Anion Gap 20.3 (5-19); Blood Urea Nitrogen 14 mg/dL (8-23); Calcium 8.8 mg/dL (8.5-10.5); Carbon Dioxide 22 mmol/L (22-29); Chloride 102 mmol/L (98-107); Creatinine Clr Calc Pharmacy 71.8756; Glucose 120 mg/dL (65-115); Osmolality Calculated 292 mOsm/kg (285-295); Potassium 4.3 mmol/L (3.5-5.1); Sodium 140 mmol/L (136-145)
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
--- NOTE | 2024-11-29 13:51 | PM.PROC ---
Procedure Note: Date of procedure: 11/29/24 Pre-procedure diagnosis: Worsening angina/ abnormal stress test Post-procedure diagnosis: other (Severe mid LAD stenosis s/p PCI with 1 stent. ) Procedure: Severe mid LAD gnosis with post PCI with 1 stent. Moderate mid RCA stenosis status post IFR that is normal. Dual antiplatelet therapy with aspirin and Plavix. Performing Provider: Rocky Canada Estimated blood loss (mL): 10 Complications: None Condition: stable Disposition: ICU Coding Level of Care Code Acute Code for Miladis Fletcher
--- NOTE | 2024-11-29 14:45 | PC.NURSE ---
Transfer: Received patient from laboratory equipment cleaner staff at approximately 1200. Alert and oriented to person, place, time, and situation. BP: 129/84, HR: 56, SPO2: 97%, RR: 19. No sheath, angioseal placed in optical laboratory manager. site is dressed with tegaderm. Unremarkable, no drainage, no hematoma. Pedal pulses strong. Nurse educated patient on results of procedure, reportable signs of complications. Instructed on need to lay flat until 4pm. Assisted patient onto a bedpan. She then urinated approximately 500mL.
[2024-11-29] MEDS: SACUBITRIL/VALSARTAN 49-51 TABLET 1 EACH PO (18:33)
--- NOTE | 2024-11-29 19:11 | PC.NURSE ---
Shift Summary: Uneventful shift. Patient rested in bed for most of the day. After bedrest was compelted, she was able to get up to a bedside commode with no issues. No hemtoma formation. No bleeding. Started on home dose of hydrocodone.
[2024-11-29] MEDS: HYDROcodone-acetaminophen 7.5-325 mg Tablet 1 TAB PO (20:00)
[2024-11-30] VITALS (15 sets, daily range): BP systolic 97–152; BP diastolic 56–94; PULSE 52–71; RESP 13–16; TEMP 36.2–36.6; O2SAT 92–97; BMI 32.6
[2024-11-30] MEDS: HYDROcodone-acetaminophen 7.5-325 mg Tablet 1 TAB PO (03:57)
[2024-11-30] MEDS: SACUBITRIL/VALSARTAN 49-51 TABLET 1 EACH PO (04:28)
--- NOTE | 2024-11-30 07:18 | PC.NURSE ---
Report received from MADELIN Daugherty. Patient resting in bed, no reports of pain or discomfort. Dressing clean/dry/intact to right groin with no bleeding or hematoma noted.
--- NOTE | 2024-11-30 08:00 | PM.DCS ---
Discharge Providers Date of Admission: 11/30/2024 Date of Discharge: November 30, 2024 Attending Provider at Admission: Rocky Canada MD Attending Provider at Discharge: Rocky Canada M.D Primary Care Provider: ADRIEN Archer Reason for Visit Reason for Visit: Left heart cath with PCI Brief History: 69-year-old woman with past medical history of coronary artery disease, hyperlipidemia who has been having worsening chest pain symptoms. Had a stress test performed that showed medium sized area of ischemia in LAD territory and abnormality in the RCA/circumflex arteries as well. Plan for coronary angiogram with possible PCI. Hospital Course Hospital Course Coronary angiogram demonstrated moderate mid RCA stenosis. iFR was normal. Mid LAD had severe stenosis. This is also an area of abnormality on stress test. We proceeded with PCI with 1 stent. Patient stayed overnight and was stable. Was discharged home in a stable condition on dual antiplatelet therapy. Physical Exam Narrative: GENERAL: Patient is alert, awake and oriented x3. [] NECK: No jugular vein distension. [] HEENT: No cyanosis. No icterus. No pallor. [] HEART: Regular S1 and S2. No murmur, rub or gallop. [] LUNGS: Clear to auscultate bilaterally. [] CENTRAL NERVOUS SYSTEM: Grossly nonfocal. [] EXTREMITIES: Lower extremities with no edema bilaterally. Discharge Data Studies Completed and Pending Pending at discharge Category Date Time Status BUTTON BREAKER OPERATOR request for service Routine Exams 11/29/24 10:00 Taken Laboratory Results WBC 6.39 10^3/uL (3.29-11.43) 11/29/24 10:00 RBC 3.85 10^6/uL (3.85-5.65) 11/29/24 10:00 Hgb 12.20 g/dL (11.27-16.99) 11/29/24 10:00 Hct 36.0 % (36-47) 11/29/24 10:00 MCV 93.5 fl (85-98) 11/29/24 10:00 MCH 31.7 pg (27-33) 11/29/24 10:00 MCHC 33.9 g/dL (30-55) 11/29/24 10:00 RDW 13.0 % (12.1-15.1) 11/29/24 10:00 Plt Count 210 10^3/cmm (157-399) 11/29/24 10:00 MPV 10.1 fL (7.4-10.4) 11/29/24 10:00 Neut % (Auto) 36.1 % 11/29/24 10:00 Lymph % (Auto) 46.9 % 11/29/24 10:00 Maries % (Auto) 8.3 % 11/29/24 10:00 Eos % (Auto) 7.4 % 11/29/24 10:00 Baso % (Auto) 1.1 % 11/29/24 10:00 Neut # (Auto) 2.31 10^3/uL (1.8-7.7) 11/29/24 10:00 Lymph # (Auto) 3.0 10^3/uL (0.8-4.8) 11/29/24 10:00 Maries # (Auto) 0.5 10^3/uL (0.2-0.9) 11/29/24 10:00 Eos # (Auto) 0.5 10^3/uL (0.0-0.8) 11/29/24 10:00 Baso # (Auto) 0.1 10^3/uL (0.0-0.1) 11/29/24 10:00 Nucleated RBC % (auto) 0 % 11/29/24 10:00 Nucleated RBCs # 0.0 /100WBC 11/29/24 10:00 Sodium 140 mmol/L (136-145) 11/29/24 10:00 Potassium 4.3 mmol/L (3.5-5.1) 11/29/24 10:00 Chloride 102 mmol/L (98-107) 11/29/24 10:00 Carbon Dioxide 22 mmol/L (22-29) 11/29/24 10:00 Anion Gap 20.3 (5-19) H 11/29/24 10:00 BUN 14 mg/dL (8-23) 11/29/24 10:00 Creatinine 0.8 mg/dL (0.5-0.9) 11/29/24 10:00 GFR Calculation 70.9 mL/min (90-130) L 11/29/24 10:00 Glucose 120 mg/dL (65-115) H 11/29/24 10:00 Calculated Osmolality 292 mOsm/kg (285-295) 11/29/24 10:00 Calcium 8.8 mg/dL (8.5-10.5) 11/29/24 10:00 Vitals Last Vital Signs Temp 97.8 F 11/30/24 04:30 Pulse 68 11/30/24 06:00 Resp 14 11/30/24 06:00 BP 121/56 11/30/24 06:00 Pulse Ox 93 11/30/24 06:00 O2 Del Method Room Air 11/30/24 06:00 Discharge Plan Discharge Patient Disposition: Home Prescriptions: New clopidogrel 75 mg Tablet 75 mg PO DAILY Qty: 90 3RF Continued diltiazem HCl [Cardizem CD] 180 mg capsule,extended release 24hr 180 mg PO QAM Qty: 30 5RF Rx Instructions: stop Norvasc 5mg methocarbamol 750 mg tablet 750 mg PO .2 times day PRN (Reason: muscle pain) Qty: 180 1RF Rx Instructions: dose change 2 time day furosemide [Lasix] 20 mg tablet 20 mg PO QAM PRN (Reason: edema) Qty: 30 2RF hydrocodone-acetaminophen 7.5-325 mg tablet 1 tab PO Q8H PRN (Reason: Pain, Moderate) diclofenac sodium [Arthritis Pain (diclofenac)] 1 % gel 2 g topical QID PRN (Reason: Pain) Rx Instructions: apply to single elbow, wrist or hand; for hand includes palm/fingers/back of hand levothyroxine [Tirosint] 100 mcg capsule See Rx Instructions .ROUTE .COMPLEX Qty: 90 1RF Dose Instruction: TAKE ONE CAPSULE BY MOUTH DAILY Rx Instructions: 1 capsule Monday through Monday and none on Monday liothyronine 5 mcg tablet See Rx Instructions .ROUTE DAILY Qty: 90 1RF Dose Instruction: TAKE ONE TABLET BY MOUTH DAILY before LUNCH Rx Instructions: TAKE ONE TABLET BY MOUTH DAILY before LUNCH daily; albuterol sulfate 2.5 mg /3 mL (0.083 %) solution for nebulization 2.5 mg inhalation Q4H PRN (Reason: shortness of breath or wheezing) Qty: 75 2RF albuterol sulfate 90 mcg/actuation HFA aerosol inhaler 2 puff INHALATION Q6H PRN (Reason: shortness of breath or wheezing) 30 Days Qty: 6.7 5RF Entresto 49-51 mg tablet 1 tab PO BID Qty: 60 5RF quetiapine 200 mg tablet 600 mg PO .at bedtime PRN (Reason: for sleep ) Qty: 270 1RF Breyna 80-4.5 mcg/actuation HFA aerosol inhaler 2 puff INHALATION Q12H Qty: 10.3 5RF mirabegron [Myrbetriq] 50 mg tablet extended release 24 hr 50 mg PO Q24H rmpmycxxhtwktua-skeuujsjw-ZH [Bromfed DM] 2-30-10 mg/5 mL syrup 5 ml PO Q6H PRN (Reason: cold symptoms) Qty: 118 0RF atenolol 25 mg tablet 25 mg PO DAILY Qty: 90 3RF triamcinolone acetonide 0.1 % ointment 1 applic topical TID PRN (Reason: Itching) Qty: 30 0RF Rx Instructions: arms and hands icosapent ethyl 1 gram capsule 2 g PO BID Qty: 360 1RF Repatha SureClick 140 mg/mL pen injector See Rx Instructions .ROUTE .COMPLEX Qty: 2 1RF Dose Instruction: Inject ONE pen UNDER THE SKIN EVERY TWO weeks Rx Instructions: Inject ONE pen UNDER THE SKIN EVERY TWO weeks aspirin 81 mg Tablet,Delayed Release (Dr/Ec) 81 mg PO DAILY Qty: 90 3RF ondansetron 4 mg tablet,disintegrating 4 mg PO Q8H PRN (Reason: nausea and vomiting) Qty: 30 0RF Discharge Order = DC NOW: Discharge Order (Routine); Ordered 11/30/24 Ordered By: Rocky Canada Referrals: Rocky Canada M.D [Physician, Cardiology] - 3 weeks Patient Instructions: Clopidogrel (By mouth) (Plavix) Activity Restrictions/Additional Instructions: Please call Dr. Canada's office to schedule a follow-up in 3 weeks, if you do not hear from his office. Print Language: Hong Konger Discharge Date/Time: 11/30/24 09:57 Discharge Attestations Time Spent in Discharge Care*: less than 30 min Quality Metrics Clinical Quality Measures [ No reported AMI, CVA or VTE this stay] Coding Level of Care Code Acute Code for Chg Fwd
== END 2024-11-30 09:57 | disposition home or self-care (01) ==
LOC: CCL 09:36 → ICU 12:18
PROVIDERS: PCP Nurse Practitioner; Visit Provider Internal Medicine
DX: I25.118 Atherosclerotic heart disease of native coronary artery with other forms of angina pectoris (principal); E78.5 Hyperlipidemia, unspecified; I25.2 Old myocardial infarction; Z79.891 Long term (current) use of opiate analgesic; I11.0 Hypertensive heart disease with heart failure; I50.30 Unspecified diastolic (congestive) heart failure; J45.909 Unspecified asthma, uncomplicated; Z87.891 Personal history of nicotine dependence; E03.9 Hypothyroidism, unspecified; G47.33 Obstructive sleep apnea (adult) (pediatric); F41.8 Other specified anxiety disorders; M79.7 Fibromyalgia; Z79.01 Long term (current) use of anticoagulants; Z79.82 Long term (current) use of aspirin
CPT/HCPCS: 36415; 80048; 85025; 85347; 93454; 93571; 99152; 99153; C1725; C1760; C1769; C1874; C1887; C1894; C9600; G0269; J0461; J1644; J2250; J3010; J3490; J7030; J9999; Q0163; Q9967

== ENCOUNTER 2024-12-01 21:05 | Emergency (ER) | payer MEDICARE, OTHER, SELFPAY ==
--- OUTSIDE RECORDS SUMMARY | 2014-02-19 07:35 | XMS_ITS | Continuity of Care Document ---
Author Organization [facility] Address [address] [place] [address] Phone Care Team Providers [employer] Specialist Name Role Phone Unavailable Unavailable Unavailable Allergies, Adverse Reactions, Alerts Substance Reaction Status Criticality prednisone dizziness, vomtiing Active No Infor mation HYDROMORPHONE HCL vomiting Active No Informa tion DONEPEZIL HCL vomiting Active No Information metronidazole rash Active No Information ESCITALOPRAM OXALATE dry mouth Active No Info rmation ESCITALOPRAM OXALATE rash , hives Active No Info rmation tramadol hives Active No Information Penicillins rash , hives Active No Information Sulfa (Sulfonamide Antibiotics) hives, sob Active No Information Medications Medication Instructions Dosage Effective Dates (start - stop) Status Comments HYDROCODONE-ACETAMIN OPHEN (unknown strength) take 8 milliliter by oral route every 4 hours as needed for pain Not Available - Active LEVOTHYROXINE SODIUM (unknown strength) take 1 tablet by oral route every day Not Available - Active Ambien CR 12.5 mg tablet,extended release take 1 tablet by oral route every day at bedtime 12.5 MG - Active lisinopril 5 mg tablet take 1 tablet by oral route every day 5 MG - Active Procedures Procedure Date Flu Rapid Immunoas; Flu Rapid Immunoas; Offic/outpt E&m [facility] 5 Services provided in an urgent care cent er Advance Directives Directive Yes / No Effective Date File Name No Information Encounters Encounter Description Practice Location Reason(s) For Visit Diagnoses Date Provider Providers Copied on Encounter Offic/outpt E&m New Mod [facility], [address], [place], [id number], [place] tel:[phone] [facility] Thor dizziness (chief complaint) MyalgiaSinusitisE ustachian tube dysfunction 5 No Information Family History Family Member Type Diagnosis Age At Onset No Information Payers Payer name Insurance type Covered alliance party ID Authoriza tipayal(s) No Information Social History Type Description Quantity Date Captured Comments Alcohol Use Details No Caffeine Use Details Unknown Tobacco Use Status No Information Smoking Status No Information Non-Smoking Tobacco Use Details : No Details Available : No Details Available Sex Female Vital Signs Date / Time: Height Weight BMI Pulse Rate Blood Pressure Temperature Respiratory Rate Body Surface Area Head Circumference Head Circ. Percentile Wt./Rudi. Percentile BMI percentile Pulse Ox Inhaled Ox 2:20 PM 60 /min 149/79 mm[Hg] 98.40 F 16 /min Chief Complaint And Reason For Visit From encounter dated '02/19/2014 12:35'. dizziness (chief complaint) Reason For Referral Reason For Referral No Information Plan Of Treatment Date Type Action Status Referral Ordered: Flu Test (In house) ordered History Of Present Illness Encounter Date Complaint History Of Prese nt Illness No Information Functional Status Date Functional Assessmen t No Information Instructions Date Instruction Additional Infor mation No Information Assessments Type Assessment Date No Information Mental Status Date Cognitive Assessment Orientation - [place] ed to time, place, person, situation. Patient Care Teams Name Effective Dates (start - stop) Status Members No Information
--- OUTSIDE RECORDS SUMMARY | 2023-07-25 12:00 | XMS_ITS ---
Author Organization [facility] Address [address] [facility] [place] [address] Care Team Providers Care Idea Man Name Role Phone Bonnie Amador APRN Primary Care Provider Unav conniejose luis GEOVANNA MENDIETA [phone] REASON FOR VISIT 4-6 mo w/ ua/pvr Encounters Encounter Location Date Provider Diagnosis [facility], [facility] [address] [place] [facility] [place] [address] 07/25/2023 GEOVANNA MENDIETA Plan Of Treatment No Information Progress Notes * TOSIN PENDLETONADOB:1955 ( 69 yo F)Acc No.[id number]:07/25/2023 Progress Notes Patient: MARLINE TOLLIVER Provider: FLAKITA Baum :1955 A ge:68 Y S ex:Female Date:07/25/2023 Address[address] [place], [place] [id number] Pcp:Bonnie Amador APRN Subjective: * Chief Complaints: * 1 . 4-6 mo w/ ua/pvr. * Medical History: Objective: * Vitals: Assessment: Plan: * Treatment: * Billing Information: * Visit Code: * Procedure Codes: * Electronic signature of GEOVANNA MENDIETA APRN on 12/01/2024 at 09:14 PM CDT Sign off status: Pending * Provider: FLAKITA Buam Date: 0 07/25/2023 Generated for Therese navarro/Scott/eTransmitting on: 1 09:14 PM CDT
--- OUTSIDE RECORDS SUMMARY | 2024-06-05 10:00 | XMS_ITS ---
Author Organization [facility] Address [address] [place] [address] Care Team Providers Care Dope Sprayer Name Role Phone Nina Ordoñez Primary Care Provider Kwadwo Bales [phone] REASON FOR VISIT Screening Recall Medications Medication SIG (Take, Route, Frequency, Duration) Notes Start Date End Date Status Garlic *[facility]* Active Ambien *Pick strength-form from [facility] for eRX* Active Probiotic *[facility]* Active Amlodipine *Reorder from [facility] for eRx and Interaction Alerts* Active Vitamin D3 *[facility]* Active QUEtiapine Fumarate 25 MG Tablet 2 tablet at bedtime Orally Once a day Active Synthroid 112 MCG Tablet 1 tablet in the morning on an empty stomach Orally Once a day Active HYDROcodone-Acetamin ophen 7.5-325 MG Tablet 1 tablet as needed Orally every 6 hrs Active Hydrocodone Bitartrate 30 MG Capsule ER 12 Hour Abuse-Deterrent as directed Orally Active Losartan Potassium 50 MG Tablet 1 tablet Orally Once a day; Duration: 30 day(s) 09/07/2022 Active MiraLax 17 GM/SCOOP Powder 1 scoop mixed with 8 ounces of fluid Orally Once a day Active Hydrocil 95 % Packet 1 packet with 8 ounces of liquid as needed Orally Once a day Not-Taking Isosorbide Mononitrate 10 MG Tablet 1 tablet Orally Twice a day Active Nitroglycerin 0.3 MG Tablet Sublingual as directed Sublingual as needed Active Encounters Encounter Location Date Provider Diagnosis [facility] [address] [place] [address] 06/05/2024 Kwadwo Bales Plan Of Treatment No Information Progress Notes * MARLINE PENDLETON GDOB:1955 (69 yo F)Acc No.[id number]:06/05/2024 Progress Notes Patient: MARLINE TOLLIVER Provider: Raheem Bales APRN VP DIGITAL MARKETINGHARRIETT :1955 A ge:69 Y S ex:Female Date:06/05/2024 Address:[address] [place], [place] [id number] Pcp:Nina Ordoñez Subjective: * Chief Complaints: * S creening Recall * Medications: T akingMiraLax 17 GM/SCOOP Powder 1 scoop mixed with 8 ounces of fluid Orally Once a day Isosorbide Mononitrate 10 MG Tablet 1 tablet Orally Twice a day Nitroglycerin 0.3 MG Tablet Sublingual as directed Sublingual as needed QUEtiapine Fumarate 25 MG Tablet 2 tablet at bedtime Orally Once a day Synthroid 112 MCG Tablet 1 tablet in the morning on an empty stomach Orally Once a day HYDROcodone-Acetaminophen 7.5-325 MG Tablet 1 tablet as needed Orally every 6 hrs Hydrocodone Bitartrate 30 MG Capsule ER 12 Hour Abuse-Deterrent as directed Orally Losartan Potassium 50 MG Tablet 1 tablet Orally Once a day Vitamin D3 , Notes to Pharmacist: *Pick strength-form from [facility] for eRX*Garlic , Notes to Pharmacist: *Pick strength-form from [facility] for eRX*Ambien , Notes to Pharmacist: *Pick strength-form from [facility] for eRX*Probiotic , Notes to Pharmacist: *Pick strength-form from [facility] for eRX*Amlodipine , Notes to Pharmacist: *Reorder from [facility] for eRx and Interaction Alerts*Taking MiraLax 17 GM/SCOOP Powder 1 scoop mixed with 8 ounces of fluid Orally Once a day Taking Isosorbide Mononitrate 10 MG Tablet 1 tablet Orally Twice a day Taking Nitroglycerin 0.3 MG Tablet Sublingual as directed Sublingual as needed Taking QUEtiapine Fumarate 25 MG Tablet 2 tablet at bedtime Orally Once a day Taking Synthroid 112 MCG Tablet 1 tablet in the morning on an empty stomach Orally Once a day Taking HYDROcodone-Acetaminophen 7.5-325 MG Tablet 1 tablet as needed Orally every 6 hrs Taking Hydrocodone Bitartrate 30 MG Capsule ER 12 Hour Abuse-Deterrent as directed Orally Taking Losartan Potassium 50 MG Tablet 1 tablet Orally Once a day Taking Vitamin D3 , Notes to Pharmacist: *[facility]*Taking Garlic , Notes to Pharmacist: *[facility]*Taking Ambien , Notes to Pharmacist: *[facility]*Taking Probiotic , Notes to Pharmacist: *[facility]*Taking Amlodipine , Notes to Pharmacist: *[facility] and Interaction Alerts*Not-TakingHydrocil 95 % Packet 1 packet with 8 ounces of liquid as needed Orally Once a day Not-Taking Hydrocil 95 % Packet 1 packet with 8 ounces of liquid as needed Orally Once a day Billing Information: * Procedure Codes: Care Plan Details* * Electronic signature of Erick Bales APRN-BURLAP ROLL COVERER on 12/01/2024 at 09:12 PM CDT Sign off status: Pending * Provider: Raheem Bales APRN VP DIGITAL MARKETING-BC Date: 0 06/05/2024 Generated for Therese navarro/Scott/Willa on: 09:12 PM CDT
--- OUTSIDE RECORDS SUMMARY | 2024-07-20 16:00 | XMS_ITS ---
Author Organization [facility] Address [address] [place], [place] [address] Care Team Providers Care Ob/Gyn Name Role Phone Arnol Field MD Unavailable [phone] Migration, Provider Unavailable Unavailable Allergies Allergen (clinical drug ingredient) Drug/Non Drug Allergy documented on EMR Reaction Allergy Type Onset Date Status DARVOCET (uncoded) Unknown Allergy A ctive SULFA (uncoded) Unknown Allergy Acti ve pregabalin Lyrica Unknown Drug Allergy Active nitrofurantoin Nitrofurantoin Unknown Drug Allergy Active codeine Codeine Unknown Drug Allergy Active Penicillin Unknown Drug Allergy Active tramadol traMADol Unknown Drug Allergy Active Darvon Unknown Drug Allergy Active Effexor Unknown Drug Allergy Active [facility] Encounter Medications Medication SIG (Take, Route, Frequency, Duration) Notes Start Date End Date Status GABAPENTIN (NEURONTIN) *Please r jacque for potential replacement for e-prescription and drug interaction check* Active Lipitor *Please review a nd pick correct strength-formulati on from Medispan options. If intended option is not shown, discontinue and re-order from Quick Search* Active Calcium 600 + D *Please review a nd pick correct strength-formulati on from Medispan options. If intended option is not shown, discontinue and re-order from Quick Search* Active VITAMIN A AND D *Please review f or potential replacement for e-prescription and drug interaction check* Active Tirosint *Please review a nd pick correct strength-formulati on from Medispan options. If intended option is not shown, discontinue and re-order from Quick Search* Active Ambien ORALLY *Please review a nd pick correct strength-formulati on from Medispan options. If intended option is not shown, discontinue and re-order from Quick Search* Active Norvasc *Please review a nd pick correct strength-formulati on from Medispan options. If intended option is not shown, discontinue and re-order from Quick Search* Active HYDROcodone Bitartrate ER P.O. *Please review and pick correct strength-formulati on from Medispan options. If intended option is not shown, discontinue and re-order from Quick Search* Active LORazepam ORALLY *Please review a nd pick correct strength-formulati on from Medispan options. If intended option is not shown, discontinue and re-order from Quick Search* Active Aspirin EC ORALLY; Duration: 30 DAY(S) *Please review and pick correct strength-formulati on from Medispan options. If intended option is not shown, discontinue and re-order from Quick Search* Active Tylenol ORALLY *Please review a nd pick correct strength-formulati on from Medispan options. If intended option is not shown, discontinue and re-order from Quick Search* Active Cyclobenzaprine HCl 10 MG 1 tab(s) orally at 5 to 6 PM; Duration: 90 days 06/26/2012 Active Lidoderm 5 % 1 PATCH applied topically once a day; Duration: 90 days 09/24/2012 Active Encounters Encounter Location Date Provider Diagnosis [facility] [address] [id number] 07/20/2024 Provider Migration Plan Of Treatment No Information Progress Notes * Simran PENDLETON GDOB:1955 (69 yo F)Acc No.[id number]:07/20/2024 Patient: Simran TOLLIVER Provider: :1955 A ge:69 Y S ex:Female Date:07/20/2024 Address:[address] [place], [place] [id number] Pcp:Opal Bates DO Subjective: * Chief Complaints: * 1 . Multum To Medispan Conversion Encounter. * Medical History: * Medications: T aking Cyclobenzaprine HCl 10 MG Tablet 1 tab(s) orally at 5 to 6 PM , Taking Lidoderm 5 % Patch 1 PATCH applied topically once a day , Taking Tylenol TABLET ORALLY , Notes to Pharmacist: *Please review and pick correct strength-formulation from Medispan options. If intended option is not shown, discontinue and re-order from Quick Search*, Taking Ambien TABLET ORALLY , Notes to Pharmacist: *Please review and pick correct strength-formulation from Medispan options. If intended option is not shown, discontinue and re-order from Quick Search*, Taking LORazepam TABLET ORALLY , Notes to Pharmacist: *Please review and pick correct strength-formulation from Medispan options. If intended option is not shown, discontinue and re-order from Quick Search*, Taking Aspirin EC DELAYED RELEASE TABLET ORALLY , Notes to Pharmacist: *Please review and pick correct strength-formulation from Medispan options. If intended option is not shown, discontinue and re-order from Quick Search*, Taking Norvasc , Notes to Pharmacist: *Please review and pick correct strength- formulation from [facility] options. If intended option is not shown, discontinue and re-order from Quick Search*, Taking HYDROcodone Bitartrate ER P.O. , Notes to Pharmacist: *Please review and pick correct strength-formulation from [facility] options. If intended option is not shown, discontinue and re-order from Quick Search*, Taking Calcium 600 + D , Notes to Pharmacist: *Please review and pick correct strength-formulation from [facility] options. If intended option is not shown, discontinue and re-order from Quick Search*, Taking VITAMIN A AND D , Notes to Pharmacist: *Please review for potential replacement for e-prescription and drug interaction check*, Taking Tirosint , Notes to Pharmacist: *Please review and pick correct strength-formulation from Medispan options. If intended option is not shown, discontinue and re-order from Quick Search*, Taking GABAPENTIN (NEURONTIN) , Notes to Pharmacist: *Please review for potential replacement for e-prescription and drug interaction check*, Taking Lipitor , Notes to Pharmacist: *Please review and pick correct strength- formulation from [facility] options. If intended option is not shown, discontinue and re-order from Quick Search* * Allergies: C odeine, Lyrica, traMADol, SULFA, Effexor, Penicillin, DARVOCET, Darvon, Nitrofurantoin. Objective: * Vitals: Assessment: Plan: * Treatment: * * Electronic signature of Prov ider Migration on 12/01/2024 at 09:15 PM CDT Sign off status: Pending * Provider: Date: 0 07/20/2024 Generated for Therese navarro/Scott/Willa on: 1 09:15 PM CDT
--- OUTSIDE RECORDS SUMMARY | 2024-07-22 06:30 | XMS_ITS ---
Author Organization [facility] Address [address] [place] [address] Care Team Providers Care Mid Level Net Developer Name Role Phone Nina Ordoñez Primary Care Provider Kwadwo Bales [phone] REASON FOR VISIT Screening Recall Encounters Encounter Location Date Provider Diagnosis [facility] [address] [address] 07/22/2024 Kwadwo Bales Essential hypertension I10 and Family history of colon cancer in mother Z80.0 Assessments Encounter Date Diagnosis (ICD Code) Assessment Notes Treatment Notes Treatment Clinical Notes Section Notes 07/22/2024 Essential hypertension (ICD-10 - I10) 07/22/2024 Family history of colon cancer in mother (ICD-10 - Z80.0) Plan Of Treatment No Information Progress Notes * MARLINE PENDLETON GDOB:1955 (69 yo F)Acc No.[id number]:07/22/2024 Progress Notes Patient: MARLINE TOLLIVER Provider: Raheem Bales APRN DISPERSION MIXER-BC :1955 A ge:69 Y S ex:Female Date:07/22/2024 Address:[address] [place] [id number] Pcp:Nina Ordoñez Subjective: * Chief Complaints: * S creening Recall Assessment: * Assessment: 1. E ssential hypertension - I10 (Primary) 2 . F amily history of colon cancer in mother - Z80.0 Billing Information: * Visit Code: 28714 Office Visit, Est Pt., Level 4. * Procedure Codes: Care Plan Details* * Electronic signature of Erick Bales APRN-MULTI LINE CLAIMS ADJUSTER on 12/01/2024 at 09:13 PM CDT Sign off status: Pending * Provider: Raheem Bales APRN DISPERSION MIXER-BC Date: 0 07/22/2024 Generated for Therese navarro/Scott/Willa on: 1 09:13 PM CDT
--- OUTSIDE RECORDS SUMMARY | 2024-07-31 10:15 | XMS_ITS ---
Author Organization [facility] Address [address] [place] [address] Care Team Providers Care Adobe Layer Name Role Phone Nina Ordoñez Primary Care Provider [phone] REASON FOR VISIT Screening Recall Encounters Encounter Location Date Provider Diagnosis Replaced By [facility] [address] [place] [address] 07/31/2024 Nina Ordoñez Plan Of Treatment No Information Progress Notes * MARLINE PENDLETON GDOB:1955 (69 yo F)Acc No.[id number]:07/31/2024 Progress Notes Patient: TOSIN TOLLIVERA Can Provider: Jorge Luis Ordoñez APRN :1955 A ge:69 Y S ex:Female Date:07/31/2024 Address:[address] [place], [place] [phone] Subjective: * Chief Complaints: * S creening Recall Billing Information: * Procedure Codes: Care Plan Details* * Electronic signature of Gerardo Fierro APRN on 12/01/2024 at 09:13 PM CDT Sign off status: Pending * Provider: Jorge Luis Ordoñez APRN Date: 0 07/31/2024 Generated for Therese navarro/Scott/Willa on: 1 09:13 PM CDT
--- OUTSIDE RECORDS SUMMARY | 2024-08-27 08:00 | XMS_ITS ---
Author Organization [facility] Address [address] [place] [address] Care Team Providers Care Substation Mechanic Name Role Phone Nina Ordoñez Primary Care Provider REASON FOR VISIT Screening Recall Medications Medication SIG (Take, Route, Frequency, Duration) Notes Start Date End Date Status Amlodipine *Reorder from [facility] for eRx and Interaction Alerts* Active Ambien *Pick strength-form from [facility] for eRX* Active Garlic *[facility]* Active Vitamin D3 *[facility]* Active Probiotic *[facility]* Active Hydrocodone Bitartrate 30 MG [...] Not-Taking Encounters Encounter Location Date Provider Diagnosis [facility] [address] [place], [place] [address] 08/27/2024 Nina Ordoñez Plan Of Treatment No Information Progress Notes * MARLINE PENDLETON GDOB:1955 (69 yo F)Acc No.[id number]:08/27/2024 Progress Notes Patient: MARLINE TOLLIVER Provider: Jorge Luis Ordoñez APRN :1955 A ge:69 Y S ex:Female Date:08/27/2024 Address:[address] [place], [place] [phone] Subjective: * Chief Complaints: * S creening Recall * Medications: T akingAmbien , Notes to Pharmacist: *[facility]*Amlodipine , Notes to Pharmacist: *[facility] for [facility] and Interaction Alerts*Garlic , Notes to Pharmacist: *[facility]*Hydrocodone Bitartrate 30 MG Capsule [...] , Notes to Pharmacist: *[facility]*QUEtiapine Fumarate 25 MG Tablet 2 tablet at bedtime Orally Once a day Synthroid 112 MCG Tablet 1 tablet in the morning on an empty stomach Orally Once a day Vitamin D3 , Notes to Pharmacist: *[facility]*Taking Ambien , Notes to Pharmacist: *[facility] for [facility]*Taking Amlodipine , Notes to Pharmacist: *[facility] for [facility]Rx and Interaction Alerts*Taking Garlic , Notes to Pharmacist: *[facility]*Taking Hydrocodone Bitartrate 30 MG Capsule [...] , Notes to Pharmacist: *Pick strength-form from [facility] for eRX*Taking QUEtiapine Fumarate 25 MG Tablet 2 tablet at bedtime Orally Once a day Taking Synthroid 112 MCG Tablet 1 tablet in the morning on an empty stomach Orally Once a day Taking Vitamin D3 , Notes to Pharmacist: *Pick strength-form from [facility] for eRX*Not-TakingHydrocil 95 % Packet 1 packet with 8 ounces of liquid as needed Orally Once a day Not-Taking Hydrocil 95 % Packet 1 packet with 8 ounces of liquid as needed Orally Once a day Billing Information: * Procedure Codes: Care Plan Details* * Electronic signature of Gerardo Fierro APRN on 12/01/2024 at 09:15 PM CDT Sign off status: Pending * Provider: Jorge Luis Ordoñez APRN Date: 0 08/27/2024 Generated for Therese navarro/Scott/Willa on: 1 09:15 PM CDT
--- OUTSIDE RECORDS SUMMARY | 2024-09-10 10:00 | XMS_ITS ---
Author Organization [facility] Address [address] [place] [address] Care Team Providers Care Chick Room Supervisor Name Role Phone Nina Ordoñez Primary Care Provider REASON FOR VISIT Screening Recall Encounters Encounter Location Date Provider Diagnosis [facility] [address] [place] [address] 09/10/2024 Nina Ordoñez Plan Of Treatment No Information Progress Notes * MARLINE PENDLETON GDOB:1955 (69 yo F)Acc No.[id number]:09/10/2024 Progress Notes Patient: TOSIN TOLLIVERA Can Provider: Jorge Luis Ordoñez APRN :1955 A ge:69 Y S ex:Female Date:09/10/2024 Address:[address] [place], [place] [phone] Subjective: * Chief Complaints: * S creening Recall Billing Information: * Procedure Codes: Care Plan Details* * Electronic signature of Gerardo Fierro APRN on 12/01/2024 at 09:14 PM CDT Sign off status: Pending * Provider: Jorge Luis Ordoñez APRN Date: 0 09/10/2024 Generated for Therese navarro/Scott/Estuardoitting on: 09:14 PM CDT
--- OUTSIDE RECORDS SUMMARY | 2024-09-10 10:40 | XMS_ITS ---
Author Organization [facility] Address [address] [place] [address] Care Team Providers Care Sports Athletic Trainer Name Role Phone Bonnie Amador APRN Primary Care Provider Leonor GEOVANNA Reed Unavailable [phone] REASON FOR VISIT 6 mo w/ ua/pvr Medications Medication SIG (Take, Route, Frequency, Duration) Notes Start Date End Date Status Hydrocodone Bitartrate 30 MG as directed Orally *Pick strength-form from [employer] for eRX* Not-Taking Atorvastatin Calcium Not-Taking Isosorbide Mononitrate 10 MG 1 tablet Orally Twice a day Not-Taking Hydrocil 95 % 1 packet with 8 ounces of liquid as needed Orally Once a day Not-Taking oxyBUTYnin Chloride ER 10 MG 1 tablet Orally Once a day Not-Taking QUEtiapine Fumarate 25 MG 2 tablet at bedtime Orally Once a day Active [place] Thyroid Not-T aking Lisinopril Not-Takin g Estradiol 0.1 MG/GM 1g (pea sized amount) Vaginal 3x per week at bedime x 8 weeks, then weekly for maintenance; Duration: 90 days 12/26/2023 Active Nitroglycerin 0.3 MG as directed Sublingual as needed Active Losartan Potassium 50 MG 1 tablet Orally Once a day; Duration: 30 day(s) 09/07/2022 Active HYDROcodone-Acetamin ophen 7.5-325 MG 1 tablet as needed Orally every 6 hrs Active Plavix Active Aspir-81 Active Entresto Active Myrbetriq 50 mg TAKE ONE TABLET BY MOUTH DAILY; Duration: 30 Active Synthroid 112 MCG 1 tablet in the morning on an empty stomach Orally Once a day Not-Taking Repatha 140 MG/ML 1 mL Subcutaneous Active Encounters Encounter Location Date Provider Diagnosis [facility] [address] [facility] [address] 09/10/2024 GEOVANNA WILSON Plan Of Treatment No Information Progress Notes * CLAUDE PENDLETONB:1955 ( 69 yo F)Acc No.[id number]:09/10/2024 Progress Notes Patient: MARLINE TOLLIVER Provider: FLAKITA Baum :1955 A ge:69 Y S ex:Female Date:09/10/2024 Address:[address] [place], [place] [phone] Pcp:Bonnie Amador APRN Subjective: * Chief Complaints: * 1 . 6 mo w/ ua/pvr. * Medical History: * Medications: T aking Repatha 140 MG/ML Solution Prefilled Syringe 1 mL Subcutaneous , Taking Entresto , Taking Aspir-81 , Taking Plavix , Taking HYDROcodone-Acetaminophen 7.5-325 MG Tablet 1 tablet as needed Orally every 6 hrs , Taking Losartan Potassium 50 MG Tablet 1 tablet Orally Once a day , Taking QUEtiapine Fumarate 25 MG Tablet 2 tablet at bedtime Orally Once a day , Taking Nitroglycerin 0.3 MG Tablet Sublingual as directed Sublingual as needed , Taking Estradiol 0.1 MG/GM Cream 1g (pea sized amount) Vaginal 3x per week at bedime x 8 weeks, then weekly for maintenance , Taking Myrbetriq 50 mg Tablet Extended Release 24 Hour TAKE ONE TABLET BY MOUTH DAILY , Not-Taking Lisinopril , Not-Taking [place] Thyroid , Not-Taking Atorvastatin Calcium , Not-Taking Hydrocodone Bitartrate 30 MG Capsule ER 12 Hour Abuse-Deterrent as directed Orally , Notes to Pharmacist: *Pick strength-form from [employer] for eRX*, Not-Taking oxyBUTYnin Chloride ER 10 MG Tablet Extended Release 24 Hour 1 tablet Orally Once a day , Not-Taking Hydrocil 95 % Packet 1 packet with 8 ounces of liquid as needed Orally Once a day , Not-Taking Isosorbide Mononitrate 10 MG Tablet 1 tablet Orally Twice a day , Not-Taking Synthroid 112 MCG Tablet 1 tablet in the morning on an empty stomach Orally Once a day Objective: * Vitals: Assessment: Plan: * Treatment: * Billing Information: * Visit Code: * Procedure Codes: * Electronic signature of GEOVANNA WILSON APRN on 12/01/2024 at 09:12 PM CDT Sign off status: Pending * Provider: Jorge Luis Wilson APRN-HOP TRAINER Date: 0 09/10/2024 Generated for Therese navarro/Scott/Willa on: 1 09:12 PM CDT
--- OUTSIDE RECORDS SUMMARY | 2024-09-26 11:00 | XMS_ITS ---
Author Organization [facility] Address [address] [place] [address] Care Team Providers Care Teacher Music Name Role Phone Nina Ordoñez Primary Care Provider REASON FOR VISIT Screening Recall Encounters Encounter Location Date Provider Diagnosis [facility] [address] [place] [address] 09/26/2024 Nina Ordoñez Plan Of Treatment No Information Progress Notes * MARLINE PENDLETON GDOB:1955 (69 yo F)Acc No.[id number]:09/26/2024 Progress Notes Patient: TOSIN TOLLIVERA Can Provider: Jorge Luis Ordoñez APRN :1955 A ge:69 Y S ex:Female Date:09/26/2024 Address:[address] [place], [place] [phone] Subjective: * Chief Complaints: * S creening Recall Care Plan Details* * Electronic signature of Gerardo Fierro APRN on 12/01/2024 at 09:14 PM CDT Sign off status: Pending * Provider: Jorge Luis Ordoñez APRN Date: 0 09/26/2024 Generated for Therese navarro/Scott/Willa on: 1 09:14 PM CDT
--- OUTSIDE RECORDS SUMMARY | 2024-10-05 16:00 | XMS_ITS ---
Author Organization [facility] Address [address] [place], [place] [id number] Care Team Providers Care Precision Instrument And Tool Maker Name Role Phone OTF MAZARIEGOS Primary Care Provider Unavaila LANCE Lyons Unavailable [phone] SELF REFERRAL, 0 Unavailable Unavailable Migration, Provider Unavailable Unavailable Allergies Allergen (clinical drug ingredient) Drug/Non Drug Allergy documented on EMR Reaction Allergy Type Onset Date Status tramadol traMADol cut my breath off Drug Allergy Active escitalopram Lexapro strange feelings and felt sick Drug Allergy Active SULFA (uncoded) rash Allergy Acti ve [facility] Encounter Medications Medication SIG (Take, Route, Frequency, Duration) Notes Start Date End Date Status amLODIPine Besylate 10 MG 1 tab(s) orally once a day; Duration: 30 day(s) Active Gabapentin 100 MG 3 tab(s) orally hs; Duration: 30 day(s) Active LORTAB 5/500 500 MG-5 MG 1 TAB(S) ORALLY Q4H; Duration: 5 DAY(S) *Please review for potential replacement for e-prescription and drug interaction check* Active Nortriptyline HCl 25 MG 1 cap(s) orally hs; Duration: 30 day(s) Active Levothroid 112 MCG (0.112 MG) 1 TAB(S) ORALLY ONCE A DAY; Duration: 30 DAY(S) *Please review and pick correct strength-formulatio n from Medispan options. If intended option is not shown, discontinue and re-order from Quick Search* Active Zolpidem Tartrate 10 MG 0.5-1 tab(s) orally once a day (at bedtime); Duration: 30 day(s) Active Proventil HFA CFC FREE 90 MCG/INH 2 PUFF(S) INHALED QID; Duration: 30 DAY(S) *Please review and pick correct strength-formulatio n from Medispan options. If intended option is not shown, discontinue and re-order from Quick Search* Active Maxiphen DM 20 MG-400 MG-10 MG 1 TAB(S) ORALLY Q6H; Duration: 10 DAY(S) *Please review and pick correct strength-formulatio n from Medispan options. If intended option is not shown, discontinue and re-order from Quick Search* 03/28/2008 Active Encounters Encounter Location Date Provider Diagnosis [facility] [address] [id number] 10/05/2024 Provider Migration Allergic rhinitis due to allergen 477.8 Assessments Encounter Date Diagnosis (ICD Code) Assessment Notes Treatment Notes Treatment Clinical Notes Section Notes 10/05/2024 Allergic rhinitis due to allergen (ICD9-CM - 477.8) Plan Of Treatment Medication Medication Name Sig Start Date Stop Date Notes Maxiphen DM 20 MG-400 MG-10 MG 1 TAB(S) ORALLY Q6H; Duration: 10 DAY(S) 03/28/2008 *Please review and p ick correct strength-formulation from Medispan options. If intended option is not shown, discontinue and re-order from Quick Search* Progress Notes * MARLINE HARTMAN GDOB:1955 (69 yo F)Acc No.[id number]:10/05/2024 Patient: MARLINE TOLLIVER Provider: :1955 A ge:69 Y S ex:Female Date:10/05/2024 Address:[address] Pcp:OTF MAZARIEGOS Subjective: * Chief Complaints: * 1 . [facility] To Medispan Conversion Encounter. * Medical History: * Medications: T aking Proventil HFA CFC FREE 90 MCG/INH AEROSOL WITH ADAPTER 2 PUFF(S) INHALED QID , Notes to Pharmacist: *Please review and pick correct strength-formulation from Medispan options. If intended option is not shown, discontinue and re-order from Quick Search*, Taking Zolpidem Tartrate 10 MG Tablet 0.5-1 tab(s) orally once a day (at bedtime) , Taking LORTAB 5/500 500 MG-5 MG TABLET 1 TAB(S) ORALLY Q4H , Notes to Pharmacist: *Please review for potential replacement for e-prescription and drug interaction check*, Taking Gabapentin 100 MG Tablet 3 tab(s) orally hs , Taking amLODIPine Besylate 10 MG Tablet 1 tab(s) orally once a day , Taking Levothroid 112 MCG (0.112 MG) TABLET 1 TAB(S) ORALLY ONCE A DAY , Notes to Pharmacist: *Please review and pick correct strength-formulation from [employer] options. If intended option is not shown, discontinue and re-order from Quick Search*, Taking Nortriptyline HCl 25 MG Capsule 1 cap(s) orally hs * Allergies: S ULFA: rash, Lexapro: strange feelings and felt sick , traMADol: cut my breath off . Objective: * Vitals: Assessment: * Assessment: 1. A llergic rhinitis due to allergen - 477.8 (Primary) Plan: * Treatment: * * Electronic signature of Prov ider Migration on 12/01/2024 at 10:15 PM EDT Sign off status: Pending * Provider: Date: 0 10/05/2024 Generated for Therese navarro/Scott/Willa on: 10:15 PM EDT
--- OUTSIDE RECORDS SUMMARY | 2024-10-08 10:30 | XMS_ITS ---
Author Organization [facility] Address [address] [place] [address] Care Team Providers Care General Lithographic Worker Name Role Phone Nina Ordoñez Primary Care Provider REASON FOR VISIT Screening Recall Encounters Encounter Location Date Provider Diagnosis [facility] [address] [place] [address] 10/08/2024 Nina Ordoñez Plan Of Treatment No Information Progress Notes * MARLINE PENDLETON GDOB:1955 (69 yo F)Acc No.[id number]:10/08/2024 Progress Notes Patient: TOSIN TOLLIVERA Can Provider: Jorge Luis Ordoñez APRN :1955 A ge:69 Y S ex:Female Date:10/08/2024 Address:[address] [place], [place] [phone] Subjective: * Chief Complaints: * S creening Recall Care Plan Details* * Electronic signature of Gerardo Fierro APRN on 12/01/2024 at 09:14 PM CDT Sign off status: Pending * Provider: Jorge Luis Ordoñez APRN Date: 0 10/08/2024 Generated for Therese navarro/Scott/Willa on: 1 09:14 PM CDT
--- OUTSIDE RECORDS SUMMARY | 2024-11-05 09:00 | XMS_ITS ---
Author Organization [facility] Address [address] [place] [address] Care Team Providers Care Livestock Rancher Name Role Phone Nina Ordoñez Primary Care Provider [phone] Gricel Murphy Unavailable [phone] REASON FOR VISIT Chronic GERD Medications Medication SIG (Take, Route, Frequency, Duration) Notes Start Date End Date Status Synthroid 112 MCG Tablet 1 tablet in the morning on an empty stomach Orally Once a day Not-Taking Hydrocodone Bitartrate 30 MG Capsule ER 12 Hour Abuse-Deterrent as directed Orally Not-Ta laurie Losartan Potassium 50 MG Tablet 1 tablet Orally Once a day; Duration: 30 day(s) 09/07/2022 Not-Taking Isosorbide Mononitrate 10 MG Tablet 1 tablet Orally Twice a day Not-Taking MiraLax 17 GM/SCOOP Powder 1 scoop mixed with 8 ounces of fluid Orally Once a day Not-Taking Ambien *Pick strength-form from [facility] for eRX* Not-Taking Vitamin D3 *Pick strength-form from [facility] for eRX* Active Garlic *Pick strength-form from [facility] for eRX* Not-Taking Amlodipine *Reorder from [facility] for eRx and Interaction Alerts* Not-Taking Hydrocil 95 % Packet 1 packet with 8 ounces of liquid as needed Orally Once a day Not-Taking Tirosint 100 MCG Capsule 1 capsule in the morning on an empty stomach Orally Once a day Active QUEtiapine Fumarate 25 MG Tablet 2 tablet at bedtime Orally Once a day Active Nitroglycerin 0.3 MG Tablet Sublingual as directed Sublingual as needed Active HYDROcodone-Acetami nophen 7.5-325 MG Tablet 1 tablet as needed Orally every 6 hrs Active Probiotic *[facility]* Active Pantoprazole Sodium 40 MG Tablet Delayed Release 1 tablet 1/2 to 1 hour before morning meal Orally Once a day; Duration: 90 days 10/22/2024 Active Atenolol 100 MG Tablet 1 tablet Orally Once a day Active Repatha 140 MG/ML Solution Prefilled Syringe 1 mL Subcutaneous Active Entresto 49-51 MG Tablet 1 tablet Orally Twice a day Active dilTIAZem HCl 30 MG Tablet as directed Orally Active Encounters Encounter Location Date Provider Diagnosis [facility] [address] [place] [address] 11/05/2024 Gricel Murphy Plan Of Treatment No Information Progress Notes * MARLINE PENDLETON GDOB:1955 (69 yo F)Acc No.[id number]:11/05/2024 History and Physical Patient: MARLINE TOLLIVER Provider: Jorge Luis Murphy MD :1955 A ge:69 Y S ex:Female Date:11/05/2024 Address:[address] [place], [place] [phone] Pcp:Nina Ordoñez Check Out: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 Subjective: * Chief Complaints: * C hronic GERD * Medications: T akingPantoprazole Sodium 40 MG Tablet Delayed Release 1 tablet 1/2 to 1 hour before morning meal Orally Once a day Repatha 140 MG/ML Solution Prefilled Syringe 1 mL Subcutaneous Atenolol 100 MG Tablet 1 tablet Orally Once a day dilTIAZem HCl 30 MG Tablet as directed Orally Entresto 49-51 MG Tablet 1 tablet Orally Twice a day HYDROcodone-Acetaminophen 7.5-325 MG Tablet 1 tablet as needed Orally every 6 hrs Nitroglycerin 0.3 MG Tablet Sublingual as directed Sublingual as needed Probiotic , Notes to Pharmacist: *Pick strength-form from [facility] for eRX*QUEtiapine Fumarate 25 MG Tablet 2 tablet at bedtime Orally Once a day Tirosint 100 MCG Capsule 1 capsule in the morning on an empty stomach Orally Once a day Vitamin D3 , Notes to Pharmacist: *Pick strength-form from [facility] for eRX*Taking Pantoprazole Sodium 40 MG Tablet Delayed Release 1 tablet 1/2 to 1 hour before morning meal Orally Once a day Taking Repatha 140 MG/ML Solution Prefilled Syringe 1 mL Subcutaneous Taking Atenolol 100 MG Tablet 1 tablet Orally Once a day Taking dilTIAZem HCl 30 MG Tablet as directed Orally Taking Entresto 49-51 MG Tablet 1 tablet Orally Twice a day Taking HYDROcodone-Acetaminophen 7.5-325 MG Tablet 1 tablet as needed Orally every 6 hrs Taking Nitroglycerin 0.3 MG Tablet Sublingual as directed Sublingual as needed Taking Probiotic , Notes to Pharmacist: *Pick strength-form from [facility] for eRX*Taking QUEtiapine Fumarate 25 MG Tablet 2 tablet at bedtime Orally Once a day Taking Tirosint 100 MCG Capsule 1 capsule in the morning on an empty stomach Orally Once a day Taking Vitamin D3 , Notes to Pharmacist: *Pick strength-form from [facility] for eRX*Not-TakingAmbien , Notes to Pharmacist: *Pick strength-form from [facility] for eRX*Amlodipine , Notes to Pharmacist: *Reorder from [facility] for eRx and Interaction Alerts*Garlic , Notes to Pharmacist: *Pick strength-form from [facility] for eRX*Hydrocil 95 % Packet 1 packet with 8 ounces of liquid as needed Orally Once a day Hydrocodone Bitartrate 30 MG Capsule ER 12 Hour Abuse-Deterrent as directed Orally Isosorbide Mononitrate 10 MG Tablet 1 tablet Orally Twice a day Losartan Potassium 50 MG Tablet 1 tablet Orally Once a day MiraLax 17 GM/SCOOP Powder 1 scoop mixed with 8 ounces of fluid Orally Once a day Synthroid 112 MCG Tablet 1 tablet in the morning on an empty stomach Orally Once a day Not-Taking Ambien , Notes to Pharmacist: *Pick strength-form from [facility] for eRX*Not-Taking Amlodipine , Notes to Pharmacist: *Reorder from [facility] for eRx and Interaction Alerts*Not-Taking Garlic , Notes to Pharmacist: *Pick strength-form from [facility] for eRX*Not-Taking Hydrocil 95 % Packet 1 packet with 8 ounces of liquid as needed Orally Once a day Not-Taking Hydrocodone Bitartrate 30 MG Capsule ER 12 Hour Abuse-Deterrent as directed Orally Not- Taking Isosorbide Mononitrate 10 MG Tablet 1 tablet Orally Twice a day Not-Taking Losartan Potassium 50 MG Tablet 1 tablet Orally Once a day Not-Taking MiraLax 17 GM/SCOOP Powder 1 scoop mixed with 8 ounces of fluid Orally Once a day Not-Taking Synthroid 112 MCG Tablet 1 tablet in the morning on an empty stomach Orally Once a day Billing Information: * Procedure Codes: * Electronic signature of Roberto Murphy MD on 12/01/2024 at 09:13 PM CDT Sign off status: Pending * Provider: Jorge Luis Murphy MD Date: 0 11/05/2024 Generated for Therese navarro/Scott/Willa on: 1 09:13 PM CDT
--- NOTE | 2024-12-01 21:08 | ECG_ITS ---
[facility] [place] Date: 2024-12-01 Pat Name: Simran Pendleton Department: Room: Gender: Female Enamel Shader: : 1955 Requested By: Emerson Avalos Order Number: [id number] Angelito MD: Hansel Alfaro M.D. Measurements Intervals Phillips Rate: 103 P: 43 MT: 146 QRS: 32 QRSD: 76 T: 3 QT: 309 QTc: 405 Interpretive Statements SINUS TACHYCARDIA NONSPECIFIC ST & T-WAVE ABNORMALITY ABNORMAL RHYTHM ECG Compared to ECG 10/28/2024 11:42:37 Sinus bradycardia no longer present T-wave abnormality still present Electronically Signed On 12-03-2024 19:26:29 CDT by Hansel Alfaro M.D. [email or web address]
--- NOTE | 2024-12-01 21:08 | XRR_ITS ---
PROCEDURE INFORMATION: Exam: XR Chest Exam date and time: 12/01/2024 9:24 PM Age: 69 years old Clinical indication: Shortness of breath; Chest pressure; Prior surgery; Surgery date: Post-operative (0-2 days); Surgery type: Coronary stent 11/29/2024; Chest pain with SOB; Additional info: Cp TECHNIQUE: Imaging protocol: Radiologic exam of the chest. Views: 1 view. COMPARISON: CR XR chest 2V* [id number] 03/11/2024 10:31 AM FINDINGS: Lungs: Vague opacity is present in the lower lobes nonspecific could represent atelectasis correlate clinically. Pleural spaces: No significant large effusion or pneumothoraces. Heart/Mediastinum: Unremarkable. No cardiomegaly. Bones/joints: Hard bony structures show no acute findings XR/XR chest 1V portable [id number] IMPRESSION: Vague opacities lower lobe of nonspecific etiology atelectasis could be a consideration correlate and follow-up as indicated
--- OUTSIDE RECORDS SUMMARY | 2024-12-01 21:12 | XMS_ITS | Encounter Summary ---
Author Organization [facility] Address [address] [place] [address] Care Team Providers Care Senior Risk Manager Name Role Phone Bonnie Amador ELECTRICIAN SUPERVISOR Primary Care Provider [phone] Encounter Details Date Type Department Care Team (Late st Contact Info) Description 01/03/2008 Outpatient Historical [facility] Jonh Peck (Tad), [address] [place] [id number] Thoracic or Lumbosacral Neuritis or Radiculitis, Unspecified Social History Tobacco Use Types Packs/Day Years Used Date Smoking Tobacco: Former Cigarettes Q uit: 02/13/1979 Alcohol Use Standard Drinks/Week Comments No 0 (1 standard drink = 0.6 oz pur e alcohol) Comments No Sex and Gender Information Value Date Recorded Sex Assigned at Not on file Legal Sex Female 3:29 AM PIPE THREADER Gender Identity Not on file Sexual Orientation Not on file documented as of this encounter Plan of Treatment Not on file documented as of this encounter Procedures Procedure Name Priority Date/Time Associated Diagnosis Comments XR CERVICAL SPINE 4 OR 5 VIEWS Routine 01/03/2008 3:08 PM PIPE THREADER documented in this encounter Results * XR CERVICAL SPINE MIN 4+ VW (01/03/2008 3:08 PM PIPE THREADER) Anatomical Region Laterality Modality Spine Other 01/03/2008 3:08 PM PIPE THREADER Narrative 01/03/2008 5:04 PM PIPE THREADER [facility] [address] [place], [place] [address] Admit Date: 01/03/2008 SIMRAN PENDLETON Sex: F Admit Prov: JOHN PECK Date: 1955 Primary Care Prov: FERDINAND REGAN CMRN: [id number] [facility] [address] [place] [address] IMAGING SERVICES Ordering Prov: N/A Accession Number: [id number] Interpretation EXAMINATION: CERVICAL SPINE, 5 VIEWS, 01/03/08 [...] Procedure Note Juancarlos Lino MD - 01/03/[address] [place], [place] [address] Admit Date: 01/03/2008 SIMRAN PENDLETON Sex: F Admit Prov: JOHN PECK Date: 1955 Primary Care Prov: FERDINAND REGAN CMRN: [id number] [id number] IMAGING SERVICES Ordering Prov: N/A Interpretation EXAMINATION: CERVICAL SPINE, 5 VIEWS, 01/03/08 Clinical History: Neck pain. Findings: Examination of the cervical spine fails to demonstrateevidence of fracture or dislocation. Anterior projecting osteophyte is presentin the inferior C6 endplate. There is facet sclerosis at the left C5-R1glxrt. Impression: Mild degenerative changes within the cervical spine. . Dictated by: Raheem LINO 01/03/2008 16:52 Electronically signed by: Raheem LINO 01/03/2008 17:03 Transcribed: 01/03/2008 16:59 LE us John North (Tad) [employer] [facility] ORDERAB LES Final Result documented in this encounter Visit Diagnoses Diagnosis Thoracic or lumbosacral neuritis or radiculitis, unspecified documented in this encounter Care Teams Senior Risk Manager Relationship Specialty Start Date End Date Bonnie Amador, ELECTRICIAN SUPERVISOR [address] [place] [address] [phone] PCP - General NURSE PRACTITIONER 04/24/17 documented as of this encounter
--- OUTSIDE RECORDS SUMMARY | 2024-12-01 21:12 | XMS_ITS | Encounter Summary ---
Author Organization [employer] [facility] Address [address] [place] [address] Care Team Providers Care Traffic Signal Supervisor Maintenance Name Role Phone Bonnie Amador NP Primary Care Provider [phone] Encounter Details Date Type Department Care Team (Late st Contact Info) Description 02/04/2008 Outpatient Historical [facility] John Peck (Tad)MD [address] [place] [id number] Thoracic or Lumbosacral Neuritis or Radiculitis, Unspecified Social History Tobacco Use Types Packs/Day Years Used Date Smoking Tobacco: Former Cigarettes Q uit: 02/13/1979 Alcohol Use Standard Drinks/Week Comments No 0 (1 standard drink = 0.6 oz pur e alcohol) Comments No Sex and Gender Information Value Date Recorded Sex Assigned at Not on file Legal Sex Female 3:29 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
--- OUTSIDE RECORDS SUMMARY | 2024-12-01 21:12 | XMS_ITS | Encounter Summary ---
Author Organization [employer] [facility] Address [address] [place] [address] Care Team Providers Care Hydraulic Rockbreaker Operator Name Role Phone Bonnie Amador MULTIMEDIA ENGINEER Primary Care Provider [phone] Encounter Details Date Type Department Care Team (Late st Contact Info) Description 01/04/2008 Outpatient Historical [facility] Adelaide Jaramillo MD [address] [place] [phone] Functional Diarrhea Social History Tobacco Use Types Packs/Day Years Used Date Smoking Tobacco: Former Cigarettes Q uit: 02/13/1979 Alcohol Use Standard Drinks/Week Comments No 0 (1 standard drink = 0.6 oz pur e alcohol) Comments No Sex and Gender Information Value Date Recorded Sex Assigned at Not on file Legal Sex Female 3:29 AM HEAD SOFT SUGAR OPERATOR Gender Identity Not on file Sexual Orientation Not on file documented as of this encounter Plan of Treatment Not on file documented as of this encounter Procedures Procedure Name Priority Date/Time Associated Diagnosis Comments STOOL CULTURE (LA,SHIG,CAMPY,ECO1 57) Routine 01/04/2008 10:57 AM HEAD SOFT SUGAR OPERATOR C. DIFFICILE DETECTION Routine 01/04/2008 10:57 AM HEAD SOFT SUGAR OPERATOR FECAL LEUKOCYTES STAIN Routine 01/04/2008 10:57 AM HEAD SOFT SUGAR OPERATOR OVA AND PARASITE SCREEN Routine 01/04/2008 10:57 AM HEAD SOFT SUGAR OPERATOR documented in this encounter Results * CLOSTRIDIUM DIFFICILE TOXIN (01/04/2008 10:57 AM HEAD SOFT SUGAR OPERATOR) FINAL REPORT NO Clostridium difficile Toxin A or B detected by EIA. A negative result does not rule out C. difficile associated diarrhea or colitis. [facility] Stool specimen (specimen) 01/04/2008 10:57 AM HEAD SOFT SUGAR OPERATOR 01/04/2008 3:00 PM HEAD SOFT SUGAR OPERATOR Adelaide Jaramillo MD MICROBIOLOGY - GENERAL O RDERABLES Final Result Performing Organization Address [facility] de Phone Number INTERFACE SYSTEM Refer to clinic/hospital department [facility] CLIA# [id number] [address] [place] [address] * OVA AND PARASITE SCREEN (01/04/2008 10:57 AM HEAD SOFT SUGAR OPERATOR) PRELIMINARY REPORT Pending [facility] FINAL REPORT Concentration : No ova or parasites seen. Trichrome: No ova or parasites seen. [facility] Stool specimen (specimen) 01/04/2008 10:57 AM HEAD SOFT SUGAR OPERATOR 01/04/2008 3:00 PM HEAD SOFT SUGAR OPERATOR Narrative INTERFACE SYSTEM - 01/07/2008 3:37 PM HEAD SOFT SUGAR OPERATOR Performed by [employer] [address] Performed by [employer] [address] Adelaide Jaramillo MD MICROBIOLOGY - GENERAL O RDERABLES Final Result Performing Organization Address [facility] de Phone Number INTERFACE SYSTEM Refer to clinic/hospital department [facility] CLIA# [id number] [address] [place] [address] * FECAL LEUKOCYTES STAIN (01/04/2008 10:57 AM HEAD SOFT SUGAR OPERATOR) FINAL REPORT No WBC's seen. [facility] Stool specimen (specimen) 01/04/2008 10:57 AM HEAD SOFT SUGAR OPERATOR 01/04/2008 3:00 PM HEAD SOFT SUGAR OPERATOR Adelaide Jaramillo MD MICROBIOLOGY - GENERAL O RDERABLES Final Result Performing Organization Address [facility] Phone Number INTERFACE SYSTEM Refer to clinic/hospital department [facility] CLIA# [id number] [address] [place] [address] * STOOL CULTURE (LA,SHIG,CAMPY,[id number]) (01/04/2008 10:57 AM HEAD SOFT SUGAR OPERATOR) PRELIMINARY REPORT No Salmonella isolated. No Shigella isolated. No Escherichia coli serogroup O157:H7 isolated. [facility] FINAL REPORT No Salmonella isolated. No Shigella isolated. No Escherichia coli serogroup O157:H7 isolated. No Camplylobacter isolated. [facility] Stool specimen (specimen) 01/04/2008 10:57 AM HEAD SOFT SUGAR OPERATOR 01/04/2008 3:00 PM HEAD SOFT SUGAR OPERATOR Adelaide Jaramillo MD MICROBIOLOGY - GENERAL O RDERABLES Final Result Performing Organization Address [facility] Phone Number INTERFACE SYSTEM Refer to clinic/hospital department [facility] CLIA# [id number] [address] [place] [address] documented in this encounter Visit Diagnoses Diagnosis Functional diarrhea documented in this encounter Care Teams Hydraulic Rockbreaker Operator Relationship Specialty Start Date End Date Bonnie Amador NP [address] [place] [phone] PCP - General NURSE PRACTITIONER 04/24/17 documented as of this encounter
--- OUTSIDE RECORDS SUMMARY | 2024-12-01 21:12 | XMS_ITS | Encounter Summary ---
Author Organization [employer] [facility] Address [address] [place] [address] Care Team Providers Care Maintenance Analyst Name Role Phone Bonnie Amador FLORIST'S DECORATOR Primary Care Provider +1- [phone] Encounter Details Date Type Department Care Team (Late st Contact Info) Description 11/30/2007 Outpatient Historical [facility] Adelaide Jaramillo MD [address] [place] [phone] Gastroparesis Social History Tobacco Use Types Packs/Day Years Used Date Smoking Tobacco: Former Cigarettes Q uit: 02/13/1979 Alcohol Use Standard Drinks/Week Comments No 0 (1 standard drink = 0.6 oz pur e alcohol) Comments No Sex and Gender Information Value Date Recorded Sex Assigned at Not on file 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 Gender Identity Not on file Sexual Orientation Not on file documented as of this encounter Plan of Treatment Not on file documented as of this encounter Procedures Procedure Name Priority Date/Time Associated Diagnosis Comments SCLERODERMA ANTIBODY SCL 70 Routine 11/30/2007 5:04 PM CDT HU ANTIBODY Routine 11/30/2007 5:04 PM CDT PROTEIN ELECTROPHORESIS W/REFLEX,URINE Routine 11/30/2007 5:04 PM CDT ROSE SCREEN W/REFLEX Routine 11/30/2007 5 :04 PM CDT PROTEIN ELECTROPHORESIS W/REFLEX,SERUM Routine 11/30/2007 5:04 PM CDT HEMOGLOBIN A1C Routine 11/30/2007 5:04 PM CDT XR CHEST PA AND LATERAL 2 VW Routine 11/30/2007 4:55 PM CDT documented in this encounter Results * PROTEIN ELECTROPHORESIS, SERUM (11/30/2007 5:04 PM CDT) PROTEIN TOTAL, SPE 7.5 6.0 - 8.3 g/dL [facility] ALPHA 2 GLOBULIN SPE 0.89 0.50 - 1.01 g/dL [facility] ALBUMIN SPE 4.55 3.60 - 5.00 g/dL [facility] SPE INTERP Normal electrophoretic pattern. [facility] BETA GLOBULIN 0.98 0.60 - 1.05 g/dL [facility] ELECTROPHORESIS INTERP BY: Shavonne Lemus MD [facility] ALPHA 1 GLOBULIN SPE 0.17 0.12 - 0.30 g/dL [facility] GAMMA GLOBULIN 0.91 0.60 - 1.33 g/dL [facility] Blood specimen (specimen) 11/30/2007 5:04 PM CDT 11/30/2007 9:03 PM CDT Adelaide Jaramillo MD CHEMISTRY ORDERABLES Leon phylicia INTERFACE SYSTEM Refer to clinic/hospital department [facility] CLIA# [id number] [address] [facility] [place] [place] [place] [address] * (ABNORMAL) PROTEIN ELECTROPHORESIS, URINE (11/30/2007 5:04 PM CDT) CREATININE, URINE 221 29 - 226 [facility] Comment:Reference Range vari es with fluid intake and diet. PROTEIN TOTAL, URINE 28(H) 0 - 20 mg/dL [facility] PROTEIN/CREATI NINE RATIO, UPE 0.13 0.00 - 0.19 mg/mg creatinine [facility] UPE INTERPRETED BY: Shavonne Lemus MD [facility] UPE INTERP Pattern indicates predominantly glomerular proteinuria. [facility] Urine specimen (specimen) 11/30/2007 5:04 PM CDT 11/30/2007 9:03 PM CDT Adelaide Jaramillo MD URINE ORDERABLES Edited INTERFACE SYSTEM Refer to clinic/hospital department [facility] CLIA# [id number] [address] [place] [address] * HU ANTIBODY (11/30/2007 5:04 PM CDT) HU AB NEGATIVE [facility] Comment: Reference Range: NEGATIVE Neuronal nuclear [...] its performance characteristics have been determined by [facility]. It has not been cleared or approved by the U.S. Food and Drug Administration. The FDA has determined that such clearance or approval is not necessary. Performance characteristics refer to the analytical performance of the test. Lab test performed by: [employer] [id number] [place] [id number] Tashi ULLOA MD HU ANTIBODY WB Not Performed [facility] Comment: Reference Range: NEGATIVE TNP-Supplemental testing not performed. Lab test performed by: [employer] [id number]. MARK'S HOSPITALJUDY JIMENEZ [address] Tashi ULLOA MD HU AB TITER Not Performed Titer [facility] Comment: Reference Range: LESS THAN 1:40 TNP-Screening test negative. Titer not performed. Lab test performed by: [employer] [address] [place] [address] Tashi ULLOA MD Blood specimen (specimen) 11/30/2007 5:04 PM CDT 11/30/2007 9:03 PM CDT Adelaide Jaramillo MD CHEMISTRY ORDERABLES Leon phylicia Performing Organization Address [facility] Phone Number INTERFACE SYSTEM Refer to clinic/hospital department [facility] CLIA# [id number] [address] [place] [address] * SCLERODERMA ANTIBODY SCL 70 (11/30/2007 5:04 PM CDT) [facility] SCLERODERMA AB SCL 70 <1.0 NEG <1.0 NEG Index [facility] Comment: Lab test performed by: [employer] [address] [address] [place] [address] EDUARDO UGALDE MD Blood specimen (specimen) 11/30/2007 5:04 PM CDT 11/30/2007 9:03 PM CDT Adelaide Jaramillo MD CHEMISTRY ORDERABLES Fin al Result Performing Organization Address [facility] de Phone Number INTERFACE SYSTEM Refer to clinic/hospital department [facility] CLIA# [id number] [address] [place] [address] * HEMOGLOBIN A1C (11/30/2007 5:04 PM CDT) [facility] HEMOGLOBIN A1C 5.8 4.1 - 6.1 % of Hgb [facility] GLUCOSE, MEAN BLOOD 129 mg/dL [facility] Blood specimen (specimen) 11/30/2007 5:04 PM CDT 11/30/2007 9:03 PM CDT Adelaide Jaramillo MD CHEMISTRY ORDERABLES Fin al Result Performing Organization Address [facility] de Phone Number INTERFACE SYSTEM Refer to clinic/hospital department [facility] CLIA# [id number] [address] [place] [address] * ROSE (11/30/2007 5:04 PM CDT) [facility] ROSE SCREEN NEGATIVE NEGATIVE [facility] Comment: Lab test performed by: [employer] [address] [address] [place] [address] EDUARDO UGALDE MD Blood specimen (specimen) 11/30/2007 5:04 PM CDT 11/30/2007 9:03 PM CDT Adelaide Jaramillo MD CHEMISTRY ORDERABLES Fin al Result Performing Organization Address [facility] de Phone Number INTERFACE SYSTEM Refer to clinic/hospital department [facility] CLIA# [id number] [address] [place] [address] * XR CHEST PA AND LATERAL (11/30/2007 4:55 PM CDT) Anatomical Region Laterality Modality Chest Other 11/30/2007 4:55 PM CDT Narrative 11/30/2007 7:43 PM CDT [facility] [address] [place], [place] [address] Admit Date: 11/30/2007 SIMRAN HARTMAN Sex: F Admit Prov: Shavonne JARAMILLO Date: 1955 Primary Care Prov: FAUSTINAANAYELI FERDINANDRaheem PERDOMO CMRN: [id number] Room: [facility] SSN: [id number] IMAGING SERVICES Ordering Prov: N/A Accession Number: [id number] Interpretation CHEST, PA AND LATERAL 11/30/2007 History: Gastroparesis Findings: No infiltrate, pleural effusion or pneumothorax is present. Heart size, mediastinum and pulmonary vascularity are normal. Impression: No active pulmonary disease. . Dictated by: RODNEY CLEMENT 11/30/2007 17:04 Electronically signed by: RODNEY CLEMENT 11/30/2007 19:42 Transcribed: 11/30/2007 17:05 AMK Procedure Note Rodney Clement MD - 11/30/2007 [facility] [address] [place], [place] [address] Admit Date: 11/30/2007 DEVAN SIMRAN G Sex: F Admit Prov: Shavonne JARAMILLO Date: 1955 Primary Care Prov: SHEREEN FERDINANDRaheem PERDOMO CMRN: [id number] Room: [facility] SSN: [address] [place] [address] IMAGING SERVICES Ordering Prov: N/A Interpretation CHEST, PA AND LATERAL 11/30/2007 History: Gastroparesis Findings: No infiltrate, pleural effusion or pneumothorax is present.Heart size, mediastinum and pulmonary vascularity are normal. Impression: No active pulmonary disease. . Dictated by: RODNEY CLEMENT 11/30/2007 17:04 Electronically signed by: RODNEY CLEMENT 11/30/2007 19:42 Transcribed: 11/30/2007 17:05 AMK Adelaide Jaramillo MD DIAGNOSTIC IMAGING ORDER KATIE Final Result documented in this encounter Visit Diagnoses Diagnosis Gastroparesis documented in this encounter Care Teams Maintenance Analyst Relationship Specialty Start Date End Date Bonnie Amador NP [address] [place] [phone] PCP - General NURSE PRACTITIONER 04/24/17 documented as of this encounter
--- OUTSIDE RECORDS SUMMARY | 2024-12-01 21:12 | XMS_ITS | Encounter Summary ---
Author Organization [facility] Address [address] [place] [address] Care Team Providers Care It Intern Name Role Phone Bonnie Amador NETWORK SUPPORT SPECIALIST Primary Care Provider [phone]- [phone] Encounter Details Date Type Department Care Team (Late st Contact Info) Description 11/23/2007 Outpatient Historical [facility] Mariya Monique MD [address] [facility] [address] [place] [address] Abdominal Pain Social History Tobacco Use Types Packs/Day Years Used Date Smoking Tobacco: Former Cigarettes Q uit: 02/13/1979 Alcohol Use Standard Drinks/Week Comments No 0 (1 standard drink = 0.6 oz pur e alcohol) Comments No Sex and Gender Information Value Date Recorded Sex Assigned at Not on file 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 Gender Identity Not on file Sexual [...] AM CDT Narrative 11/23/2007 12:32 PM CDT [facility] [address] [place], [place] [address] Admit Date: 11/23/2007 SIMRAN PENDLETON Sex: F Admit Prov: MARIYA MONIQUE Date: 1955 [id number] [facility] Ordering Prov: N/A Accession Number: [id number] Interpretation Gastric emptying study History: 52-year-old female [...] Procedure Note Rachna Lazcano MD - 11/23/[address] [address] Admit Date: 11/23/2007 SIMRAN PENDLETON Sex: F Admit Prov: MARIYA MONIQUE Date: 1955 Primary Care Prov: CMRN: [id number] [facility] [id number] IM[facility]ING SERVICES Ordering Prov: N/A Interpretation Gastric [...] suggestive ofmild gastroparesis. . Dictated by: RACHNA LAZCANO 11/23/2007 12:30 Electronically signed by: RACHNA LAZCANO 11/23/2007 12:31 us Mariya Monique MD NM ORDERABLES Final Resu lt documented in this encounter Visit Diagnoses Diagnosis Abdominal pain documented in this encounter Care Teams It Intern Relationship Specialty Start Date End Date Bonnie Amador NP [address] [place] [phone] PCP - General NURSE PRACTITIONER 04/24/17 documented as of this encounter
--- OUTSIDE RECORDS SUMMARY | 2024-12-01 21:12 | XMS_ITS | Encounter Summary ---
Author Organization [employer] Address [address] [place] [address] Care Team Providers Care Sde Name Role Phone Bonnie Amador MARGIN TRIMMER Primary Care Provider [phone]- [phone] Encounter Details Date Type Department Care Team [...] on file Legal Sex Female 3:29 AM TOURS HOSTESS Gender Identity Not on file Sexual Orientation Not on file documented as of this encounter Plan of Treatment Not on file documented as of this encounter Procedures Procedure Name Priority Date/Time Associated Diagnosis Comments CBC WITH DIFFERENTIAL Stat 01/09/2008 6:05 PM TOURS HOSTESS XR CHEST PA AND LATERAL 2 VW Routine 01/09/2008 6:05 PM TOURS HOSTESS D-DIMER Stat 01/09/2008 6:05 PM TOURS HOSTESS COMPREHENSIVE METABOLIC PANEL Stat 01/09/2008 6:05 PM TOURS HOSTESS documented in this encounter Results * D-DIMER (01/09/2008 6:05 PM TOURS HOSTESS) D-DIMER QUANT 0.30 <=0.42 ug/mL FEU [facility] Comment: DVT Screen reference range <0.45 [...] stratification. Blood specimen (specimen) 01/09/2008 6:05 PM TOURS HOSTESS 01/09/2008 6:18 PM TOURS HOSTESS us William Florez MD HEMATOLOGY ORDERABLES Final Result INTERFACE SYSTEM Refer to clinic/hospital department [facility] CLIA# [id number] [address] [place] [address] * (ABNORMAL) COMPREHENSIVE METABOLIC PANEL (01/09/2008 6:05 PM TOURS HOSTESS) CALCIUM 9.4 8.6 - 10.2 mg/dL [facility] ALBUMIN 4.8 3.4 - 4.8 g/dL [facility] CHLORIDE 101 96 - 108 mmol/L [facility] CREATININE 0.67 0.51 - 0.95 mg/dL [facility] ALT 30 0 - 31 U/L [facility] SODIUM 139 135 - 145 mmol/L [facility] ALKALINE PHOSPHATASE 112(H) 35 - 104 U/L [facility] CO2 25 22 - 30 mmol/L [facility] BILIRUBIN TOTAL 0.3 0.2 - 1.0 mg/dL [facility] POTASSIUM 3.7 3.5 - 4.9 mmol/L [facility] TOTAL PROTEIN 7.6 6.3 - 8.6 g/dL [facility] GLUCOSE 110(H) 65 - 99 mg/dL [facility] AST 29 12 - 32 U/L [facility] BUN 14 6 - 20 mg/dL [facility] GFR, >60 >=60 mL/min/1. 7 sq meter [facility] GFR >60 >=60 mL/min/1. 7 sq meter [facility] Comment: Modification of Diet in Renal Disease (MDRD) study formula. Estimated GFR rate interpretative information for both Americans and non- Americans is available on the [facility] Intranet at: [email or web address] Select: Lab Policies and Procedures Select: Reference Ranges - GFR Blood specimen (specimen) 01/09/2008 6:05 PM TOURS HOSTESS 01/09/2008 6:18 PM TOURS HOSTESS William Florez MD CHEMISTRY ORDERABLES Edited INTERFACE SYSTEM Refer to clinic/hospital department [facility] CLIA# [id number] [address] [facility] [place] [address] * CBC WITH DIFFERENTIAL (01/09/2008 6:05 PM TOURS HOSTESS) WBC 6.4 4.0 - 9.8 K/uL [facility] MCH 30.1 27.2 - 32.6 pg [facility] MPV 10.9 9.3 - 12.4 fL [facility] HEMATOCRIT 40.9 35.5 - 44.0 % [facility] RDW-STDEV 43.6 37.1 - 48.7 fL [facility] RBC 4.65 3.90 - 4.90 M/uL [facility] MCHC 34.2 31.5 - 35.5 % [facility] MCV 88.0 82.0 - 99.0 fL [facility] PLATELETS 202 140 - 350 K/uL [facility] HEMOGLOBIN 14.0 11.8 - 14.8 g/dL [facility] RDW 13.7 11.5 - 14.5 % [facility] NEUTROPHIL ABSOLUTE 3.29 1.90 - 7.00 K/uL [facility] EOSINOPHILS 2 0 - 7 % [facility] EOSINOPHIL ABSOLUTE 0.14 0.00 - 0.70 K/uL [facility] LYMPHOCYTES 38 16 - 45 % [facility] LYMPHOCYTE ABSOLUTE 2.43 0.70 - 4.50 K/uL [facility] BASOPHILS 0 0 - 2 % [facility] BASOPHILS ABSOLUTE 0.02 0.00 - 0.20 K/uL [facility] MONOCYTES 8 3 - 13 % [facility] MONOCYTE ABSOLUTE 0.53 0.10 - 1.30 K/uL [facility] NEUTROPHILS 51 45 - 70 % [facility] Blood specimen (specimen) 01/09/2008 6:05 PM TOURS HOSTESS 01/09/2008 6:18 PM TOURS HOSTESS us William Florez MD HEMATOLOGY ORDERABLES Edited INTERFACE SYSTEM Refer to clinic/hospital department [facility] CLIA# [id number] [address] [facility] [address] [place] [address] * XR CHEST PA AND LATERAL (01/09/2008 6:05 PM TOURS HOSTESS) Anatomical Region Laterality Modality Chest Other 01/09/2008 6:05 PM TOURS HOSTESS Narrative 01/09/2008 6:19 PM TOURS HOSTESS [facility] [place] [place] [address] [place], [place] [address] Admit Date: 01/09/2008 SIMRAN PENDLETON Sex: F Admit Prov: ER, AUTHORIZED P Date: 1955 Primary Care Prov: FERDINAND REGAN CMRN: [id number] [facility] N: [id number] IM[facility]ING SERVICES Ordering Prov: N/A Accession Number: [id number] Interpretation Exam: Chest x-ray PA and lateral. History: Chest pressure. The heart, mediastinum and great vessels are within normal limits. Lungs are clear. The bony thorax is intact. Impression: Negative chest.. . Dictated by: GREG QUEEN 01/09/2008 18:17 Electronically signed by: GREG QUEEN 01/09/2008 18:17 Procedure Note Greg Queen - 01/09/[address] [address] Admit Date: 01/09/2008 DEVAN SIMRAN G Sex: F Admit Prov: ER, AUTHORIZED P Date: 1955 Primary Care Prov: FERDINAND REGAN CMRN: [id number] [facility] N: [address] [place] [address] IMAGING SERVICES Ordering Prov: N/A Interpretation Exam: Chest x-ray PA and lateral. History: Chest pressure. The heart, mediastinum and great vessels are within normal limits.Lungs are clear. The bony thorax is intact. Impression: Negative chest.. . Dictated by: GREG QUEEN 01/09/2008 18:17 Electronically signed by: GREG QUEEN 01/09/2008 18:17 William Florez MD DIAGNOSTIC IMAGING OR DERABLES Final Result documented in this encounter Visit Diagnoses Not on filedocumented in this encounter Care Teams Sde Relationship Specialty Start Date End Date Bonnie Amador NP [address] [place] [phone] PCP - General NURSE PRACTITIONER 04/24/17 documented as of this encounter
--- OUTSIDE RECORDS SUMMARY | 2024-12-01 21:12 | XMS_ITS | Encounter Summary ---
Author Organization [employer] [facility] Address [address] [place] [address] Care Team Providers Care Search Engineer Name Role Phone Marjorie, Bonnie Banerjee CERTIFIED APPLIANCE SERVICE TECHNICIAN Primary Care Provider [phone]- [phone] Encounter Details Date Type Department Care Team (Late st Contact Info) Description 11/19/2007 Outpatient Historical HIS GI LAB Greg Nuñez MD [address] [place] [address] Abdominal Pain, Epigastric Social History Tobacco Use Types Packs/Day Years Used Date Smoking Tobacco: Former Cigarettes Q uit: 02/13/1979 Alcohol Use Standard Drinks/Week Comments No 0 (1 standard drink = 0.6 oz pur e alcohol) Comments No Sex and Gender Information Value Date Recorded Sex Assigned at Not on file 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 Gender Identity Not on file Sexual Orientation Not on file documented as of this encounter Plan of Treatment Not on file documented as of this encounter Procedures Procedure Name Priority Date/Time Associated Diagnosis Comments PATHOLOGY Routine 11/19/2007 3:34 PM CDT documented in this encounter Results * PATHOLOGY (11/19/2007 3:34 PM CDT) FINAL REPORT [facility] [address] [place], [place] [address] Patient: SIMRAN PENDLETON : 1955 Procedure Date: 11/19/2007 Accession Date: 11/19/2007 Case No: [id number] Ordering Dr: GREG NUÑEZ Case types AW, BW, FW, NW and SH are performed by [facility] [place], [place], [place] SURGICAL PATHOLOGY & NON-GYNECOLOGIC CYTOPATHOLOGY REPORT [...] entire specimen is submitted in cassette C1. [facility] 11.19.2007 06:07 pm Microscopic: The slides are labeled [id number], Simran Pendleton. Sections of the small bowel [...] developed and its performance characteristic determined by [facility], Department of Laboratory Medicine. It has not [...] epigastric documented in this encounter Care Teams Search Engineer Relationship Specialty Start Date End Date Bonnie Amador NP [address] [place] [phone] PCP - General NURSE PRACTITIONER 04/24/17 documented as of this encounter
--- OUTSIDE RECORDS SUMMARY | 2024-12-01 21:12 | XMS_ITS | Encounter Summary ---
Author Organization [employer] Address [address] [place] [address] Care Team Providers Care Plastics Factory Worker Name Role Phone Bonnie Amador FLY FRAME TENDER Primary Care Provider [phone]- [phone] Encounter Details Date Type Department Care Team (Late st Contact Info) Description 11/24/2007 Emergency HIS EMERGENCY ROOM [facility] Er, Authorized P NO ADDRESS ON FILE Sudhakar Dickey [place] [address] Social History Tobacco Use Types Packs/Day Years Used Date Smoking Tobacco: Former Cigarettes Q uit: 02/13/1979 Alcohol Use Standard Drinks/Week Comments No 0 (1 standard drink = 0.6 oz pur e alcohol) Comments No Sex and Gender Information Value Date Recorded Sex Assigned at Not on file Legal 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 Gender Identity Not on file Sexual Orientation [...] (11/24/2007 3:35 AM CDT) PRELIMINARY REPORT Pending [facility] FINAL REPORT No growth 24 hours [facility] 11/24/2007 3:35 AM CDT 11/24/2007 6:37 AM CDT us Sudhakar Dickey MD MICROBIOLOGY - GENERAL ORDERABLE S Final Result Performing Organization Address [facility] de Phone Number INTERFACE SYSTEM Refer to clinic/hospital department [facility] CLIA# [id number] [address] [place] [address] * (ABNORMAL) POC URINALYSIS DIPSTICK NON AUTOMATED (11/24/2007 3:10 AM CDT) LEUKOCYTE ESTERASE UA Trace(A) Negative [facility] UROBILINOGEN UA Normal <=1 mg/dL [facility] SPECIFIC GRAVITY UA 1.025 1.001 - 1.030 [facility] GLUCOSE UA Negative Negative [facility] COLOR UA Yellow [facility] NITRITE UA Negative Negative [facility] BILIRUBIN UA Negative Negative [facility] PH UA 5.0 5.0 - 8.0 [facility] KETONES UA Negative Negative [facility] CLARITY UA Clear [facility] BLOOD UA Negative Negative [facility] PROTEIN UA Negative Negative [facility] Urine specimen (specimen) 11/24/2007 3:10 AM CDT 11/24/2007 3:10 AM CDT us Authorized P Er POINT OF CARE TESTING Final Resu lt Performing Organization Address City/[facility] Co de Phone Number INTERFACE SYSTEM Refer to clinic/hospital department [facility] CLIA# [id number] [address] [place] [address] documented in this encounter Visit Diagnoses Not on filedocumented in this encounter Care Teams Plastics Factory Worker Relationship Specialty Start Date End Date Bonnie Amador NP [address] [place] [phone] PCP - General NURSE PRACTITIONER 04/24/17 documented as of this encounter
--- OUTSIDE RECORDS SUMMARY | 2024-12-01 21:12 | XMS_ITS | Encounter Summary ---
Author Organization [employer] Address [address] [place] [address] Care Team Providers Care Australian Rules Footballer Name Role Phone Bonnie Amador LIQUOR STORES AND AGENCIES SUPERVISOR Primary Care Provider +1- [phone] Encounter Details Date Type Department Care Team (Late st Contact Info) Description 02/20/2008 Outpatient Historical [facility] John Peck (Tad), [address] [place] [address] Unspecified Backache Social History Tobacco Use Types Packs/Day Years Used Date Smoking Tobacco: Former Cigarettes Q uit: 02/13/1979 Alcohol Use Standard Drinks/Week Comments No 0 (1 standard drink = 0.6 oz pur e alcohol) Comments No Sex and Gender Information Value Date Recorded Sex Assigned at Not on file 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
--- OUTSIDE RECORDS SUMMARY | 2024-12-01 21:12 | XMS_ITS | Clinical Summary ---
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
--- OUTSIDE RECORDS SUMMARY | 2024-12-01 21:12 | XMS_ITS | Encounter Summary ---
Author Organization [facility] Address [address] [place] [address] Care Team Providers Care Production Roustabout Name Role Phone Bonnie Amador ARCADE GAME TECHNICIAN Primary Care Provider [phone]- [phone] Encounter Details Date Type Department Care Team (Late st Contact Info) Description 01/07/2008 Outpatient Historical [facility] John Peck (Tad), [address] [place] [address] Thoracic or Lumbosacral Neuritis or Radiculitis, Unspecified Social History Tobacco Use Types Packs/Day Years Used Date Smoking Tobacco: Former Cigarettes Q uit: 02/13/1979 Alcohol Use Standard Drinks/Week Comments No 0 (1 standard drink = 0.6 oz pur e alcohol) Comments No Sex and Gender Information Value Date Recorded Sex Assigned at Not on file Legal Sex Female 3:29 AM CORPORATE DIRECTOR OF PHARMACY Gender Identity Not on file Sexual Orientation Not on file documented as of this encounter Plan of Treatment Not on file documented as of this encounter Procedures Procedure Name Priority Date/Time Associated Diagnosis Comments MRI LUMBAR WO CONTRAST Routine 01/07/2008 1:48 PM CORPORATE DIRECTOR OF PHARMACY documented in this encounter Results * MRI LUMBAR WO CONTRAST (01/07/2008 1:48 PM CORPORATE DIRECTOR OF PHARMACY) Anatomical Region Laterality Modality Spine Other 01/07/2008 1:48 PM CORPORATE DIRECTOR OF PHARMACY Narrative 01/07/2008 3:36 PM CORPORATE DIRECTOR OF PHARMACY [address] [address] Admit Date: 01/07/2008 SIMRAN PENDLETON Sex: F Admit Prov: JOHN PECK Date: 1955 Primary Care Prov: FERDINAND REGAN CMRN: [id number] [id number] Ordering Prov: N/A Accession Number: [id number] Interpretation MR LUMBAR SPINE WITHOUT CONTRAST.01/07/08 Clinical [...] Procedure Note Juancarlos Lino MD - 01/07/2008 [facility] [address] [address] [place], [place] [address] Admit Date: 01/07/2008 SIMRAN PENDLETON Sex: F Admit Prov: JOHN PECK Date: 1955 Primary Care Prov: FERDINAND REGAN CMRN: [id number] [facility] [id number] IM[facility]ING SERVICES Ordering Prov: N/A Interpretation MR [...] 01/07/2008 15:34 Transcribed: 01/07/2008 15:25 John [place] ([place]) [employer] GARCIA MR ORDERABLES Final Resu lt documented in this encounter Visit Diagnoses Diagnosis Thoracic or lumbosacral neuritis or radiculitis, unspecified documented in this encounter Care Teams Production Roustabout Relationship Specialty Start Date End Date Bonnie Amador NP [address] [place] [phone] PCP - General NURSE PRACTITIONER 04/24/17 documented as of this encounter
--- OUTSIDE RECORDS SUMMARY | 2024-12-01 21:12 | XMS_ITS | Encounter Summary ---
Author Organization [employer] Address [address] [place] [address] Care Team Providers Care Systems Mgr Name Role Phone Bonnie Amador PORTABLE GRINDING MACHINE OPERATOR Primary Care Provider [phone]- [phone] Encounter Details Date Type Department Care Team (Latest Contact Info) Description 11/15/2007 Outpatient Historical [facility], [address] J Luis White MD [address] [address] Abdominal Pain, Other Specified Site Social History Tobacco Use Types Packs/Day Years Used Date Smoking Tobacco: Former Cigarettes Q uit: 02/13/1979 Alcohol Use Standard Drinks/Week Comments No 0 (1 standard drink = 0.6 oz pur e alcohol) Comments No Sex and Gender Information Value Date Recorded Sex Assigned at Not on file Legal Sex Female 3:29 AM PLANT ANATOMIST Gender Identity Not on file Sexual Orientation Not on file documented as of this encounter Plan of Treatment Not on file documented as of this encounter Visit Diagnoses Diagnosis Abdominal pain, other specified site documented in this encounter Care Teams Systems Mgr Relationship Specialty Start Date End Date Bonnie Amador NP [address] [place] [phone] PCP - General NURSE PRACTITIONER 04/24/17 documented as of this encounter
--- OUTSIDE RECORDS SUMMARY | 2024-12-01 21:12 | XMS_ITS | Encounter Summary ---
Author Organization [employer] Address [address] [place] [address] Care Team Providers Care Associate Programmer Analyst Name Role Phone Bonnie Amador TRANSITIONAL STUDIES INSTRUCTOR Primary Care Provider [phone]- [phone] Encounter Details Date Type Department Care Team (Late st Contact Info) Description 01/24/2008 Emergency [facility] [place], Authorized P NO ADDRESS ON FILE Sudhakar Dickey [place] [facility] [place] [address] Social History Tobacco Use Types Packs/Day Years Used Date Smoking Tobacco: Former Cigarettes Q uit: 02/13/1979 Alcohol Use Standard Drinks/Week Comments No 0 (1 standard drink = 0.6 oz pur e alcohol) Comments No Sex and Gender Information Value Date Recorded Sex Assigned at Not on file Legal Sex Female 3:29 AM GAS COMBUSTION ENGINEER Gender Identity Not on file Sexual Orientation Not on file documented as of this encounter Plan of Treatment Not on file documented as of this encounter Procedures Procedure Name Priority Date/Time Associated Diagnosis Comments XR CHEST PA AND LATERAL 2 VW Stat 01/24/2008 7:05 PM GAS COMBUSTION ENGINEER TROPONIN (W/REFLEX CKMB/CK) Stat 01/24/2008 6:36 PM GAS COMBUSTION ENGINEER CBC WITH DIFFERENTIAL Stat 01/24/2008 6:36 PM GAS COMBUSTION ENGINEER TSH Stat 01/24/2008 6:36 PM GAS COMBUSTION ENGINEER COMPREHENSIVE METABOLIC PANEL Stat 01/24/2008 6:36 PM GAS COMBUSTION ENGINEER documented in this encounter Results * XR CHEST PA AND LATERAL (01/24/2008 7:05 PM GAS COMBUSTION ENGINEER) Anatomical Region Laterality Modality Chest Other 01/24/2008 7:0 5 PM GAS COMBUSTION ENGINEER Narrative 01/24/2008 7:27 PM GAS COMBUSTION ENGINEER [place] [address] [place] [place], [place] [address] Admit Date: 01/24/2008 SIMRAN PENDLETON Sex: F Admit Prov: ER, AUTHORIZED P Date: 1955 Primary Care Prov: FERDINAND ERGAN CMRN: [id number] [facility]: [id number] IMAGING SERVICES Ordering Prov: N/A Accession Number: [id number] Interpretation Exam: Chest x-ray PA and lateral. History: A chest pain. The heart, mediastinum and great vessels are within normal limits. Lungs are clear. The bony thorax is intact. Impression: Negative chest.. . Dictated by: GREG QUEEN 01/24/2008 19:25 Electronically signed by: GREG QUEEN 01/24/2008 19:25 Procedure Note Greg uQeen - 01/24/[address] [address] Admit Date: 01/24/2008 DEVANSIMRAN LORA Sex: F Admit Prov: ER, AUTHORIZED P Date: 1955 Primary Care Prov: FERDINAND REGAN CONOR CMRN: [id number] [facility] SS[facility]: [id number] IMAGING SERVICES Ordering Prov: N/A Interpretation Exam: [...] (ABNORMAL) COMPREHENSIVE METABOLIC PANEL (01/24/2008 6:36 PM GAS COMBUSTION ENGINEER) CREATININE 0.65 0.51 - 0.95 mg/dL [facility] SODIUM 140 135 - 145 mmol/L [facility] ALT 40(H) 0 - 31 U/L [facility] ALKALINE PHOSPHATASE 115(H) 35 - 104 U/L [facility] BILIRUBIN TOTAL 0.3 0.2 - 1.0 mg/dL [facility] CO2 25 22 - 30 mmol/L [facility] TOTAL PROTEIN 7.3 6.3 - 8.6 g/dL [facility] POTASSIUM 4.0 3.5 - 4.9 mmol/L [facility] GLUCOSE 120(H) 65 - 99 mg/dL [facility] AST 33(H) 12 - 32 U/L [facility] BUN 11 6 - 20 mg/dL [facility] CALCIUM 9.2 8.6 - 10.2 mg/dL [facility] CHLORIDE 105 96 - 108 mmol/L [facility] ALBUMIN 4.5 3.4 - 4.8 g/dL [facility] GFR, >60 >=60 mL/min/1. 7 sq meter [facility] GFR >60 >=60 mL/min/1. 7 sq meter [facility] Comment: Modification of Diet in Renal Disease (MDRD) study formula. Estimated GFR rate interpretative information for both Americans and non- Americans is available on the [facility] Intranet at: [email or web address] Select: Lab Policies and Procedures Select: Reference Ranges - GFR Blood specimen (specimen) 01/24/2008 6:36 PM GAS COMBUSTION ENGINEER 01/24/2008 6:45 PM GAS COMBUSTION ENGINEER Sudhakar Dickey MD CHEMISTRY ORDERABLES Edited Performing Organization Address [facility] de Phone Number INTERFACE SYSTEM Refer to clinic/hospital department [facility] CLIA# [id number] [address] [place] [address] * TROPONIN (W/REFLEX CKMB/CK) (01/24/2008 6:36 PM GAS COMBUSTION ENGINEER) Pathologist [facility] TROPONIN T <0.01 <=0.03 ng/mL [facility] TROPONIN T INTERP Negative [facility] Blood specimen (specimen) 01/24/2008 6:36 PM GAS COMBUSTION ENGINEER 01/24/2008 6:45 PM GAS COMBUSTION ENGINEER Sudhakar Dickey MD CHEMISTRY ORDERABLES Edited Performing Organization Address [facility] de Phone Number INTERFACE SYSTEM Refer to clinic/hospital department [facility] CLIA# [id number] [address] [place] [address] * CBC WITH DIFFERENTIAL (01/24/2008 6:36 PM GAS COMBUSTION ENGINEER) Pathologist [facility] MCV 88.4 82.0 - 99.0 fL [facility] PLATELETS 253 140 - 350 K/uL [facility] HEMOGLOBIN 13.7 11.8 - 14.8 g/dL [facility] RDW 13.2 11.5 - 14.5 % [facility] WBC 5.4 4.0 - 9.8 K/uL [facility] MCH 30.1 27.2 - 32.6 pg [facility] MPV 10.4 9.3 - 12.4 fL [facility] HEMATOCRIT 40.2 35.5 - 44.0 % [facility] RDW-STDEV 42.6 37.1 - 48.7 fL [facility] RBC 4.55 3.90 - 4.90 M/uL [facility] MCHC 34.1 31.5 - 35.5 % [facility] LYMPHOCYTE ABSOLUTE 2.39 0.70 - 4.50 K/uL [facility] BASOPHILS 0 0 - 2 % [facility] BASOPHILS ABSOLUTE 0.02 0.00 - 0.20 K/uL [facility] MONOCYTES 7 3 - 13 % [facility] MONOCYTE ABSOLUTE 0.37 0.10 - 1.30 K/uL [facility] NEUTROPHILS 46 45 - 70 % [facility] NEUTROPHIL ABSOLUTE 2.50 1.90 - 7.00 K/uL [facility] EOSINOPHILS 3 0 - 7 % [facility] EOSINOPHIL ABSOLUTE 0.15 0.00 - 0.70 K/uL [facility] LYMPHOCYTES 44 16 - 45 % [facility] Blood specimen (specimen) 01/24/2008 6:36 PM GAS COMBUSTION ENGINEER 01/24/2008 6:45 PM GAS COMBUSTION ENGINEER us Sudhakar Dickey MD HEMATOLOGY ORDERABLES Edited INTERFACE SYSTEM Refer to clinic/hospital department [facility] CLIA# [id number] [address] [place] [address] * TSH (01/24/2008 6:36 PM GAS COMBUSTION ENGINEER) TSH 0.39 0.27 - 4.20 uU/mL [facility] Blood specimen (specimen) 01/24/2008 6:36 PM GAS COMBUSTION ENGINEER 01/24/2008 6:45 PM GAS COMBUSTION ENGINEER us Sudhakar Dickey MD CHEMISTRY ORDERABLES Final Resul t INTERFACE SYSTEM Refer to clinic/hospital department [facility] CLIA# [id number] [address] [place] [address] documented in this encounter Visit Diagnoses Not on filedocumented in this encounter Care Teams Associate Programmer Analyst Relationship Specialty Start Date End Date Bonnie Amador, TRANSITIONAL STUDIES INSTRUCTOR [address] [place] [phone] PCP - General NURSE PRACTITIONER 04/24/17 documented as of this encounter
--- OUTSIDE RECORDS SUMMARY | 2024-12-01 21:12 | XMS_ITS | Encounter Summary ---
Author Organization [employer] Address [address] [place] [address] Care Team Providers Care Hospice Music Therapy Name Role Phone Bonnie Amador UTILITY PIPE LAYER Primary Care Provider [phone]- [phone] Encounter Details Date Type Department Care Team (Latest Contact Info) Description 11/16/2007 Outpatient Historical [facility] CARDIOPULMONARY Tristian Reed MD [address] [address] Unspecified Pre-Operative Examination Social History Tobacco Use Types Packs/Day Years Used Date Smoking Tobacco: Former Cigarettes Q uit: 02/13/1979 Alcohol Use Standard Drinks/Week Comments No 0 (1 standard drink = 0.6 oz pur e alcohol) Comments No Sex and Gender Information Value Date Recorded Sex Assigned at Not on file Legal Sex Female 3:29 AM 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
--- OUTSIDE RECORDS SUMMARY | 2024-12-01 21:13 | XMS_ITS | Clinical Summary ---
Author Organization [facility] Address [address] [address] Phone Care Team Providers Care Vrt Mechanic Name Role Phone Bonnie Amador NP Primary Care Provider [phone]- [phone] Allergies Active Allergy Reactions Criticality Noted Date [...] 75+ series) 2029 Insurance BS Care Teams Vrt Mechanic Relationship Specialty Start Date End Date Bonnie Amador NP PCP - General NURSE PRACTITIONER 04/24/17
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
--- OUTSIDE RECORDS SUMMARY | 2024-12-01 21:13 | XMS_ITS | Encounter Summary ---
Author Organization [facility] Address [address] [place] [address] Care Team Providers Care Radiotelegrapher Name Role Phone Bonnie Amador RESOURCES REPRESENTATIVE Primary Care Provider [phone]- [phone] Encounter Details Date Type Department Care Team (Late st Contact Info) Description 11/05/2007 Outpatient Historical [facility] Tristian Reed MD [address] [address] Hematuria Social History Tobacco Use Types Packs/Day Years Used Date Smoking Tobacco: Never Assessed Comments Unknown Sex and Gender Information Value Date Recorded Sex Assigned at Not on file Legal Sex Female 3:29 AM SPEECH THERAPIST EARLY INTERVENTION Gender Identity Not on file Sexual Orientation [...] PM CDT Narrative 11/06/2007 8:39 AM CDT [facility] [address] [place], [place] [address] Admit Date: 11/05/2007 SIMRAN PENDLETON Sex: F Admit Prov: TRISTIAN REED Date: 1955 Primary Care Prov: TRISTIAN REED CMRN: [id number] Room: [facility]: [address] [place] [address] IMAGING SERVICES Ordering Prov: N/A Accession Number: [id number] Interpretation CT ABDOMEN AND PELVIS WITH AND [...] Procedure Note Kayden Bailey MD - 11/06/[address] [address] Admit Date: 11/05/2007 SIMRAN PENDLETON Sex: F Admit Prov: TRISTIAN REED Date: 1955 Primary Care Prov: TRISTIAN REED CMRN: [id number] [id number] Ordering Prov: N/A Interpretation CT [...] CREATININE POC 0.9 0.6 - 1.3 mg/dL [facility] GFR, >60 >=60 mL/min/1.7 sq meter [facility] GFR >60 >=60 mL/min/1.7 sq meter [facility] Capillary blood specimen (specimen) 11/05/2007 2:55 PM CDT 11/05/2007 2:55 PM CDT us Tristian Reed MD POINT OF CARE TESTING Edite d INTERFACE SYSTEM Refer to clinic/hospital department [facility] CLIA# [id number] [address] [facility] [place] [address] documented in this encounter Visit Diagnoses Diagnosis Hematuria documented in this encounter Care Teams Radiotelegrapher Relationship Specialty Start Date End Date Bonnie Amador NP [address] [place] [phone] PCP - General NURSE PRACTITIONER 04/24/17 documented as of this encounter
--- OUTSIDE RECORDS SUMMARY | 2024-12-01 21:13 | XMS_ITS | Encounter Summary ---
Author Organization [facility] Address [address] [place] [address] Care Team Providers Care Network Contractor Name Role Phone Bonnie Amador CHEMICAL CHECKER Primary Care Provider [phone]- [phone] Encounter Details Date Type Department Care Team (Late st Contact Info) Description 11/08/2007 Outpatient Historical [facility] Adelaide Jaramillo MD [address] [place] [phone] Nausea with Vomiting Social History Tobacco Use Types Packs/Day Years Used Date Smoking Tobacco: Never Assessed Comments Unknown Sex and Gender Information Value Date Recorded Sex Assigned at Not on file Legal Sex Female 3:29 AM CHIP MIXING MACHINE OPERATOR Gender Identity Not on file Sexual Orientation Not on file documented as of this encounter Plan of Treatment Pending Results Name Type Priority Associated Diagnoses Date /Time CLOSTRIDIUM DIFFICILE TOXIN Microbiology Routine 11/08/2007 3:44 PM CDT STOOL CULTURE (LA,SHIG,CAMPY,[id number] ) Microbiology Routine 11/08/2007 3:44 PM CDT GIARDIA ANTIGEN Microbiology Routine 008 3:44 PM CDT STOOL CULTURE (LA,SHIG,CAMPY,[id number] ) Microbiology Routine 11/08/2007 3:44 PM CDT [...] in this encounter Results * STOOL CULTURE (LA,SHIG,CAMPY,YXH147) (11/08/2007 3:44 PM CDT) FINAL REPORT No Salmonella isolated. No Shigella isolated. No Escherichia coli serogroup O157:H7 isolated. No Camplylobacter isolated. [facility] Stool specimen (specimen) 11/08/2007 3:44 PM CDT 11/08/2007 6:06 PM CDT Adelaide Jaramillo MD MICROBIOLOGY - GENERAL O RDERABLES Final Result INTERFACE SYSTEM Refer to clinic/hospital department [facility] CLIA# [id number] [facility] [place] [address] * CLOSTRIDIUM DIFFICILE TOXIN (11/08/2007 3:44 PM CDT) FINAL REPORT NO Clostridium difficile Toxin A or B detected by EIA. A negative result does not rule out C. difficile associated diarrhea or colitis. [facility] Stool specimen (specimen) 11/08/2007 3:44 PM CDT 11/08/2007 6:06 PM CDT Adelaide Jaramillo MD MICROBIOLOGY - GENERAL O RDERABLES Final Result Performing Organization Address [facility] de Phone Number INTERFACE SYSTEM Refer to clinic/hospital department [facility] CLIA# [id number] [address] [place] [place] [address] * GIARDIA ANTIGEN (11/08/2007 3:44 PM CDT) FINAL REPORT Giardia Antigen: Negative by EIA. -- Note: A negative does not rule out infection. [facility] Stool specimen (specimen) 11/08/2007 3:44 PM CDT 11/08/2007 6:06 PM CDT Adelaide Jaramillo MD MICRO - GEN ORDERABLES C OM Final Result Performing Organization Address [facility] de Phone Number INTERFACE SYSTEM Refer to clinic/hospital department [facility] CLIA# [id number] [address] [place] [address] * GLIADIN ABS IGG/IGA (11/08/2007 3:44 PM CDT) GLIADIN IGA AB 5 <11 U/mL [facility] Comment: Reference Range: <11 U/mL Negative 11-17 U/mL Equivocal >17 U/mL Positive Lab test performed by: [facility] [address] [place] [address] SHANELL LOCKE MD GLIADIN IGG AB <3 <11 U/mL [facility] Comment: Reference Range: <11 U/mL Negative 11-17 U/mL Equivocal >17 U/mL Positive Blood specimen (specimen) 11/08/2007 3:44 PM CDT 11/08/2007 5:27 PM CDT Adelaide Jaramillo MD CHEMISTRY ORDERABLES Fin al Result Performing Organization Address [facility] de Phone Number INTERFACE SYSTEM Refer to clinic/hospital department [facility] CLIA# [id number] [address] [place] [address] * ROTAVIRUS ANTIGEN (11/08/2007 3:44 PM CDT) FINAL REPORT Rotavirus Antigen: Negative by ICT assay. -- Note: A negative does not rule out infection. [facility] Stool specimen (specimen) 11/08/2007 3:44 PM CDT 11/08/2007 6:06 PM CDT Adelaide Jaramillo MD BODY FLUIDS AND STOOLS F inal Result Performing Organization Address [facility] de Phone Number INTERFACE SYSTEM Refer to clinic/hospital department [facility] CLIA# [id number] [address] [place] [address] * OVA AND PARASITE SCREEN (11/08/2007 3:44 PM CDT) PRELIMINARY REPORT Pending [facility] FINAL REPORT Concentration : No ova or parasites seen. Trichrome: No ova or parasites seen. [facility] Stool specimen (specimen) 11/08/2007 3:44 PM CDT 11/08/2007 6:06 PM CDT Narrative INTERFACE SYSTEM - 11/16/2007 12:08 PM CDT Performed by [facility] [address] Performed by [facility] [address] Adelaide Jaramillo MD MICROBIOLOGY - GENERAL O RDERABLES Final Result Performing Organization Address [facility] de Phone Number INTERFACE SYSTEM Refer to clinic/hospital department [facility] CLIA# [id number] [address] [place] [address] * FECAL LEUKOCYTES STAIN (11/08/2007 3:44 PM CDT) FINAL REPORT No WBC's seen. [facility] Stool specimen (specimen) 11/08/2007 3:44 PM CDT 11/08/2007 6:06 PM CDT Adelaide Jaramillo MD MICROBIOLOGY - GENERAL O RDERABLES Final Result INTERFACE SYSTEM Refer to clinic/hospital department [facility] CLIA# [id number] [address] [place] [address] documented in this encounter Visit Diagnoses Diagnosis Nausea with vomiting documented in this encounter Care Teams Network Contractor Relationship Specialty Start Date End Date Bonnie Amador NP [address] [place] [phone] PCP - General NURSE PRACTITIONER 04/24/17 documented as of this encounter
--- OUTSIDE RECORDS SUMMARY | 2024-12-01 21:13 | XMS_ITS | Encounter Summary ---
Author Organization [facility] Address [address] [place] [address] Care Team Providers Care Electronics Assembler Name Role Phone Bonnie Amador DUMPER BAILER OPERATOR Primary Care Provider [phone]- [phone] Encounter Details Date Type Department Care Team (Late st Contact Info) Description 11/07/2007 Outpatient Historical HIS [facility] JACK Perez, Adelaide Storm MD [address] [place] [phone] Nausea with Vomiting Social History Tobacco Use Types Packs/Day Years Used Date Smoking Tobacco: Never Assessed Comments Unknown Sex and Gender Information Value Date Recorded Sex Assigned at Not on file Legal Sex Female 3:29 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 Gender Identity Not on file Sexual Orientation [...] ALKALINE PHOSPHATASE 91 35 - 104 U/L [facility] BILIRUBIN TOTAL 0.3 0.2 - 1.0 mg/dL [facility] CO2 26 22 - 30 mmol/L [facility] TOTAL PROTEIN 7.4 6.3 - 8.6 g/dL [facility] [place] POTASSIUM 4.2 3.5 - 4.9 mmol/L [facility] [place] GLUCOSE 100(H) 65 - 99 mg/dL [facility] [place] AST 25 12 - 32 U/L [facility] [place] BUN 8 6 - 20 mg/dL [facility] [place] CALCIUM 9.2 8.6 - 10.2 mg/dL [facility] [place] CHLORIDE 106 96 - 108 mmol/L [facility] [place] ALBUMIN 4.6 3.4 - 4.8 g/dL [facility] CREATININE 0.80 0.51 - 0.95 mg/dL [facility] [place] SODIUM 143 135 - 145 mmol/L [facility] [place] ALT 23 0 - 31 U/L [facility] [place] GFR, >60 >=60 mL/min/1. 7 sq meter [facility] GFR >60 >=60 mL/min/1. 7 sq meter [facility] Comment: Modification of Diet in Renal Disease (MDRD) study formula. Estimated GFR rate interpretative information for both Americans and non- Americans is available on the [facility] Intranet at: [email or web address] Select: Lab Policies and Procedures Select: Reference Ranges - GFR Blood specimen (specimen) 11/07/2007 5:02 PM CDT 11/07/2007 5:08 PM CDT Adelaide Perez MD CHEMISTRY ORDERABLES [facility] Organization Address City/State/ZIP Co de Phone Number INTERFACE SYSTEM Refer to clinic/hospital department [facility] CLIA# [id number] [address] [place] [address] * LIPASE (11/07/2007 5:02 PM CDT) LIPASE 32 13 - 60 U/L [facility] Blood specimen (specimen) 11/07/2007 5:02 PM CDT 11/07/2007 5:08 PM CDT Adelaide Perez MD CHEMISTRY ORDERABLES Fin al Result Performing Organization Address [facility] de Phone Number INTERFACE SYSTEM Refer to clinic/hospital department [facility] CLIA# [id number] [address] [place] [address] * C-REACTIVE PROTEIN (11/07/2007 5:02 PM CDT) CRP 0.2 0.0 - 0.8 mg/dL [facility] Blood specimen (specimen) 11/07/2007 5:02 PM CDT 11/07/2007 5:08 PM CDT Adelaide Perez MD CHEMISTRY ORDERABLES Fin al Result Performing Organization Address City/[facility] de Phone Number INTERFACE SYSTEM Refer to clinic/hospital department [facility] CLIA# [id number] [address] [place] [address] * CBC WITH DIFFERENTIAL (11/07/2007 5:02 PM CDT) WBC 6.6 4.0 - 9.8 K/uL [facility] MCH 30.2 27.2 - 32.6 pg [facility] MPV 10.8 9.3 - 12.4 fL [facility] [place] HEMATOCRIT 41.3 35.5 - 44.0 % [facility] RDW-STDEV 41.5 37.1 - 48.7 fL [facility] [place] RBC 4.64 3.90 - 4.90 M/uL [facility] MCHC 33.9 31.5 - 35.5 % [facility] [place] MCV 89.0 82.0 - 99.0 fL [facility] [place] PLATELETS 210 140 - 350 K/uL [facility] [place] HEMOGLOBIN 14.0 11.8 - 14.8 g/dL [facility] RDW 13.0 11.5 - 14.5 % [facility] BASOPHILS 0 0 - 2 % [facility] BASOPHILS ABSOLUTE 0.02 0.00 - 0.20 K/uL [facility] MONOCYTES 6 3 - 13 % [facility] MONOCYTE ABSOLUTE 0.38 0.10 - 1.30 K/uL [facility] NEUTROPHILS 58 45 - 70 % [facility] NEUTROPHIL ABSOLUTE 3.85 1.90 - 7.00 K/uL [facility] EOSINOPHILS 2 0 - 7 % [facility] EOSINOPHIL ABSOLUTE 0.13 0.00 - 0.70 K/uL [facility] [place] LYMPHOCYTES 34 16 - 45 % [facility] LYMPHOCYTE ABSOLUTE 2.25 0.70 - 4.50 K/uL [facility] Blood specimen (specimen) 11/07/2007 5:02 PM CDT 11/07/2007 5:07 PM CDT Narrative INTERFACE SYSTEM - 11/07/2007 6:[address] perez 11/07/07 6:13 PM dl verbal results to dr perez 11/07/07 6:16 PM dl us Adelaide Perez MD HEMATOLOGY ORDERABLES Ed ited INTERFACE SYSTEM Refer to clinic/hospital department [facility] CLIA# [id number] [address] [facility] [place] [address] documented in this encounter Visit Diagnoses Diagnosis Nausea with vomiting documented in this encounter Care Teams Electronics Assembler Relationship Specialty Start Date End Date Bonnie Amador NP [address] [place] [phone] PCP - General NURSE PRACTITIONER 04/24/17 documented as of this encounter
--- OUTSIDE RECORDS SUMMARY | 2024-12-01 21:14 | XMS_ITS | Patient Health Record ---
Author Organization [facility] Address [address] [place] [address] Care Team Providers Care Section Supervisor Name Role Phone Nina Ordoñez Primary Care Provider Gricel Murphy Unavailable [phone] Migration, Provider Unavailable Unavailable Kwadwo Bales Unavailable [phone] Allergies Allergen (clinical drug ingredient) Drug/Non Drug Allergy documented on EMR Reaction Allergy Type Onset Date Status venlafaxine Effexor XR Itch, Rash Drug Allergy Act isma metronidazole Flagyl Itch, Rash Drug Allergy Ac tive escitalopram Escitalopram Unknown Drug Allergy A ctive Latex Latex Unknown Allergy Active Penicillin Unknown Drug Allergy Active Substance with sulfonamide structure and antibacterial mechanism of action (substance) Sulfa Antibiotics Unknown Drug Allergy Active tramadol Tramadol , Drug Allergy Active Results Component Value Reference Range Notes EGD, Upper GI Diagnostic-432 35 Reviewed date:11/12/2024 07:23:34 AM Interpretation: Performing Lab: Notes/Report: Reason For Referral No Information Medications Medication SIG (Take, Route, Frequency, Duration) Notes Start Date End Date Status Tirosint 100 MCG Capsule 1 capsule in the morning on an empty stomach Orally Once a day Active QUEtiapine Fumarate 25 MG Tablet 2 tablet at bedtime Orally Once a day Active Synthroid 112 MCG Tablet 1 tablet in the morning on an empty stomach Orally Once a day Not-Taking Pantoprazole Sodium 40 MG Tablet Delayed Release 1 tablet 1/2 to 1 hour before morning meal Orally Once a day; Duration: 90 days 10/22/2024 Active Ambien *Pick strength-form from [employer] for eRX* Not-Taking Vitamin D3 *[facility]* Active Atenolol 100 MG Tablet 1 tablet Orally Once a day Active Garlic *Pick strength-form from [employer] for eRX* Not-Taking Repatha 140 MG/ML Solution Prefilled Syringe 1 mL Subcutaneous Active Amlodipine *Reorder from [employer] for eRx and Interaction Alerts* Not-Taking Entresto 49-51 MG Tablet 1 tablet Orally Twice a day Active Hydrocodone Bitartrate 30 MG Capsule ER 12 Hour Abuse-Deterrent as directed Orally Not-Ta laurie dilTIAZem HCl 30 MG Tablet as directed Orally Active Hydrocil 95 % Packet 1 packet with 8 ounces of liquid as needed Orally Once a day Not-Taking Nitroglycerin 0.3 MG Tablet Sublingual as directed Sublingual as needed Active Losartan Potassium 50 MG Tablet 1 tablet Orally Once a day; Duration: 30 day(s) 09/07/2022 Not-Taking Protonix 40 MG Tablet Delayed Release 1 tablet 1/2 to 1 hour before meal Orally BID; Duration: 14 days 11/19/2024 Active HYDROcodone-Acetami nophen 7.5-325 MG Tablet 1 tablet as needed Orally every 6 hrs Active Isosorbide Mononitrate 10 MG Tablet 1 tablet Orally Twice a day Not-Taking Probiotic *Pick strength-form from [employer] for eRX* Active Tetracycline HCl 500 MG Capsule 1 capsule on an empty stomach Orally QID; Duration: 14 days 11/19/2024 5 Active Bismuth Subsalicylate 525 MG Tablet 1 tablet Orally QID; Duration: 14 days 11/19/2024 5 Active metroNIDAZOLE 500 MG Tablet 1 tablet Orally TID; Duration: 14 days 11/19/2024 5 Active MiraLax 17 GM/SCOOP Powder 1 scoop mixed with 8 ounces of fluid Orally Once a day Not-Taking Immunizations Vaccine Route Administration Date Status Comme nts Influenza (whole), CPT 79022 Inactive Unknown 02/13/2011 Administered Influenza (whole), CPT 22644 Inactive Unknown 03/06/2018 Administered Social History Tobacco [...] Problem Status W/U Status Risk Notes Problem Gastro-esophageal reflux disease without esophagitis (171468819) Gastro-esophageal reflux disease without esophagitis (K21.9) Active confirmed Problem Fibromyalgia (063864933) Fibromyalgia (M79.7) Active confirmed Problem Epigastric pain (79604043) Epigastric pain (R10.13) Active confirmed Problem Irritable bowel syndrome characterized by constipation (185324882) Irritable bowel syndrome with constipation (K58.1) Active confirmed Problem Drug-induced constipation (29343924) Drug induced constipation (K59.03) Active confirmed Problem Essential hypertension (46339111) Essential hypertension (I10) Active confirmed Problem Gastroesophageal reflux disease (disorder) (773160268) Chronic GERD (K21.9) Active confirmed Problem Anxiety (07943642) Anxiety (F41.9) Active confi rmed Problem Family History of Cancer of Colon (Situation) (617892325) Family history of colon cancer (Z80.0) Active confirmed Problem Hypothyroidism (71634133) Hypothyroidism (acquired) (E03.9) Active confirmed Problem Globus sensation (398163756) Globus sensation (F45.8) Active confirmed Problem History of urinary tract infection (1422065887226) History of UTI (Z87.440) Active confirmed Problem Dysphagia (73447108) Dysphagia (R13.10) Active confirmed Problem Disorder of urinary bladder (79739124) Bladder wall thickening (N32.89) Active confirmed Problem Renal cyst (032715527) Bilateral renal cysts (N28.1) Active confirmed Problem Bladder mass (382439242) Bladder mass (N32.89) Active confirmed Problem Atrophic gastritis (77831516) Chronic gastritis, presence of bleeding unspecified, unspecified gastritis type (K29.50) Active confirmed Problem Chronic depression (362130022) Chronic depression (F32.A) Active confirmed Problem Primary osteoarthritis (880030287) Primary osteoarthritis involving multiple joints (M15.9) Active confirmed Vital Signs Temperature 97 degrees Fahrenheit 10/22/2024 Height-cm 165.1 cm 10/22/2024 Blood pressure diastolic 62 mm Hg 10/22/2024 Oximetry 98 % 10/22/2024 Weight-kg 88.45 kg 10/22/2024 Height 65 in 10/22/2024 Blood pressure systolic 102 mm Hg 10/22/2024 Weight 195 lbs 10/22/2024 BMI 32.45 kg/m2 10/22/2024 Encounters Encounter Location Date Provider Diagnosis [facility] [address] [place] [address] 11/05/2024 Gricel Victorjoycelyn [facility] [address] [place] [address] 10/22/2024 Nina Ordoñez Chronic GERD K21.9 ; Nausea and vomiting in adult R11.2 ; Heartburn R12 ; Dysphagia R13.10 ; Globus sensation F45.8 and Screening for colon cancer Z12.11 Migrated_Facility 0 0 12/09/2023 Provider Migration [facility]Fac[facility] 0 0 12/10/2023 Provider Migration [facility] [address] [place] [address] 09/11/2024 Nina Ordoñez [facility] [address] [place] [address] 10/27/2024 Nina [facility] [address] [place] [address] 11/07/2024 Gricel Murphy Helicobacter pylori [H. pylori] as the cause of diseases classified elsewhere B96.81 Assessments Encounter Date Diagnosis (ICD Code) Assessment Notes Treatment Notes Treatment Clinical Notes Section Notes 10/22/2024 Chronic GERD (ICD-10 - K21.9) Chronic GERD associated with uncontrolled reflux, nausea, vomiting, dysphagia, globus sensation. Current reflux treatment: None Risk factors: Absence of PPI therapy, Chronic reflux, age Differentials: uncontrolled reflux, Esophageal stricture, esophagitis, esophageal dysmotility, esophageal spasm, oropharyngeal dysphagia Previous endoscopy records reviewed and noted. Last EGD: 07/12/2018. Recommend EGD for further evaluation with endoscopic intervention as indicated. EGD procedure, risks, benefits, potential complications, and potential interventions discussed. Questions answered to apparent satisfaction. Verbalizes understanding. Desires to proceed with the proposed plan. Schedule EGD Advised to avoid any OTC supplements, NSAIDs, and aspirin 3 days prior to endoscopy. Follow-up to be arranged based on endoscopy findings and interventions Recommend strict reflux precautions Start pantoprazole 40 mg daily. 11/07/2024 Helicobacter pylori [H. pylori] as the cause of diseases classified elsewhere (ICD-10 - B96.81) 10/22/2024 Nausea and vomiting in adult (ICD-10 - R11.2) 10/22/2024 Heartburn (ICD-10 - R12) 10/22/2024 Dysphagia (ICD-10 - R13.10) 10/22/2024 Globus sensation (ICD-10 - F45.8) 10/22/2024 Screening for colon cancer (ICD-10 - Z12.11) Colonoscopy from 07/12/2018 reviewed and noted. The patient recieved a letter from the clinic recommending a colonoscopy in June 2023. It does not appear the patient is due for a colonoscopy at this time. No previous history of colon polyps noted on endoscopy, no increased risk due to family history of colon cancer, rotary drum tanner recommended a 10 year follow up screening colonoscopy. Colon cancer risks, prevention strategies, and screening guidelines discussed with the patient. Last colonoscopy reviewed with patient. Family history of colon cancer discussed. AGA recommendations for cancer screening/surveillanc e discussed. No colonoscopy due at this time. Recommend screening colonoscopy in June 2028. Plan Of Treatment Future Test Test Name Order Date H Pylori Breath Test--[id number] 12/23/2024 Insurance Providers Payer Name Payer Address Payer Phone Subscriber Number Group Number Insured Name Patient Relationship to Insured Coverage Start Date Coverage End Date Medicare [address] [address] [place] [phone] [id number] MARLINE PENDLETON Self - patient is the insured [employer] Medicare Supplement [address] [place] [phone] [id number] MARLINE PENDLETON Self - patient is the [...] Surgical History Surgery Date(Month/Year) hysterectomy thyroidectomy, complete both knees replaced Leg surgery Hospitalization History Reason Date(Month/Year) see surg [facility] For abdominal pain and vomit ing 10/2022
--- OUTSIDE RECORDS SUMMARY | 2024-12-01 21:14 | XMS_ITS | Patient Health Record ---
Author Organization [facility], [facility] Address [address] [facility] [place] [address] Care Team Providers Care Tower Hand Name Role Phone Bonnie Amador APRN Primary Care Provider Monicaaditi GEOVANNA Reed Unavailable [phone] Allergies Allergen (clinical drug ingredient) Drug/Non Drug [...] Active Results Component Value Reference Range Notes Urinalysis, Routine Reviewed date:12/26/2023 02:51:31 PM Interpretation: Performing Lab: Notes/Report: Urine-Color willis Appearance clear Glucose - Bilirubin - Ketones - Specific [place] 1.025 Occult Blood - pH 6.0 Urine Protein - Urobilinogen,Semi-Qn - Nitrite, Urine - WBC Esterase - Urinalysis Gross Exam - Urinalysis, Routine Reviewed date:05/03/2024 09:53:31 AM Interpretation: Performing Lab: Notes/Report: Urine-Color yellow Appearance clear Glucose - Bilirubin - Ketones - Specific [place] 1.025 Occult Blood +- pH 6.0 Urine Protein - Urobilinogen,Semi-Qn - Nitrite, Urine - WBC Esterase - Gx - Recurrent Persistent Co mplicated UTI Reviewed date:05/06/2024 02:20:55 PM Interpretation: Performing Lab:, [id number] Notes/Report: PatientName: : Gender: PatientRelation: PatientAddress: , , , InsuranceName: InsuranceCode: Test Result: Guidance, Voided Uri ne, UTI Surgical, Test Result: PATHOGENIC DNA DETECTED#A*F UTIAbnormalFlag: Guidance, Voided Uri ne, UTI Surgical, UTIAbnormalFlag: A Reason For Referral Reason Referral to [facility] for pelvic pressure after hysterectomy, possible prolapse Diagnosis 1 S/P hysterectomy (Z9 0.710) Diagnosis 2 Pelvic pressure in f emale (R10.2) Referral Organization [facility] Referring Provider First Name GEOVANNA Referring Provider Last Name ANAM [facility]erred Provider Specialty Binder And Box Builder Referral Priority Routine Medications Medication SIG (Take, Route, Frequency, Duration) Notes Start Date End Date Status Hydrocil 95 % 1 packet with 8 ounces of liquid as needed Orally Once a day Not-Taking QUEtiapine Fumarate 25 MG 2 tablet at bedtime Orally Once a day Active Hydrocodone Bitartrate 30 MG as directed Orally *Pick strength-form from FAB BAG for eRX* Not-Taking Losartan Potassium 50 MG 1 tablet Orally Once a day; Duration: 30 day(s) 09/07/2022 Active Atorvastatin Calcium Not-Taking HYDROcodone-Acetamin ophen 7.5-325 MG 1 tablet as needed Orally every 6 hrs Active Myrbetriq 50 mg TAKE ONE TABLET BY MOUTH DAILY; Duration: 30 Active [place] Thyroid Not-T aking Synthroid 112 MCG 1 tablet in the morning on an empty stomach Orally Once a day Not-Taking Plavix Active Isosorbide Mononitrate 10 MG 1 tablet Orally Twice a day Not-Taking Aspir-81 Active Lisinopril Not-Takin g Entresto Active Repatha 140 MG/ML 1 mL Subcutaneous Active Estradiol 0.1 MG/GM 1g (pea sized amount) Vaginal 3x per week at bedime x 8 weeks, then weekly for maintenance; Duration: 90 days 12/26/2023 Active Nitroglycerin 0.3 MG as directed Sublingual as needed Active oxyBUTYnin Chloride ER 10 MG 1 tablet Orally Once a day Not-Taking Immunizations Vaccine Route Administration Date Status Comme nts Influenza (whole), CPT 26298 Inactive Unknown 02/13/2011 Administered Influenza (whole), CPT 10885 Inactive Unknown 03/06/2018 Administered Social History Tobacco Use: Social History Observation Description Date Details (start date - stop date) Never Smoker NA - NA Tobacco Use/Smoking Question Answer Notes Tobacco use: nonsmoker Problems Problem Type SNOMED Code ICD Code Onset Dates Problem Status W/U Status Risk Notes Problem Overactive bladder (016940100) Overactive bladder (N32.81) Active confirmed Problem Drug-induced constipation (03700535) Drug induced constipation (K59.03) Active confirmed Problem Family History of Cancer of Colon (Situation) (782114010) Family history of colon cancer (Z80.0) Active confirmed Problem History of hysterectomy (335566988) S/P hysterectomy (Z90.710) Active confirmed Problem Chronic cystitis (90210611) Chronic cystitis (N30.20) Active confirmed Problem Renal cyst (693242452) Bilateral renal cysts (N28.1) Active confirmed Problem Chronic interstitial cystitis (98063145086090) Chronic interstitial cystitis (N30.10) Active confirmed Problem History of urinary tract infection (4681175147700) History of UTI (Z87.440) Active confirmed Problem Disorder of urinary bladder (83698458) Bladder wall thickening (N32.89) Active confirmed Problem Bladder mass (312355301) Bladder mass (N32.89) Active confirmed Vital Signs Heart Rate 67 /min 12/26/2023 Height-cm 165.1 cm 12/26/2023 Blood pressure diastolic 84 mm Hg 12/26/2023 Weight-kg 86.18 kg 12/26/2023 Height 65 in 12/26/2023 Blood pressure systolic 133 mm Hg 12/26/2023 Weight 190 lbs 12/26/2023 BMI 31.61 kg/m2 12/26/2023 Procedures Procedure Date Ordered Date Performed Result Body Sit e Bladder Scan 12/26/2023 12/26/2023 PVR 24ml Bladder Scan 05/03/2024 05/03/2024 N/A Encounters Encounter Location Date Provider Diagnosis [facility] [place] [address] [place] [address] 12/26/2023 GEOVANNA MENDIETA Chronic cystitis N30 .20 ; Vaginal dryness N89.8 ; Pelvic pressure in female R10.2 ; S/P hysterectomy Z90.710 ; Overactive bladder N32.81 ; Urinary frequency R35.0 ; Urinary urgency R39.15 ; Chronic constipation K59.09 and History of UTI Z87.440 [facility], [facility] [address] [facility] [place] [address] 05/03/2024 GEOVANNA MENDIETA Chronic cystitis N30 .20 ; Dysuria R30.0 ; Chills R68.83 ; Microscopic hematuria R31.29 ; Pelvic pressure in female R10.2 ; S/P hysterectomy Z90.710 and History of UTI Z87.440 [email or web address], [facility] [address] [facility] [place] [address] 12/06/2023 GEOVANNA IAMTONY [facility], [facility] [address] [facility] [place] [address] 05/07/2024 GEOVANNA MENDIETA [facility], [facility] [address] [facility] [place] [address] 05/30/2024 GEOVANNA MENDIETA Assessments Encounter Date Diagnosis (ICD Code) Assessment Notes Treatment Notes Treatment Clinical Notes Section Notes 12/26/2023 Chronic cystitis (ICD-10 - N30.20) 12/26/2023 Vaginal dryness (ICD-10 - N89.8) 05/03/2024 Dysuria (ICD-10 - R30.0) 05/03/2024 Chronic cystitis (ICD-10 - N30.20) 05/03/2024 Chills (ICD-10 - R68.83) 12/26/2023 Pelvic pressure in female (ICD-10 - R10.2) 05/03/2024 Microscopic hematuria (ICD-10 - R31.29) 12/26/2023 S/P hysterectomy (ICD-10 - Z90.710) 05/03/2024 Pelvic pressure in female (ICD-10 - R10.2) 12/26/2023 Overactive bladder (ICD-10 - N32.81) 12/26/2023 Urinary frequency (ICD-10 - R35.0) 05/03/2024 S/P hysterectomy (ICD-10 - Z90.710) 05/03/2024 History of UTI (ICD-10 - Z87.440) 12/26/2023 Urinary urgency (ICD-10 - R39.15) 12/26/2023 Chronic constipation (ICD-10 - K59.09) 12/26/2023 History of UTI (ICD-10 - Z87.440) 12/26/2023 Other UA is clear, PV R 25ml. We have discussed that atrophic vaginal tissue can cause chronic dysuria. Recommend trialing vaginal estrogen. Administration and s/e profile reviewed. Rx sent in. She is having pelvic pressure and feeling like something is falling. She is s/p hysterectomy. She has not seen MARRIAGE THERAPIST in sometime. Recommend referral for pelvic exam [...] weekend. She did not get scheduled for MARRIAGE THERAPIST appt, we will follow up on this. RTC in 3 months with UA/PVR, or PRN sooner. Plan Of Treatment Pending Test Test Name Order Date Colonoscopy, High Risk Screening-G0105 0 09/07/2022 CULTURE, URINE, ROUTINE (395) 10/30/2023 Insurance Providers Payer Name Payer Address Payer Phone Subscriber Number Group Number Insured Name Patient Relationship to Insured Coverage Start Date [place]age End Date [place] [address] [address] [place], [place] [id number] MARLINE PENDLETON Self - [facility] the insured [facility] [address] [place]ÍNEZ DECKER [id number] MARLINE PENDLETON Self - patient is the [...]
[2024-12-01 21:15] VITALS: BP 126/76; PULSE 109; RESP 18; TEMP 36.6; O2SAT 95
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
[2024-12-01 22:09] LABS: Hematocrit 35.8 % (36-47); Hemoglobin 11.90 g/dL (11.27-16.99); Mean Corpuscular HGB Conc 33.2 g/dL (30-55); Mean Corpuscular Hemoglobin 31.0 pg (27-33); Mean Corpuscular Volume 93.2 fl (85-98); Nucleated Red Blood Cells % 0 %; Platelet Count 170 10^3/cmm (157-399); Red Blood Count 3.84 10^6/uL (3.85-5.65); White Blood Count 4.64 10^3/uL (3.29-11.43)
[2024-12-01 22:13] VITALS: BP 116/61; PULSE 79; RESP 16; TEMP 36.7; O2SAT 97
[2024-12-01 22:38] VITALS: BP 94/57; PULSE 73; O2SAT 93
[2024-12-01 22:39] LABS: Troponin(5th) Baseline 27 ng/L (0-10)
[2024-12-01 22:44] LABS: Alanine Aminotransferase 15 U/L (0-33); Albumin Level 4.3 g/dL (3.5-5.2); Alkaline Phosphatase 106 U/L (35-105); Anion Gap 19.8 (5-19); Aspartate Amino Transferase 22 U/L (0-32); Blood Urea Nitrogen 10 mg/dL (8-23); Calcium 8.8 mg/dL (8.5-10.5); Carbon Dioxide 20 mmol/L (22-29); Chloride 102 mmol/L (98-107); Creatinine Clr Calc Pharmacy 72.8123; Globulin 2.2 g/dL (1.3-4.6); Glucose 154 mg/dL (65-115); Lipase 28 U/L (13-60); Osmolality Calculated 288 mOsm/kg (285-295); Potassium 3.8 mmol/L (3.5-5.1); Sodium 138 mmol/L (136-145); Total Protein 6.5 g/dL (6.6-8.7)
[2024-12-01 22:46] LABS: NT Pro B Type Natriuretic Pept 77 pg/mL (0-125); Thyroid Stimulating Hormone 9.92 uIU/mL (0.27-4.20)
[2024-12-02 00:10] VITALS: BP 112/77; PULSE 62; O2SAT 96
[2024-12-02 00:30] LABS: Troponin 5 2HR 23.62 ng/L (0-10)
[2024-12-02 00:31] LABS: Troponin 5 2HR Delta -3.38 ABS# (0-10)
[2024-12-02 01:01] VITALS: BP 132/72; PULSE 61; O2SAT 97
== END 2024-12-02 01:02 | disposition home or self-care (01) ==
PROVIDERS: Emergency Provider Emergency Medicine; PCP Nurse Practitioner
DX: R07.9 Chest pain, unspecified (principal); Z79.82 Long term (current) use of aspirin; Z79.02 Long term (current) use of antithrombotics/antiplatelets; I25.10 Atherosclerotic heart disease of native coronary artery without angina pectoris; E78.5 Hyperlipidemia, unspecified; I11.0 Hypertensive heart disease with heart failure; I50.30 Unspecified diastolic (congestive) heart failure
CPT/HCPCS: 36415; 71045; 80053; 83690; 83880; 84443; 84484; 85025; 93005; 99285

== ENCOUNTER → 2024-12-23 14:27 | Outpatient (BNVA) | payer MEDICARE, OTHER, SELFPAY | PROVIDERS: PCP Nurse Practitioner; Visit Provider Nurse Practitioner | DX: R73.9 Hyperglycemia, unspecified (principal); E03.8 Other specified hypothyroidism | CPT/HCPCS: 83036; 84439; 84443; 84481 ==